=== PATIENT | female | born 1950 | race Caucasian/White ===

== ENCOUNTER 2016-06-14 11:19 | Observation (INO) ==
--- NOTE | 2016-06-14 11:49 | Emergency Department Note ---
Disposition Clinical Impression: Acute exacerbation of chronic obstructive airways disease, CAD (coronary artery disease), UTI (urinary tract infection), Bronchitis, Sepsis, Tachycardia Disposition: Admitted As Inpatient Referrals: Eagle Olivares MD [Primary Care Provider] - General Adult HPI - General Stated complaint: A-fib, chest pain Time Seen by Provider: 06/14/16 11:46 - History of Present Illness HPI Narrative: 65-year-old female with history of COPD, she is not oxygen dependent, she reports emergency department complaining of a cough runny nose and some ear pain and sore throat. She reports multiple sick contacts. The patient has had a fever. She was sent in by primary care for concerns regarding fast heart rate. The patient denies any syncope coughing up blood and no abdominal pain vomiting or diarrhea. She reports chest pain only with coughing or on occasion when breathing in and out. She has had no leg swelling or pain or coughing of blood she does not take blood thinner she has no personal history of DVT PE but does have a history of lung cancer and previous pneumonectomy. There is no history of back pain or urinary symptoms. There is no history of syncope. No falls or injuries. The patient does have a history of CAD. No trouble moving the arms or legs independently. There is no history of flank pain back pain or any other complaint or concern. - Related Data Home Medications Medication Instructions Recorded Confirmed Albuterol Neb [Proventil Neb] 2.5 mg IH TID 06/12/15 06/14/16 Aspirin [Adult Low Dose Aspirin EC] 325 mg PO DAILY 06/12/15 06/14/16 Isosorbide MONOnitrate (24 HR) 30 mg PO DAILY 06/12/15 06/14/16 [Imdur] Metoprolol [Lopressor] 25 mg PO DAILY 06/12/15 06/14/16 Albuterol Sulfate [Proair Hfa] 2 puff IH Q6H 06/14/16 06/14/16 Budesonide/Formoterol 160/4.5 2 puff IH BID 06/14/16 06/14/16 [Symbicort 160/4.5] Allergies Allergy/AdvReac Type Severity Reaction Status Date / Time cephalexin [From Keflex] Allergy Hives Verified 06/12/15 09:08 codeine Allergy Chest Pain Verified 06/12/15 09:08 Penicillins Allergy Hives Verified 06/12/15 09:08 Qgyvnjv-Djw-Net Reductase AdvReac Muscle Pain Verified 06/14/16 15:34 Inhibitor All systems ED: reviewed and negative except as stated. Past Medical History - Past Medical History Medical history: Reports: COPD, dementia, hyperlipidemia, myocardial infarction , other Surgical history: Reports: angioplasty/stent, appendectomy, cholecystectomy, hysterectomy Psychiatric history: Reports: no psych history - Social History Smoking Status: Current every day smoker Smokeless Tobacco Status: No Alcohol use: Reports: none Drug use: Reports: none Physical Exam - General Limitations: no limitations General appearance: alert, in no apparent distress - Head Head exam: atraumatic, normocephalic, normal inspection - Eye Eye exam: Present: normal appearance, PERRL, EOMI - ENT ENT exam: normal exam, normal oropharynx, mucous membranes moist, normal external ear exam, other (Incompletely visualized tympanic membrane secondary to cerumen) - Neck Neck exam: Present: normal inspection, full ROM, trachea midline - Chest Chest inspection: Present: normal inspection, symmetric chest wall rise - Respiratory Respiratory exam: Present: wheezes, prolonged expiratory phase. Absent: respiratory distress - Cardiovascular Cardiovascular exam: Present: normal rhythm, tachycardia - Abdominal Exam Abdominal exam: Present: soft, Non-Tender. Absent: tenderness, distention, guarding, rebound, rigidity, pulsatile mass - Extremities Exam Extremities exam: Present: normal inspection, full ROM, normal capillary refill. Absent: tenderness, pedal edema, joint swelling, calf tenderness - Expanded Lower Extremity Exam Hip/Pelvis exam: Present: full ROM. Absent: tenderness Upper leg exam: Present: full ROM. Absent: tenderness Knee exam: Present: full ROM. Absent: tenderness Lower leg exam: Present: full ROM. Absent: tenderness, Homans' sign Foot/toe exam: Present: full ROM. Absent: tenderness Neurovascular/Tendon exam: Absent: motor deficit, sensory deficit, tendon deficit - Back Exam Back exam: Present: normal inspection, full ROM. Absent: tenderness, CVA tenderness (L), muscle spasm, vertebral tenderness - Neurological Exam Neurological exam: Present: alert, oriented X3, CN II-XII intact. Absent: motor sensory deficit - Psychiatric Psychiatric exam: Present: normal affect, normal mood - Skin Skin exam: Present: warm, dry, intact, normal color. Absent: rash, cyanosis, diaphoresis, erythema, pallor, mottled Course Vital Signs Temperature 101.3 F H 06/14/16 12:19 Pulse Rate 115 06/14/16 12:19 Respiratory Rate 16 06/14/16 12:19 Blood Pressure 140/92 06/14/16 12:19 O2 Sat by Pulse Oximetry 96 06/14/16 12:19 Temperature 98.7 F 06/14/16 15:00 Pulse Rate 112 06/14/16 15:00 Respiratory Rate 18 06/14/16 15:00 Blood Pressure 113/68 06/14/16 15:00 O2 Sat by Pulse Oximetry 94 L 06/14/16 15:00 Oxygen Delivery Oxygen Delivery Nasal Cannula Medical Decision Making - MDM Narrative Medical decision making narrative: The patient is tachycardic, febrile, and has apparent bronchitis and reactive chest adenopathy as well as what appears to be a UTI. She meets sepsis criteria. IV fluids were given. Lactate negative. Antibiotics initiated. The patient was given a DuoNeb. She was significantly wheezy here in the emergency department. She does have a history of malignancy with previous pneumonectomy and baseline COPD as well as coronary artery disease. Based on her persistent wheezing, tachycardia, and what appears to be sepsis, I thought appropriate to consult the hospitalist for admission. She is currently stable. A second DuoNeb has been ordered. - Lab Data Lab results reviewed: Yes I reviewed the patient's lab results. Result diagrams: 06/14/16 12:19 06/14/16 12:19 Lab Results 06/14/16 06/14/16 06/14/16 Range/Units 12:19 12:19 12:19 WBC (4.3-11.1) K/mcL RBC (3.82-4.97) M/mcL Hgb (11.5-15.4) g/dL Hct (35.3-44.9) % MCV (83.0-100.0) fL MCH (28.0-33.3) pg MCHC (31.6-35.5) g/dL RDW (11.5-14.5) % Plt Count (140-400) K/mcL MPV (9.4-12.4) fL Immature Gran % (0-4) % Seg Neutrophils % % Lymphocytes % % Monocytes % % Eosinophils % % Basophils % % Neutrophils # (1.6-8.9) K/mcL Lymphocytes # (0.6-4.6) K/mcL Monocytes # (0.0-1.3) K/mcL Eosinophils # (0.0-0.6) K/mcL Basophils # (0.0-0.2) K/mcL PT 11.5 (9.4-12.1) Seconds INR 1.1 APTT 34.3 (26.0-36.0) Seconds D-Dimer (0-500) ng/mLFEU Sodium (136-145) mEq/L Potassium (3.5-4.5) mEq/L Chloride (98-109) mEq/L Carbon Dioxide (19-29) mEq/L BUN (7-20) mg/dL Creatinine (0.57-1.11) mg/dL Est GFR ( Amer) (> 60) Est GFR (Non-Af Amer) (> 60) BUN/Creatinine Ratio (6-26) Glucose (70-99) mg/dL Calculated Osmolality (280-300) Lactic Acid (0.5-2.2) mmol/L Calcium (8.6-10.8) mg/dL Total Bilirubin 0.5 (0.2-1.2) mg/dL Direct Bilirubin 0.2 (0.0-0.5) mg/dL Indirect Bilirubin 0.3 (0.0-1.2) mg/dL AST 17 (5-34) Units/L ALT 16 (0-55) Units/L Alkaline Phosphatase 95 (38-126) Units/L Troponin I (0-0.03) ng/mL C-Reactive Protein (Less than 5) mg/L B-Natriuretic Peptide 12 (0-100) pg/mL Serum Total Protein 7.9 (6.0-8.3) g/dL Albumin 3.7 (3.5-5.0) g/dL Globulin 4.2 H (2.4-3.5) g/dL Albumin/Globulin Ratio 0.9 L (1.1-2.2) Lipase 20 (8-78) Units/L Urine Color (Yellow) Urine Clarity (Clear) Urine pH (5.0-8.0) pH Units Ur Specific [place] (1.010-1.025) Urine Protein (Neg-Trace) mg/dL Urine Glucose (UA) (Normal) mg/dL Urine Ketones (Negative) mg/dL Urine Blood (Negative) Urine Nitrite (Negative) Urine Bilirubin (Negative) Urine Urobilinogen (Normal) mg/dL Ur Leukocyte Esterase (Negative) Urine Microscopic RBC (0-3) per hpf Urine Microscopic WBC (0-3) per hpf Ur Squamous Epith Cells (None-Few) per lpf Urine Bacteria (None-Few) per hpf Hyaline Casts (None-Few) per lpf Ur Culture Indicated? (NO) 06/14/16 06/14/16 06/14/16 Range/Units 12:19 12:19 12:19 WBC (4.3-11.1) K/mcL RBC (3.82-4.97) M/mcL Hgb (11.5-15.4) g/dL Hct (35.3-44.9) % MCV (83.0-100.0) fL MCH (28.0-33.3) pg MCHC (31.6-35.5) g/dL RDW (11.5-14.5) % Plt Count (140-400) K/mcL MPV (9.4-12.4) fL Immature Gran % (0-4) % Seg Neutrophils % % Lymphocytes % % Monocytes % % Eosinophils % % Basophils % % Neutrophils # (1.6-8.9) K/mcL Lymphocytes # (0.6-4.6) K/mcL Monocytes # (0.0-1.3) K/mcL Eosinophils # (0.0-0.6) K/mcL Basophils # (0.0-0.2) K/mcL PT (9.4-12.1) Seconds INR APTT (26.0-36.0) Seconds D-Dimer 900 H (0-500) ng/mLFEU Sodium (136-145) mEq/L Potassium (3.5-4.5) mEq/L Chloride (98-109) mEq/L Carbon Dioxide (19-29) mEq/L BUN (7-20) mg/dL Creatinine (0.57-1.11) mg/dL Est GFR ( Amer) (> 60) Est GFR (Non-Af Amer) (> 60) BUN/Creatinine Ratio (6-26) Glucose (70-99) mg/dL Calculated Osmolality (280-300) Lactic Acid 1.1 (0.5-2.2) mmol/L Calcium (8.6-10.8) mg/dL Total Bilirubin (0.2-1.2) mg/dL Direct Bilirubin (0.0-0.5) mg/dL Indirect Bilirubin (0.0-1.2) mg/dL AST (5-34) Units/L ALT (0-55) Units/L Alkaline Phosphatase (38-126) Units/L Troponin I (0-0.03) ng/mL C-Reactive Protein 83 H (Less than 5) mg/L B-Natriuretic Peptide (0-100) pg/mL Serum Total Protein (6.0-8.3) g/dL Albumin (3.5-5.0) g/dL Globulin (2.4-3.5) g/dL Albumin/Globulin Ratio (1.1-2.2) Lipase (8-78) Units/L Urine Color (Yellow) Urine Clarity (Clear) Urine pH (5.0-8.0) pH Units Ur Specific [place] (1.010-1.025) Urine Protein (Neg-Trace) mg/dL Urine Glucose (UA) (Normal) mg/dL Urine Ketones (Negative) mg/dL Urine Blood (Negative) Urine Nitrite (Negative) Urine Bilirubin (Negative) Urine Urobilinogen (Normal) mg/dL Ur Leukocyte Esterase (Negative) Urine Microscopic RBC (0-3) per hpf Urine Microscopic WBC (0-3) per hpf Ur Squamous Epith Cells (None-Few) per lpf Urine Bacteria (None-Few) per hpf Hyaline Casts (None-Few) per lpf Ur Culture Indicated? (NO) 06/14/16 06/14/16 06/14/16 Range/Units 12:19 12:19 12:19 WBC 9.7 (4.3-11.1) K/mcL RBC 5.79 H (3.82-4.97) M/mcL Hgb 15.8 H (11.5-15.4) g/dL Hct 49.7 H (35.3-44.9) % MCV 85.8 (83.0-100.0) fL MCH 27.3 L (28.0-33.3) pg MCHC 31.8 (31.6-35.5) g/dL RDW 15.2 H (11.5-14.5) % Plt Count 239 (140-400) K/mcL MPV 9.6 (9.4-12.4) fL Immature Gran % 0.5 (0-4) % Seg Neutrophils % 84.7 % Lymphocytes % 7.8 % Monocytes % 6.3 % Eosinophils % 0.2 % Basophils % 0.5 % Neutrophils # 8.2 (1.6-8.9) K/mcL Lymphocytes # 0.8 (0.6-4.6) K/mcL Monocytes # 0.6 (0.0-1.3) K/mcL Eosinophils # 0.0 (0.0-0.6) K/mcL Basophils # 0.1 (0.0-0.2) K/mcL PT (9.4-12.1) Seconds INR APTT (26.0-36.0) Seconds D-Dimer (0-500) ng/mLFEU Sodium 136 (136-145) mEq/L Potassium 4.1 (3.5-4.5) mEq/L Chloride 103 (98-109) mEq/L Carbon Dioxide 22 (19-29) mEq/L BUN 7 (7-20) mg/dL Creatinine 0.66 (0.57-1.11) mg/dL Est GFR ( Amer) > 60 (> 60) Est GFR (Non-Af Amer) > 60 (> 60) BUN/Creatinine Ratio 11 (6-26) Glucose 99 (70-99) mg/dL Calculated Osmolality 280 (280-300) Lactic Acid (0.5-2.2) mmol/L Calcium 9.5 (8.6-10.8) mg/dL Total Bilirubin (0.2-1.2) mg/dL Direct Bilirubin (0.0-0.5) mg/dL Indirect Bilirubin (0.0-1.2) mg/dL AST (5-34) Units/L ALT (0-55) Units/L Alkaline Phosphatase (38-126) Units/L Troponin I 0.01 (0-0.03) ng/mL C-Reactive Protein (Less than 5) mg/L B-Natriuretic Peptide (0-100) pg/mL Serum Total Protein (6.0-8.3) g/dL Albumin (3.5-5.0) g/dL Globulin (2.4-3.5) g/dL Albumin/Globulin Ratio (1.1-2.2) Lipase (8-78) Units/L Urine Color (Yellow) Urine Clarity (Clear) Urine pH (5.0-8.0) pH Units Ur Specific [place] (1.010-1.025) Urine Protein (Neg-Trace) mg/dL Urine Glucose (UA) (Normal) mg/dL Urine Ketones (Negative) mg/dL Urine Blood (Negative) Urine Nitrite (Negative) Urine Bilirubin (Negative) Urine Urobilinogen (Normal) mg/dL Ur Leukocyte Esterase (Negative) Urine Microscopic RBC (0-3) per hpf Urine Microscopic WBC (0-3) per hpf Ur Squamous Epith Cells (None-Few) per lpf Urine Bacteria (None-Few) per hpf Hyaline Casts (None-Few) per lpf Ur Culture Indicated? (NO) 06/14/16 Range/Units 13:40 WBC (4.3-11.1) K/mcL RBC (3.82-4.97) M/mcL Hgb (11.5-15.4) g/dL Hct (35.3-44.9) % MCV (83.0-100.0) fL MCH (28.0-33.3) pg MCHC (31.6-35.5) g/dL RDW (11.5-14.5) % Plt Count (140-400) K/mcL MPV (9.4-12.4) fL Immature Gran % (0-4) % Seg Neutrophils % % Lymphocytes % % Monocytes % % Eosinophils % % Basophils % % Neutrophils # (1.6-8.9) K/mcL Lymphocytes # (0.6-4.6) K/mcL Monocytes # (0.0-1.3) K/mcL Eosinophils # (0.0-0.6) K/mcL Basophils # (0.0-0.2) K/mcL PT (9.4-12.1) Seconds INR APTT (26.0-36.0) Seconds D-Dimer (0-500) ng/mLFEU Sodium (136-145) mEq/L Potassium (3.5-4.5) mEq/L Chloride (98-109) mEq/L Carbon Dioxide (19-29) mEq/L BUN (7-20) mg/dL Creatinine (0.57-1.11) mg/dL Est GFR ( Amer) (> 60) Est GFR (Non-Af Amer) (> 60) BUN/Creatinine Ratio (6-26) Glucose (70-99) mg/dL Calculated Osmolality (280-300) Lactic Acid (0.5-2.2) mmol/L Calcium (8.6-10.8) mg/dL Total Bilirubin (0.2-1.2) mg/dL Direct Bilirubin (0.0-0.5) mg/dL Indirect Bilirubin (0.0-1.2) mg/dL AST (5-34) Units/L ALT (0-55) Units/L Alkaline Phosphatase (38-126) Units/L Troponin I (0-0.03) ng/mL C-Reactive Protein (Less than 5) mg/L B-Natriuretic Peptide (0-100) pg/mL Serum Total Protein (6.0-8.3) g/dL Albumin (3.5-5.0) g/dL Globulin (2.4-3.5) g/dL Albumin/Globulin Ratio (1.1-2.2) Lipase (8-78) Units/L Urine Color Yellow (Yellow) Urine Clarity Clear (Clear) Urine pH 6.0 (5.0-8.0) pH Units Ur Specific [place] 1.008 L (1.010-1.025) Urine Protein Negative (Neg-Trace) mg/dL Urine Glucose (UA) Normal (Normal) mg/dL Urine Ketones Negative (Negative) mg/dL Urine Blood Large H (Negative) Urine Nitrite Negative (Negative) Urine Bilirubin Negative (Negative) Urine Urobilinogen Normal (Normal) mg/dL Ur Leukocyte Esterase Small H (Negative) Urine Microscopic RBC 15-30 H (0-3) per hpf Urine Microscopic WBC 3-5 H (0-3) per hpf Ur Squamous Epith Cells Many H (None-Few) per lpf Urine Bacteria None Seen (None-Few) per hpf Hyaline Casts None Seen (None-Few) per lpf Ur Culture Indicated? YES A (NO) - Radiology Data Radiology results reviewed: Yes I reviewed the patient's radiology results.
[2016-06-14 12:28] LABS: Basophils # 0.1 K/mcL (0.0-0.2); Basophils % 0.5 %; Eosinophils % 0.2 %; Hematocrit 49.7 % (35.3-44.9); Hemoglobin 15.8 g/dL (11.5-15.4); Immature Granulocytes % 0.5 % (0-4); Lymphocytes # 0.8 K/mcL (0.6-4.6); Lymphocytes % 7.8 %; Mean Corpuscular HGB Conc 31.8 g/dL (31.6-35.5); Mean Corpuscular Hemoglobin 27.3 pg (28.0-33.3); Mean Corpuscular Volume 85.8 fL (83.0-100.0); Mean Platelet Volume 9.6 fL (9.4-12.4); Monocytes # 0.6 K/mcL (0.0-1.3); Monocytes % 6.3 %; Neutrophils # 8.2 K/mcL (1.6-8.9); Platelet Count 239 K/mcL (140-400); Red Blood Count 5.79 M/mcL (3.82-4.97); Red Cell Distribution Width 15.2 % (11.5-14.5); Segmented Neutrophils % 84.7 %
[2016-06-14 12:35] LABS: INR 1.1; Prothrombin Time 11.5 Seconds (9.4-12.1)
[2016-06-14 12:38] LABS: Activated Partial Thrombo Time 34.3 Seconds (26.0-36.0)
[2016-06-14 12:42] LABS: BUN/Creatinine Ratio 11 (6-26); Blood Urea Nitrogen 7 mg/dL (7-20); Calcium 9.5 mg/dL (8.6-10.8); Carbon Dioxide 22 mEq/L (19-29); Chloride 103 mEq/L (98-109); Glucose 99 mg/dL (70-99); Osmolality,Calculated 280 (280-300); Potassium 4.1 mEq/L (3.5-4.5); Sodium 136 mEq/L (136-145); eGFR For African Americans > 60 (> 60); eGFR For Non-African Americans > 60 (> 60)
[2016-06-14 12:43] LABS: Albumin 3.7 g/dL (3.5-5.0); Albumin/Globulin Ratio 0.9 (1.1-2.2); Bilirubin,Direct 0.2 mg/dL (0.0-0.5); Bilirubin,Indirect 0.3 mg/dL (0.0-1.2); Bilirubin,Total 0.5 mg/dL (0.2-1.2); Globulin 4.2 g/dL (2.4-3.5); Total Protein 7.9 g/dL (6.0-8.3)
[2016-06-14] MEDS ORDERED: 0.9 % Sodium Chloride 1,000 ML IVC ONE ×2 (13:10→16:45)
[2016-06-14] MEDS ORDERED: Ipratropium/Albuterol Neb 3 ML IH ONE ×2 (13:18→16:45)
[2016-06-14] MEDS ORDERED: methylPREDNISolone 125 MG/2 ML VIAL IVP ONE (13:19)
[2016-06-14] MEDS ORDERED: Levofloxacin 750 MG/150 ML 750 MG/150 ML BAG IVPB ONE (13:38)
[2016-06-14 13:44] LABS: Bilirubin,Urine Negative (Negative); Blood,Urine Large (Negative); Clarity,Urine Clear (Clear); Color,Urine Yellow (Yellow); Glucose,Urine (UA) Normal (Normal); Ketones,Urine Negative (Negative); Leukocyte Esterase,Urine Small (Negative); Nitrite,Urine Negative (Negative); Protein,Urine Negative (Neg-Trace); Specific Gravity,Urine 1.008 (1.010-1.025); Urobilinogen,Urine Normal (Normal)
[2016-06-14 13:45] LABS: Bacteria,Urine None Seen per hpf (None-Few); Hyaline Casts,Urine None Seen per lpf (None-Few); RBC,Urine 15-30 per hpf (0-3); Squamous Epithelial Cell,Urine Many per lpf (None-Few)
[2016-06-14] MEDS ORDERED: Naloxone 0.4 MG/ML INJ IVP PRN (17:48)
[2016-06-14] MEDS ORDERED: Albuterol 2.5 MG/3 ML NEBULIZER IH PRN (18:35)
--- NOTE | 2016-06-14 18:49 | Internal Med History&Physical ---
Date of Encounter: 06/14/16 Time of Encounter: 18:30 Assessment and Plan (1) Acute exacerbation of chronic obstructive airways disease Current visit: Yes Status: Acute 1 patient has expiratory wheezes. We will continue with steroids and taper 2 oxygen as needed to maintain SPO2 greater than 90% 3 bronchodilators (2) Bronchitis Current visit: Yes Status: Acute 1 patient has history of COPD as well as has been exposed to sick contacts continue with oxygen bronchodilators 2 we will give Levaquin 3 we will obtain sputum cultures (3) Sepsis Current visit: Yes Status: Acute 1 patient presented tachycardiac as well as hypotensive with a temperature 101. Suspect respiratory source 2 patient was given IV fluid boluses will continue with IV fluid overnight 3 blood cultures obtained we will obtain sputum cultures 4 we will swab for influenza 5 Will monitor intake and output 6 cardiac monitoring-and tenuous oxygen maintain SPO2 greater than 92% (4) CAD (coronary artery disease) Current visit: Yes Status: Chronic 1 has history of CAD with stent placement presently not having any chest pain 2. We will continue with aspirin and beta crystal patient is allergic to statin Qualifiers: Coronary Disease-Associated Artery/Lesion type: [place] artery [place] vs. transplanted heart: [place] heart Associated angina: with stable angina Qualified Code(s): I25.118 - Atherosclerotic heart disease of [place] coronary artery with other forms of angina pectoris (5) DVT prophylaxis Current visit: No Status: Acute 1 encourage early ambulation (6) Current smoker Current visit: No Status: Chronic 1 encouraged patient to stop smoking offered nicotine patch declined at this time (7) Chest pain Current visit: Yes Status: Acute 1 presently chest pain-free first cardiac troponins are negative we will continue to cycle troponins 2 continuous cardiac monitoring Qualifiers: Chest pain type: unspecified Qualified Code(s): R07.9 - Chest pain, unspecified Internal Medicine - H&P: HPI Chief complaint: Shortness of breath, chest pain Admitted From: Home Plans for Post Hospital Care: Home History of present illness: Ms. Reyes is a 65 year old female with past medical history of COPD non-oxygen dependent CAD with 2 stent placement history of lung cancer with pneumonectomy hyperlipidemia DE. The patient has been experiencing a nonproductive cough and runny nose fevers and chills general malaise and sore throat since Tuesday. She has been exposed to sick contacts prior to the onset of symptoms. She has been feeling short of breath starting this morning source of breath is on exertion. She checked her SPO2 and noted that her heart rate was 148 she presented to her PCP with the above complaints. EKG was obtained and there was some concern about atrial fibrillation and the patient was sent to the emergency room for evaluation. In the ER patient presented tachycardic and febrile with a heart rate of 112 and temperature of 101. Blood cultures were obtained and patient was given IV fluids lactate was negative she was given antibiotics and given duo nebs. There is no leukocytosis, she did have an elevated d-dimer which is CTA was completed and negative for PE and she also did have trace as well as blood in her urine she denies any urinary complaints. She was admitted for further workup and evaluation. Presently the patient denies any chest pain or shortness of breath. Her saturations are stable at this time is 96% heart rate continues to be 103 blood pressure systolic is above 100 she denies any pain or discomfort at this time. Reviewed case with Dr Smith who agrees with plan Past Med Surg Social Fam HX - Past Medical History Medical history: COPD, dementia, hyperlipidemia, myocardial infarction, other Psychiatric history: no psych history - Past Surgical History Surgical History: angioplasty/stent, appendectomy, cholecystectomy, hysterectomy - Social History Smoking Status: Current every day smoker Smokeless Tobacco Status: No Alcohol use: none Drug use: none - Family History Mother Adopted: No Living Status: Hx Family Cardiac Disorders: No Hx Family Respiratory Disorders: Yes (COPD) Hx Family Cancer: Yes (Lung CA) Hx Family GI Disorders: No Hx Family Endocrine Disorder: No Hx Family Neuromuscular Disorders: No Hx Family Neurologic Disorders: No Hx Family HEENT Disorders: No Hx Family Autoimmune Disorders: No Internal Medicine - H&P: Meds Albuterol Neb [Proventil Neb] 2.5 mg IH TID 06/12/15 [History] Aspirin [Adult Low Dose Aspirin EC] 325 mg PO DAILY 06/12/15 [History] Isosorbide MONOnitrate (24 HR) [Imdur] 30 mg PO DAILY 06/12/15 [History] Metoprolol [Lopressor] 25 mg PO DAILY 06/12/15 [History] Albuterol Sulfate [Proair Hfa] 2 puff IH Q6H 06/14/16 [History] Budesonide/Formoterol 160/4.5 [Symbicort 160/4.5] 2 puff IH BID 06/14/16 [ History] Allergies cephalexin [From Keflex] Allergy (Verified 06/12/15 09:08) Hives codeine Allergy (Verified 06/12/15 09:08) Chest Pain Penicillins Allergy (Verified 06/12/15 09:08) Hives [id number] Reductase Inhibitor Adverse Reaction (Verified 06/14/16 15:34) Muscle Pain All Systems PM: A 10-system review of systems was performed and is negative for pertinent findings except as documented above in the HPI. - Constitutional Constitutional: chills, fever(s), lethargy, malaise - EENT Nose, mouth and throat: nasal congestion - Cardiovascular Cardiovascular ROS IM: chest pain, dyspnea on exertion - Respiratory Respiratory: cough, dyspnea on exertion - Gastrointestinal Gastrointestinal: no abdominal pain, no diarrhea, no hematemesis, no hematochezia, no melena, no nausea, no vomiting - Genitourinary Genitourinary: no change in urinary stream, no dysuria, no flank pain, no hematuria - Musculoskeletal Musculoskeletal ROS IM: no numbness, no tingling - Integumentary Integumentary IM: no rash, no unusual bruising - Neurological Neurological ROS: no confusion, no convulsions, no focal weakness, no numbness, no tingling, no tremor(s) - Hematologic/Lymphatic Hematologic/Lymphatic: no easy bruising - Constitutional Vitals: Temp Pulse Resp BP Pulse Ox 98.7 F 103 18 105/85 92 L 06/14/16 17:46 06/14/16 16:30 06/14/16 17:46 06/14/16 17:46 06/14/16 18:35 General appearance: Present: A&O X 3, pleasant, answers questions appropriately - Head Head exam: Present: atraumatic, normocephalic - Eye Eye exam: Present: PERRL, conjuntiva pink, sclera anicteric Pupils: Present: PERRL - Respiratory Respiratory exam: Present: wheezes. Absent: accessory muscle use, rales, rhonchi Additional comments: Faint expiratory wheezing throughout - Cardiovascular Cardiovascular exam: Present: RRR, +S1, +S2. Absent: diastolic murmur, gallop, rubs, systolic murmur - GI/Abdominal GI/Abdominal exam: Present: normal bowel sounds, soft, no peritoneal signs. Absent: distended, tenderness - Extremities Exam Extremities exam: Present: warm, radial pulses palpable and symetrical. Absent : calf tenderness, cyanotic, pedal edema - Neurological Exam Neurological exam: Present: CN II-XII intact, oriented X3, no focal deficits. Absent: pronater drift, facial droop, speech deficit - Skin Skin exam: Present: dry, intact Internal Med - H&P Results - Labs CBC & Chem 7: 06/14/16 12:19 06/14/16 12:19 - EKG Data EKG shows normal: sinus rhythm Rate: tachycardia - EKG Data Prior EKG available for review: yes When compared to previous EKG: there is no significant change Interpretation IM: normal EKG - Diagnostic Studies Chest x-ray Additional comments: Per radiology read impression of COPD bronchitis CT scan - chest Additional comments: Per radiology read no evidence of pulmonary embolism Chronic parenchymal lung disease with bronchial wall thickening likely her chronic process including possible etiologies such as bacterial organisms. Slight interval enlargement of sub-carinal and left hilar lymph nodes are presumably reactive Status post partial right pneumonectomy
[2016-06-14] MEDS: 0.9 % Sodium Chloride 1,000 ML IVC SCH (18:56)
[2016-06-14] MEDS: Budesonide/Formoterol 160/4.5 MDI IH SCH (23:18)
[2016-06-14] MEDS: Ipratropium/Albuterol Neb 3 ML IH SCH (23:20)
[2016-06-15] MEDS: methylPREDNISolone 125 MG/2 ML VIAL IVP SCH ×4 (00:26→23:28)
[2016-06-15] MEDS: 0.9 % Sodium Chloride 1,000 ML IVC SCH (05:10)
[2016-06-15] MEDS: Ipratropium/Albuterol Neb 3 ML IH SCH ×4 (05:24→22:45)
[2016-06-15] MEDS ORDERED: *HR* Enoxaparin 30 MG/0.3 ML SYRINGE SQ SCH (06:00)
[2016-06-15] MEDS: Isosorbide MONOnitrate (24 HR) 30 MG TAB.ER.24H PO SCH (09:32)
[2016-06-15] MEDS: Aspirin Enteric Coated 325 MG Tablet PO SCH (09:32)
--- NOTE | 2016-06-15 09:40 | Internal Med Progress Note ---
Date of Encounter: 06/15/16 Time of Encounter: 09:38 - Assessment and plan (1) Sepsis Current Visit: Yes Status: Acute Assessment and plan: Likely related to acute bronchitis. Patient presented with fever spike, tachycardia, hypoxia with CTA chest showing no evidence of pneumonia. Vital signs improved today. Lactic acid noted to be normal. Continue IV hydration. Change Levaquin to 500 mg daily. Blood cultures negative so far. Influenza antigen negative. Follow-up urine strep pneumonia and legionella antigen. Qualifiers: Sepsis type: sepsis due to unspecified organism Qualified Code(s): A41.9 - Sepsis, unspecified organism (2) Acute exacerbation of chronic obstructive airways disease Current Visit: Yes Status: Acute Assessment and plan: Improving. Continue tapering IV steroids as tolerated. Continue inhaled corticosteroids and bronchodilators along with when necessary supplemental oxygen. May require home oxygen if FiO2 cannot be tapered down. (3) Tobacco abuse Current Visit: Yes Status: Chronic Assessment and plan: Smoking cessation counseling done for 5 minutes. Patient verbalized understanding the ill effects of smoking on her coronary artery disease and COPD , however has a difficult time trying to quit. She does not request a nicotine patch at this time. (4) CAD (coronary artery disease) Current Visit: Yes Status: Chronic Assessment and plan: Continue aspirin, statin, beta crystal. Qualifiers: Coronary Disease-Associated Artery/Lesion type: [place] artery [place] vs. transplanted heart: [place] heart Associated angina: without angina Qualified Code(s): I25.10 - Atherosclerotic heart disease of [place] coronary artery without angina pectoris (5) Essential hypertension Current Visit: Yes Status: Chronic - Subjective Interval history: Improved shortness of breath, tachycardia, chest pain; good appetite. No fever , chills. - Constitutional Vitals: Temp Pulse Resp BP Pulse Ox 97.9 F 87 117 107/62 94 L 06/15/16 08:24 06/15/16 08:24 06/15/16 08:24 06/15/16 08:24 06/15/16 08:24 General appearance: Present: A&O X 3, answers questions appropriately - Head Head exam: Present: atraumatic, normocephalic - Neck Neck exam general surgery: Present: supple, trachea midline. Absent: lymphadenopathy - Respiratory Respiratory exam: Present: rhonchi (Diffuse rhonchi bilaterally). Absent: accessory muscle use, rales, wheezes - Cardiovascular Cardiovascular exam: Present: RRR, +S1, +S2. Absent: diastolic murmur, gallop, rubs, systolic murmur - GI/Abdominal GI/Abdominal exam: Present: normal bowel sounds, soft, no peritoneal signs. Absent: distended, tenderness - Extremities Exam Extremities exam: Present: warm, radial pulses palpable and symetrical. Absent : calf tenderness, cyanotic, pedal edema - Neurological Exam Neurological exam: Present: CN II-XII intact, oriented X3, no focal deficits. Absent: pronater drift, facial droop, speech deficit - Skin Skin exam: Present: dry, intact Internal Medicine: Result - Labs CBC & Chem 7: 06/14/16 12:19 06/14/16 12:19 Labs: Cardiac Enzymes 06/14/16 06/15/16 Range/Units 18:50 01:15 Troponin I 0.00 0.00 (0-0.03) ng/mL - ABG Interpretation ABG results: PT/INR, D-dimer PT 11.5 Seconds (9.4-12.1) 06/14/16 12:19 D-Dimer 900 ng/mLFEU (0-500) H 06/14/16 12:19 - VTE Reasons for not Prescribing Prophylaxis: Treatment not Indicated - Low risk for VTE Consult Discharge Plan - Plan Referrals: Eagle Olivares MD [Primary Care Provider] -
[2016-06-15] MEDS: Budesonide/Formoterol 160/4.5 MDI IH SCH ×2 (10:32→22:44)
[2016-06-15] MEDS ORDERED: Levofloxacin 500 MG/100 ML 500 MG/100 ML BAG IVPB SCH (14:00)
[2016-06-15] MEDS ORDERED: Levofloxacin 750 MG/150 ML 750 MG/150 ML BAG IVPB SCH (14:00)
--- NOTE | 2016-06-15 18:38 | Electrocardiograph Report ---
[facility] Test Date: 2016-06-14 Pat Name: Farideh Reyes Department: 103 Room: 2A23 Gender: F Coremaker: ALBERTO : 1950 Requested By: Rg Mclaughlin Order Number: [id number] Reading MD: Tammy Abbott Measurements Intervals [place] Rate: 113 P: 48 WA: 164 QRS: 96 QRSD: 84 T: 59 QT: 306 QTc: 373 Interpretive Statements SINUS TACHYCARDIA BORDERLINE RIGHT AXIS DEVIATION POSSIBLE RIGHT VENTRICULAR CONDUCTION DELAY ABNORMAL RHYTHM ECG Electronically Signed On 06-15-16 18:36:11 EST by Tammy Abbott
[2016-06-16] MEDS: Ipratropium/Albuterol Neb 3 ML IH SCH ×2 (04:28→10:13)
[2016-06-16] MEDS ORDERED: *HR* Enoxaparin 40 MG/0.4 ML SYRINGE SQ SCH (06:00)
[2016-06-16 06:30] LABS: BUN/Creatinine Ratio 14 (6-26); Blood Urea Nitrogen 8 mg/dL (7-20); Calcium 8.5 mg/dL (8.6-10.8); Carbon Dioxide 23 mEq/L (19-29); Chloride 108 mEq/L (98-109); Glucose 144 mg/dL (70-99); Osmolality,Calculated 291 (280-300); Potassium 4.1 mEq/L (3.5-4.5); Sodium 140 mEq/L (136-145); eGFR For African Americans > 60 (> 60); eGFR For Non-African Americans > 60 (> 60)
[2016-06-16 07:32] LABS: Basophils % 0.1 %; Hemoglobin 12.5 g/dL (11.5-15.4); Lymphocytes # 0.8 K/mcL (0.6-4.6); Mean Corpuscular HGB Conc 31.3 g/dL (31.6-35.5); Mean Corpuscular Hemoglobin 27.3 pg (28.0-33.3); Mean Corpuscular Volume 87.3 fL (83.0-100.0); Mean Platelet Volume 9.7 fL (9.4-12.4); Monocytes # 0.7 K/mcL (0.0-1.3); Neutrophils # 11.8 K/mcL (1.6-8.9); Platelet Count 263 K/mcL (140-400); Red Blood Count 4.58 M/mcL (3.82-4.97); Red Cell Distribution Width 15.4 % (11.5-14.5); Segmented Neutrophils % 87.9 %
[2016-06-16] MEDS: Isosorbide MONOnitrate (24 HR) 30 MG TAB.ER.24H PO SCH (08:24)
[2016-06-16] MEDS: methylPREDNISolone 125 MG/2 ML VIAL IVP SCH (08:24)
[2016-06-16] MEDS: Aspirin Enteric Coated 325 MG Tablet PO SCH (08:24)
--- NOTE | 2016-06-16 08:34 | Discharge Summary ---
Date of Encounter: 06/16/16 Time of Encounter: 08:32 - Discharge Diagnosis (1) Sepsis Priority: Primary Status: Acute Qualifiers: Sepsis type: sepsis due to unspecified organism Qualified Code(s): A41.9 - Sepsis, unspecified organism (2) Acute exacerbation of chronic obstructive airways disease Priority: Primary Status: Acute (3) Tobacco abuse Priority: Secondary Status: Chronic (4) CAD (coronary artery disease) Priority: Secondary Status: Chronic Qualifiers: Coronary Disease-Associated Artery/Lesion type: [place] artery [place] vs. transplanted heart: [place] heart Associated angina: without angina Qualified Code(s): I25.10 - Atherosclerotic heart disease of [place] coronary artery without angina pectoris (5) Essential hypertension Priority: Secondary Status: Chronic - Discharge Medications Prescriptions: Levofloxacin [Levaquin] 500 mg PO DAILY #5 tablet PredniSONE 60 mg PO DAILY 12 Days Home Medications: Albuterol Neb [Proventil Neb] 2.5 mg IH TID 06/12/15 [History] Aspirin [Adult Low Dose Aspirin EC] 325 mg PO DAILY 06/12/15 [History] Isosorbide MONOnitrate (24 HR) [Imdur] 30 mg PO DAILY 06/12/15 [History] Metoprolol [Lopressor] 25 mg PO DAILY 06/12/15 [History] Albuterol Sulfate [Proair Hfa] 2 puff IH Q6H 06/14/16 [History] Budesonide/Formoterol 160/4.5 [Symbicort 160/4.5] 2 puff IH BID 06/14/16 [ History] Levofloxacin [Levaquin] 500 mg PO DAILY #5 tablet 06/16/16 [Rx] PredniSONE 60 mg PO DAILY 12 Days 06/16/16 [Rx] Allergies/Adverse Reactions: Allergies cephalexin [From Keflex] Allergy (Verified 06/12/15 09:08) Hives codeine Allergy (Verified 06/12/15 09:08) Chest Pain Penicillins Allergy (Verified 06/12/15 09:08) Hives Yidvdps-Hoi-Gei Reductase Inhibitor Adverse Reaction (Verified 06/14/16 15:34) Muscle Pain Date of admission: 06/14/16 16:51 Primary care physician: Eagle Olivares MD Discharging clinician: Becky Brown Anticipated date of discharge: 01/18/17 - Patient Status Disposition: Home, Self-Care Condition: Fair Functional capacity at discharge: independent ambulation Overall status at discharge: patient is progressing back to baseline - Discharge Instructions Instructions: Urinary Tract Infection in Women (DC), Chronic Obstructive Pulmonary Disease (DC) Follow Up With: Eagle Olivares MD [Primary Care Provider] - 06/23/16 3:15 pm (Please follow up as schedule...) Forms: ED Satisfaction Letter - Diet and Activity Activity: resume usual activities as tolerated Diet: low fat, low cholesterol, low salt diet Hospital course: Ms. Reyes is a 65 year old female with history of chronic tobacco abuse and COPD was admitted with worsening shortness of breath and tachycardia. She was noted to have tachycardia, tachycardia and hypoxia briefly in the emergency room, which resolved with IV hydration and breathing treatments. EKG done in the emergency room showed sinus tachycardia with PVCs and PACs. She was noted to be having an acute exacerbation of COPD and was started on empiric antibiotics for acute bronchitis along with scheduled bronchodilators, supplemental oxygen as needed and was continued on her inhaled corticosteroids. She significantly improved on this regimen and her respiratory status improved. Blood cultures remained negative. I had a [id number] encounter with this patient today and she is deemed to have home oxygen requirements-She required no oxygen at rest, however on 6 minute walk test, she qualified to have 2 L/m via nasal cannula, which she initially refused but later was agreeable. She is noted to be ambulatory at home and would benefit from portable home oxygen. Prescription has been completed and social worker school notified of the same. - Time Spent with Patient Total time spent providing and/or coordinating discharge services: Greater than 30 minutes (45 min) - Constitutional Vitals: Temp Pulse Resp BP Pulse Ox 98.2 F 109 18 146/91 92 L 06/16/16 06:53 06/16/16 06:53 06/16/16 06:53 06/16/16 06:53 06/16/16 06:53 General appearance: Present: A&O X 3, answers questions appropriately - Head Head exam: Present: atraumatic, normocephalic - Neck Neck exam general surgery: Present: supple, trachea midline. Absent: lymphadenopathy - Respiratory Respiratory exam: Present: rhonchi (coarse bronchial breath sounds B/L, no active wheezing). Absent: accessory muscle use, rales, wheezes - Cardiovascular Cardiovascular exam: Present: RRR, +S1, +S2. Absent: diastolic murmur, gallop, rubs, systolic murmur - VTE Reasons for not Prescribing Prophylaxis: Treatment not Indicated - Low risk for VTE
[2016-06-16] MEDS: Budesonide/Formoterol 160/4.5 MDI IH SCH (10:12)
[2016-06-16 10:43] VITALS: BP 141/84
[2016-06-16] MEDS ORDERED: methylPREDNISolone 125 MG/2 ML VIAL IVP SCH (18:00)
[2016-06-17 08:15] LABS: Mycoplasma pneumoniae IgG 0.27 U/L (<=0.09)
== END 2016-06-16 11:06 | disposition home or self-care (01) ==
LOC: 2ANU 11:19 → EMEROO 11:19 → INTOOBSV 16:51 → SUATTDRO 16:51 → OBSVTOIN 16:51 → 2ANU 18:00
PROVIDERS: ADMIT Internal Medicine; ATTEND Internal Medicine

== ENCOUNTER 2017-02-03 17:39 | Observation (INO) ==
[2017-02-03] MEDS ORDERED: Aspirin 81 MG TAB.CHEW PO ONE (17:44)
[2017-02-03] MEDS ORDERED: Nitroglycerin 0.4 MG TAB.SUBL SL PRN (18:06)
[2017-02-03 18:17] LABS: Basophils # 0.1 K/mcL (0.0-0.2); Basophils % 0.7 %; Eosinophils # 0.2 K/mcL (0.0-0.6); Eosinophils % 2.4 %; Hematocrit 43.8 % (35.3-44.9); Hemoglobin 14.1 g/dL (11.5-15.4); Immature Granulocytes % 0.4 % (0-4); Lymphocytes # 2.1 K/mcL (0.6-4.6); Lymphocytes % 24.6 %; Mean Corpuscular HGB Conc 32.2 g/dL (31.6-35.5); Mean Corpuscular Hemoglobin 27.3 pg (28.0-33.3); Mean Corpuscular Volume 84.7 fL (83.0-100.0); Mean Platelet Volume 9.6 fL (9.4-12.4); Monocytes # 0.8 K/mcL (0.0-1.3); Monocytes % 9.3 %; Neutrophils # 5.3 K/mcL (1.6-8.9); Platelet Count 307 K/mcL (140-400); Red Blood Count 5.17 M/mcL (3.82-4.97); Red Cell Distribution Width 14.7 % (11.5-14.5); Segmented Neutrophils % 62.6 %
[2017-02-03 18:21] LABS: Prothrombin Time 10.7 Seconds (9.4-12.1)
[2017-02-03 18:29] LABS: BUN/Creatinine Ratio 13 (6-26); Blood Urea Nitrogen 8 mg/dL (7-20); Calcium 9.7 mg/dL (8.6-10.8); Carbon Dioxide 26 mEq/L (19-29); Chloride 102 mEq/L (98-109); Glucose 95 mg/dL (70-99); Osmolality,Calculated 284 (280-300); Sodium 138 mEq/L (136-145); eGFR For African Americans > 60 (> 60); eGFR For Non-African Americans > 60 (> 60)
--- NOTE | 2017-02-03 18:31 | Emergency Department Note ---
Disposition Clinical Impression: ACS (acute coronary syndrome) Disposition: Still a Patient Condition: Fair Forms: ED Satisfaction Letter Time of Disposition: 19:15 General Adult HPI - General Chief complaint: ED Chest Pain Stated complaint: CP/LEFTY Time Seen by Provider: 02/03/17 17:44 Source: patient Limitations: no limitations Nursing Notes Reviewed: Yes Vital Signs Reviewed: Yes - History of Present Illness HPI Narrative: History of present illness: 66-year-old female history of cardiac stent placed about 5 years ago. 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 She has been having increasing fatigue over the past 2-3 months per patient and her spouse at bedside. Patient had nitroglycerin at home but it was "old and outdated and she did not take it". Patient states that the pain initially was 10 out of 10 but now at 7 out of 10. She took an aspirin every other day. Patient still smokes a pack per day. And again has had no cardiac workup stress test or catheterizations within 5 years or longer. Patient denies diaphoresis headache or photophobia. Pain Scale: 8 - Related Data Home Medications Medication Instructions Recorded Confirmed Albuterol Neb [Proventil Neb] 2.5 mg IH TID 06/12/15 06/14/16 Aspirin [Adult Low Dose Aspirin EC] 325 mg PO DAILY 06/12/15 06/14/16 Isosorbide MONOnitrate (24 HR) 30 mg PO DAILY 06/12/15 06/14/16 [Imdur] Metoprolol [Lopressor] 25 mg PO DAILY 06/12/15 06/14/16 Albuterol Sulfate [Proair Hfa] 2 puff IH Q6H 06/14/16 06/14/16 Budesonide/Formoterol 160/4.5 2 puff IH BID 06/14/16 06/14/16 [Symbicort 160/4.5] Previous Rx's Medication Instructions Recorded levoFLOXacin [Levaquin] 500 mg PO DAILY #5 tablet 06/16/16 predniSONE [PredniSONE] 60 mg PO DAILY 12 Days 06/16/16 levoFLOXacin [Levaquin] 500 mg PO DAILY #4 tablet 06/21/16 Allergies Allergy/AdvReac Type Severity Reaction Status Date / Time cephalexin [From Keflex] Allergy Hives Verified 02/03/17 17:53 codeine Allergy Chest Pain Verified 02/03/17 17:53 Penicillins Allergy Hives Verified 02/03/17 17:53 Bfiqtmx-Itw-Ipn Reductase AdvReac Muscle Pain Verified 02/03/17 17:53 Inhibitor All systems ED: reviewed and negative except as stated. Constitutional: Reports: weakness Cardiovascular: Reports: chest pain, dyspnea on exertion Past Medical History - Past Medical History Attestation: Yes The following information was validated with the patient. Source: patient Medical history: Reports: cancer, COPD, dementia, hyperlipidemia, other Surgical history: Reports: angioplasty/stent, appendectomy, cholecystectomy, hysterectomy Psychiatric history: Reports: no psych history BEVERAGE HOST history: Reports: no BEVERAGE HOST history - Social History Smoking Status: Current every day smoker Smokeless Tobacco Status: No Alcohol use: Reports: none Drug use: Reports: none Physical Exam - General Limitations: no limitations General appearance: alert, in distress - Head Head exam: atraumatic, normocephalic - Eye Eye exam: Present: normal appearance, PERRL - ENT ENT exam: normal exam, normal oropharynx - Neck Neck exam: Present: normal inspection, full ROM - Chest Chest inspection: Present: normal inspection, symmetric chest wall rise - Respiratory Respiratory exam: Present: normal lung sounds bilaterally - Cardiovascular Cardiovascular exam: Present: regular rate, normal rhythm - Abdominal Exam Abdominal exam: Present: soft, Non-Tender - Extremities Exam Extremities exam: Present: normal inspection, full ROM. Absent: pedal edema - Expanded Lower Extremity Exam Neurovascular/Tendon exam: Present: normal capillary refill Gait: observed and normal - Back Exam Back exam: Present: normal inspection, full ROM - Neurological Exam Neurological exam: Present: alert, oriented X3, CN II-XII intact - Psychiatric Psychiatric exam: Present: normal affect, normal mood - Skin Skin exam: Present: warm, dry, intact Course - Reevaluation(s) Reevaluation #1: ED workup is complete. Patient is getting nitroglycerin and other medicines for chest pain. Troponin is negative EKG shows emphysematous changes and prior upper lobectomy scar. Hospitalist has been paged. Decision is made to admit. Provided 40 minutes of critical care services for this patient. Disposition pending Time: 18:49 Vital Signs Temperature 97.7 F 02/03/17 17:41 Pulse Rate 93 02/03/17 17:41 Respiratory Rate 18 02/03/17 17:41 Blood Pressure 172/108 02/03/17 17:41 O2 Sat by Pulse Oximetry 95 02/03/17 17:41 Temperature 97.7 F 02/03/17 17:41 Pulse Rate 93 02/03/17 17:41 Respiratory Rate 18 02/03/17 17:41 Blood Pressure 172/108 02/03/17 17:41 O2 Sat by Pulse Oximetry 95 02/03/17 17:41 Medical Decision Making - Medical Records Medical records reviewed: Yes I reviewed the patient's medical records. - Lab Data Lab results reviewed: Yes I reviewed the patient's lab results. Result diagrams: 02/03/17 18:05 02/03/17 18:05 Lab Results 02/03/17 02/03/17 02/03/17 Range/Units 18:05 18:05 18:05 WBC 8.4 (4.3-11.1) K/mcL RBC 5.17 H (3.82-4.97) M/mcL Hgb 14.1 (11.5-15.4) g/dL Hct 43.8 (35.3-44.9) % MCV 84.7 (83.0-100.0) fL MCH 27.3 L (28.0-33.3) pg MCHC 32.2 (31.6-35.5) g/dL RDW 14.7 H (11.5-14.5) % Plt Count 307 (140-400) K/mcL MPV 9.6 (9.4-12.4) fL Immature Gran % 0.4 (0-4) % Seg Neutrophils % 62.6 % Lymphocytes % 24.6 % Monocytes % 9.3 % Eosinophils % 2.4 % Basophils % 0.7 % Neutrophils # 5.3 (1.6-8.9) K/mcL Lymphocytes # 2.1 (0.6-4.6) K/mcL Monocytes # 0.8 (0.0-1.3) K/mcL Eosinophils # 0.2 (0.0-0.6) K/mcL Basophils # 0.1 (0.0-0.2) K/mcL PT 10.7 (9.4-12.1) Seconds INR 1.0 Sodium 138 (136-145) mEq/L Potassium 4.0 (3.5-4.5) mEq/L Chloride 102 (98-109) mEq/L Carbon Dioxide 26 (19-29) mEq/L BUN 8 (7-20) mg/dL Creatinine 0.64 (0.57-1.11) mg/dL Est GFR ( Amer) > 60 (> 60) Est GFR (Non-Af Amer) > 60 (> 60) BUN/Creatinine Ratio 13 (6-26) Glucose 95 (70-99) mg/dL Calculated Osmolality 284 (280-300) Calcium 9.7 (8.6-10.8) mg/dL Troponin I (0-0.03) ng/mL 02/03/17 Range/Units 18:05 WBC (4.3-11.1) K/mcL RBC (3.82-4.97) M/mcL Hgb (11.5-15.4) g/dL Hct (35.3-44.9) % MCV (83.0-100.0) fL MCH (28.0-33.3) pg MCHC (31.6-35.5) g/dL RDW (11.5-14.5) % Plt Count (140-400) K/mcL MPV (9.4-12.4) fL Immature Gran % (0-4) % Seg Neutrophils % % Lymphocytes % % Monocytes % % Eosinophils % % Basophils % % Neutrophils # (1.6-8.9) K/mcL Lymphocytes # (0.6-4.6) K/mcL Monocytes # (0.0-1.3) K/mcL Eosinophils # (0.0-0.6) K/mcL Basophils # (0.0-0.2) K/mcL PT (9.4-12.1) Seconds INR Sodium (136-145) mEq/L Potassium (3.5-4.5) mEq/L Chloride (98-109) mEq/L Carbon Dioxide (19-29) mEq/L BUN (7-20) mg/dL Creatinine (0.57-1.11) mg/dL Est GFR ( Amer) (> 60) Est GFR (Non-Af Amer) (> 60) BUN/Creatinine Ratio (6-26) Glucose (70-99) mg/dL Calculated Osmolality (280-300) Calcium (8.6-10.8) mg/dL Troponin I 0.00 (0-0.03) ng/mL - Radiology Data Radiology results reviewed: Yes I reviewed the patient's radiology results. - EKG Data EKG #1 EKG attestation: Yes I reviewed and interpreted this EKG. EKG results narrative: EKG : 12-lead EKG shows sinus rhythm at 91 bpm, NC interval 149 ms, QRS duration 89 ms , QT corrected at 399 ms, all intervals within normal limits. Nonspecific ST-T changes but no acute ischemic changes noted. No acute changes noted when compared to an old EKG dated 08/12/2016
[2017-02-03] MEDS ORDERED: *HR* HYDROmorphone (PF) 1 MG/ML SYRINGE IVP ONE (18:45)
[2017-02-03] MEDS ORDERED: Ondansetron 4 MG/2 ML VIAL IVP ONE (18:45)
[2017-02-03] MEDS ORDERED: 0.9 % Sodium Chloride 1,000 ML IVC ONE (20:04)
--- NOTE | 2017-02-03 20:21 | Emergency Department Note ---
Disposition Clinical Impression: ACS (acute coronary syndrome), Tobacco use Disposition: Admitted As Inpatient Condition: Fair Time of Disposition: 21:45 Chest Pain HPI - General Chief Complaint: ED Chest Pain Stated Complaint: CP/LEFTY Time Seen by Provider: 02/03/17 17:44 Source: patient Limitations: no limitations - History of Present Illness HPI Narrative: Patient seen and examined by the primary provider. Please see their documentation for complete history and physical. Severity scale (1-10): 8 - Related Data Home Medications Medication Instructions Recorded Confirmed Albuterol Neb [Proventil Neb] 2.5 mg IH TID PRN 06/12/15 02/03/17 Isosorbide MONOnitrate (24 HR) 30 mg PO DAILY 06/12/15 02/03/17 [Imdur] Metoprolol [Lopressor] 25 mg PO BID 06/12/15 02/03/17 Budesonide/Formoterol 160/4.5 2 puff IH BID 06/14/16 02/03/17 [Symbicort 160/4.5] Aspirin 325 mg PO DAILY 02/03/17 02/03/17 Ipratropium/Albuterol Sulfate 2 puff IH Q6H PRN 02/03/17 02/03/17 [Combivent Respimat Inhal [place]] Allergies Allergy/AdvReac Type Severity Reaction Status Date / Time cephalexin [From Keflex] Allergy Hives Verified 02/03/17 17:53 codeine Allergy Chest Pain Verified 02/03/17 17:53 Penicillins Allergy Hives Verified 02/03/17 17:53 Feqtxoc-Rmx-Ewq Reductase AdvReac Muscle Pain Verified 02/03/17 17:53 Inhibitor Constitutional: Reports: weakness Eyes: Reports: as per HPI ENT ED: Reports: as per HPI Cardiovascular: Reports: chest pain, dyspnea on exertion Respiratory: Reports: as per HPI Gastrointestinal: Reports: as per HPI Genitourinary: Reports: as per HPI Musculoskeletal: Reports: as per HPI Integumentary: Reports: as per HPI Neurological: Reports: as per HPI Psychiatric: Reports: as per HPI Endocrine: Reports: as per HPI Chest Pain PMH - Past Medical History Medical history: Reports: cancer, COPD, dementia, hyperlipidemia, other Surgical history: Reports: angioplasty/stent, appendectomy, cholecystectomy, hysterectomy Psychiatric history: Reports: no psych history [employer]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 Absent: respiratory distress - Cardiovascular Cardiovascular exam: Present: regular rate, normal rhythm - Abdominal Exam Abdominal exam: Present: soft, Non-Tender - Extremities Exam Extremities exam: Present: normal inspection. Absent: pedal edema - Back Exam Back exam: Present: normal inspection - Skin Skin exam: Present: warm, dry, intact, normal color Course Course Narrative: Patient seen and examined. Patient resting comfortably in bed. Stable vital signs. Patient is complaining of atraumatic left shoulder pain with radiation to the left jaw. Patient does have history of stent placement approximately 5 years ago. On daily aspirin. Patient's also been having chronic dyspnea. Patient also been having increasing fatigue. At the time of my examination the patient's requesting Tylenol. - Reevaluation(s) Reevaluation #1: Patient seen and examined. Patient's resting comfortably. Patient states she did have surgery in the remote past of a right upper lobe lung cancer. Given the patient's complaint was dyspnea as well as chest pain. A CT with contrast would allow better look at the patient's lung exam. Patient's troponin is negative with intermittent chest pain. Time: 20:23 Reevaluation #2: Patient's resting comfortably. Denying any pain at this time. Patient will be admitted for further evaluation. Plan of care discussed. Time: 21:44 Vital Signs Temperature 97.7 F 02/03/17 17:41 Pulse Rate 93 02/03/17 17:41 Respiratory Rate 18 02/03/17 17:41 Blood Pressure 172/108 02/03/17 17:41 O2 Sat by Pulse Oximetry 95 02/03/17 17:41 Temperature 97.7 F 02/03/17 17:41 Pulse Rate 86 02/03/17 20:34 Respiratory Rate 16 02/03/17 21:42 Blood Pressure 152/89 02/03/17 21:42 O2 Sat by Pulse Oximetry 94 02/03/17 20:34 Oxygen Delivery Oxygen Delivery Room Air Chest Pain - MDM Narrative Medical decision making narrative: 66-year-old female history of tobacco use, CAD with stent placed in the past was for evaluation of left shoulder pain and jaw pain. Patient states that she has had intermittent symptoms over the past couple days. Woke her from sleep. The patient's on daily aspirin. Patient also has a history of remote lobectomy related to lung cancer. Patient reports some dyspnea but has a history of COPD. Patient has no formal recent cardiac evaluation. Patient's labs and workup initiated by the primary provider. Patient had a negative troponin with no significant acute abnormalities in labs. Given the patient's chest x-ray a CT with contrast to obtain a better imaging rule out any pulmonary embolism. Patient will be admitted to the hospital service for further evaluation and management regarding her cardiopulmonary status. Patient's heart scores of 5. - Lab Data Lab results reviewed: Yes I reviewed the patient's lab results. Result diagrams: 02/03/17 18:05 02/03/17 18:05 Lab Results 02/03/17 02/03/17 02/03/17 Range/Units 18:05 18:05 18:05 WBC 8.4 (4.3-11.1) K/mcL RBC 5.17 H (3.82-4.97) M/mcL Hgb 14.1 (11.5-15.4) g/dL Hct 43.8 (35.3-44.9) % MCV 84.7 (83.0-100.0) fL MCH 27.3 L (28.0-33.3) pg MCHC 32.2 (31.6-35.5) g/dL RDW 14.7 H (11.5-14.5) % Plt Count 307 (140-400) K/mcL MPV 9.6 (9.4-12.4) fL Immature Gran % 0.4 (0-4) % Seg Neutrophils % 62.6 % Lymphocytes % 24.6 % Monocytes % 9.3 % Eosinophils % 2.4 % Basophils % 0.7 % Neutrophils # 5.3 (1.6-8.9) K/mcL Lymphocytes # 2.1 (0.6-4.6) K/mcL Monocytes # 0.8 (0.0-1.3) K/mcL Eosinophils # 0.2 (0.0-0.6) K/mcL Basophils # 0.1 (0.0-0.2) K/mcL PT 10.7 (9.4-12.1) Seconds INR 1.0 Sodium 138 (136-145) mEq/L Potassium 4.0 (3.5-4.5) mEq/L Chloride 102 (98-109) mEq/L Carbon Dioxide 26 (19-29) mEq/L BUN 8 (7-20) mg/dL Creatinine 0.64 (0.57-1.11) mg/dL Est GFR ( Amer) > 60 (> 60) Est GFR (Non-Af Amer) > 60 (> 60) BUN/Creatinine Ratio 13 (6-26) Glucose 95 (70-99) mg/dL Calculated Osmolality 284 (280-300) Calcium 9.7 (8.6-10.8) mg/dL Troponin I (0-0.03) ng/mL 02/03/17 Range/Units 18:05 WBC (4.3-11.1) K/mcL RBC (3.82-4.97) M/mcL Hgb (11.5-15.4) g/dL Hct (35.3-44.9) % MCV (83.0-100.0) fL MCH (28.0-33.3) pg MCHC (31.6-35.5) g/dL RDW (11.5-14.5) % Plt Count (140-400) K/mcL MPV (9.4-12.4) fL Immature Gran % (0-4) % Seg Neutrophils % % Lymphocytes % % Monocytes % % Eosinophils % % Basophils % % Neutrophils # (1.6-8.9) K/mcL Lymphocytes # (0.6-4.6) K/mcL Monocytes # (0.0-1.3) K/mcL Eosinophils # (0.0-0.6) K/mcL Basophils # (0.0-0.2) K/mcL PT (9.4-12.1) Seconds INR Sodium (136-145) mEq/L Potassium (3.5-4.5) mEq/L Chloride (98-109) mEq/L Carbon Dioxide (19-29) mEq/L BUN (7-20) mg/dL Creatinine (0.57-1.11) mg/dL Est GFR ( Amer) (> 60) Est GFR (Non-Af Amer) (> 60) BUN/Creatinine Ratio (6-26) Glucose (70-99) mg/dL Calculated Osmolality (280-300) Calcium (8.6-10.8) mg/dL Troponin I 0.00 (0-0.03) ng/mL - Radiology Data Radiology results reviewed: Yes I reviewed the patient's radiology results. Chest X-Ray 02/03/17 17:44 IMPRESSION: 1. Postsurgical changes from prior right upper lobectomy with associated volume loss and scarring. 2. Emphysema. 3. Minimal linear opacities at bilateral lung bases are felt to represent atelectasis rather than consolidation. D/ / 02/03/2017 18:32:42 Abdon Boothe MD / pa Interpreting Provider: Abdon Boothe MD Chest X-Ray 02/03/17 17:44 IMPRESSION: 1. Postsurgical changes from prior right upper lobectomy with associated volume loss and scarring. 2. Emphysema. 3. Minimal linear opacities at bilateral lung bases are felt to represent atelectasis rather than consolidation. D/ / 02/03/2017 18:32:42 Abdon Boothe MD / pa Interpreting Provider: Abdon Boothe MD Chest CTA 02/03/17 20:02 IMPRESSION: No evidence of pulmonary embolism or acute pulmonary abnormality. D/ / Juan Dai MD / Juan Dai MD Interpreting Provider: Juan Dai MD - EKG Data EKG attestation: Yes I reviewed and interpreted this EKG. EKG shows normal: sinus rhythm Rate: normal Rhythm: NSR [place]/QRS: normal Q waves: v1 T wave inversions noted in: v1 Interpretation: no acute changes Heart Score - Score History: Moderately Suspicious EKG: Normal Age: Greater than 65 Risk Factors: Equal/Greater than 3 risk factor or history of atherosclerotic disease Troponin: Less than normal limit HEART Score Total: 5 S.B.A.Shashank - Jorge Situation: Demographics Background: Presenting Complaint Assessment: Vital Signs, Course and respsone to treatment, Patient/Family Expectation Recommendation: Barrier(s) to disposition, Recommendation based on pending studies, treatments, or consults [email or web address] Report Given to: Dr. Jose Rafael Patel Repor Time: 21:15
[2017-02-03] MEDS ORDERED: NON-FORMULARY MEDICATION 1 EACH EACH (Ipratropium/Albuterol Sulfate [Combivent Respimat In IH PRN (22:33)
[2017-02-03] MEDS ORDERED: Albuterol 2.5 MG/3 ML NEBULIZER IH PRN (22:33)
--- NOTE | 2017-02-03 22:38 | Internal Med History&Physical ---
Date of Encounter: 02/03/17 Time of Encounter: 22:34 Assessment and Plan (1) COPD (chronic obstructive pulmonary disease) Current visit: Yes Status: Acute Some increased wheezing and shortness of breath paredep store baseline will keep the patient on nfauqx-xta-[id number] nebulizer treatment. I do not think she needs any antibiotics. Qualifiers: Qualified Code(s): J44.9 - Chronic obstructive pulmonary disease, unspecified (2) Chest pain Current visit: Yes Status: Acute Non-anginal chest pain. Electrocardiogram shows no ST-segment shifts. Initial troponin normal. Check 2 more sets of cardiac markers. Continue aspirin and beta blockers. She is not on Plavix as she had history of brain aneurysm Qualifiers: Qualified Code(s): R07.9 - Chest pain, unspecified Internal Medicine - H&P: HPI Chief complaint: chest pain History of present illness: Ms. Reyes is a 66 year old female with history of coronary artery disease status post PCI 5 years ago on aspirin, COPD not on home oxygen, history of lung cancer status post right upper lobectomy, history of brain aneurysm, still smokes one pack of cigarettes daily presents to the emergency room today with main complain of chest pain. Since yesterday night patient started experiencing left upper chest pain radiating to shoulder and back. Pain has been more or less constant that gets worse at times. No relation of pain with exertion. No relation to movement of arm and no worsening with inspiration. She had received sublingual nitroglycerin in the emergency room without improvement of her pain. Pain is different from her prior pains that prompted cardiac intervention. She has some more shortness of breath rustler baseline and wheezing but denies any increased sputum production. Past Med Surg Social Fam HX - Past Medical History Medical history: cancer, COPD, dementia, hyperlipidemia, other Psychiatric history: no psych history - Past Surgical History Surgical History: angioplasty/stent, appendectomy, cholecystectomy, hysterectomy , other - Social History Smoking Status: Current every day smoker Packs per day: 1 Smokeless Tobacco Status: No Alcohol use: none Drug use: none - Family History Mother Adopted: No Living Status: Hx Family Cardiac Disorders: No Hx Family Respiratory Disorders: Yes (COPD) Hx Family Cancer: Yes (Lung CA) Hx Family GI Disorders: No Hx Family Endocrine Disorder: No Hx Family Neuromuscular Disorders: No Hx Family Neurologic Disorders: No Hx Family HEENT Disorders: No Hx Family Autoimmune Disorders: No Internal Medicine - H&P: Meds Albuterol Neb [Proventil Neb] 2.5 mg IH TID PRN 06/12/15 [History] Isosorbide MONOnitrate (24 HR) [Imdur] 30 mg PO DAILY 06/12/15 [History] Metoprolol [Lopressor] 25 mg PO BID 06/12/15 [History] Budesonide/Formoterol 160/4.5 [Symbicort 160/4.5] 2 puff IH BID 06/14/16 [ History] Aspirin 325 mg PO DAILY 02/03/17 [History] Ipratropium/Albuterol Sulfate [Combivent Respimat Inhal [place]] 2 puff IH Q6H PRN 02/03/17 [History] 3 Allergy/AdvReac Type Severity Reaction Status Date / Time cephalexin [From Keflex] Allergy Hives Verified 02/03/17 17:53 codeine Allergy Chest Pain Verified 02/03/17 17:53 Penicillins Allergy Hives Verified 02/03/17 17:53 Eafdpcw-Tuq-Hfi Reductase AdvReac Muscle Pain Verified 02/03/17 17:53 Inhibitor All Systems PM: A 10-system review of systems was performed and is negative for pertinent findings except as documented above in the HPI. Review of systems: 10 point review of systems is negative except for HPI - Constitutional Vitals: Temp Pulse Resp BP Pulse Ox 97.5 F L 87 16 149/89 95 02/03/17 22:04 02/03/17 22:04 02/03/17 22:04 02/03/17 22:04 02/03/17 22:04 Exam: Gen.: patient is alert oriented times 3 cardiac: normal S1 S2 no additional sounds or murmurs chest: diminished air entry, expiratory wheezing abdomen soft nontender nondistended normal bowel sounds lower extremity no swelling. Neuro: no new focal deficits Internal Med - H&P Results - Labs CBC & Chem 7: 02/03/17 18:05 02/03/17 18:05
[2017-02-03] MEDS: Budesonide/Formoterol 160/4.5 MDI IH SCH (22:50)
[2017-02-03] MEDS ORDERED: Ipratropium 1 PUFF INHALER IH PRN (23:00)
[2017-02-03] MEDS ORDERED: Ipratropium 1 PUFF INHALER IH SCH (23:00)
[2017-02-03] MEDS ORDERED: Acetaminophen 325 MG TABLET PO PRN (23:46)
[2017-02-04 07:03] LABS: Basophils # 0.1 K/mcL (0.0-0.2); Basophils % 0.7 %; Eosinophils # 0.2 K/mcL (0.0-0.6); Eosinophils % 2.9 %; Hematocrit 43.3 % (35.3-44.9); Hemoglobin 13.3 g/dL (11.5-15.4); Immature Granulocytes % 0.3 % (0-4); Lymphocytes # 1.5 K/mcL (0.6-4.6); Lymphocytes % 20.7 %; Mean Corpuscular HGB Conc 30.7 g/dL (31.6-35.5); Mean Corpuscular Hemoglobin 26.4 pg (28.0-33.3); Mean Corpuscular Volume 85.9 fL (83.0-100.0); Mean Platelet Volume 9.7 fL (9.4-12.4); Monocytes # 0.8 K/mcL (0.0-1.3); Monocytes % 11.3 %; Neutrophils # 4.6 K/mcL (1.6-8.9); Platelet Count 302 K/mcL (140-400); Red Blood Count 5.04 M/mcL (3.82-4.97); Red Cell Distribution Width 14.8 % (11.5-14.5); Segmented Neutrophils % 64.1 %
[2017-02-04 07:05] LABS: BUN/Creatinine Ratio 10 (6-26); Blood Urea Nitrogen 6 mg/dL (7-20); Calcium 8.9 mg/dL (8.6-10.8); Carbon Dioxide 26 mEq/L (19-29); Chloride 108 mEq/L (98-109); Creatine Kinase 64 Units/L (29-168); Glucose 97 mg/dL (70-99); Magnesium 1.8 mg/dL (1.6-2.6); Osmolality,Calculated 292 (280-300); Potassium 4.2 mEq/L (3.5-4.5); Sodium 142 mEq/L (136-145); eGFR For African Americans > 60 (> 60); eGFR For Non-African Americans > 60 (> 60)
[2017-02-04] MEDS ORDERED: Albuterol 2.5 MG/3 ML NEBULIZER IH PRN (07:40)
[2017-02-04 07:46] VITALS: BP 124/74
[2017-02-04] MEDS: Ipratropium/Albuterol Neb 3 ML IH SCH ×2 (07:57→10:41)
[2017-02-04] MEDS ORDERED: Aspirin 325 MG TABLET PO SCH (09:00)
[2017-02-04] MEDS ORDERED: Isosorbide MONOnitrate (24 HR) 30 MG TAB.ER.24H PO SCH (09:00)
[2017-02-04] MEDS ORDERED: Budesonide/Formoterol 160/4.5 MDI IH SCH (10:00)
[2017-02-04] MEDS: Budesonide/Formoterol 160/4.5 MDI IH SCH (10:42)
--- NOTE | 2017-02-04 11:18 | Discharge Summary ---
Date of Encounter: 02/04/17 Time of Encounter: 09:30 - Discharge Diagnosis (1) Chest pain Priority: Primary Status: Ruled-out Comments: Chest x-ray negative. Troponins negative 3. CTA negative. ACS ruled out. Qualifiers: Chest pain type: unspecified Qualified Code(s): R07.9 - Chest pain, unspecified (2) ACS (acute coronary syndrome) Priority: Primary Status: Ruled-out (3) Trapezius muscle spasm Priority: Primary Status: Acute Comments: On examination, patient not on her upper left shoulder consistent with trapezius muscle spasm. Abated with Flexeril and warm compresses. ACS ruled out. (4) CAD (coronary artery disease) Priority: Secondary Status: Chronic (5) COPD (chronic obstructive pulmonary disease) Priority: Secondary Status: Chronic Comments: No acute exacerbation. Patient denies shortness of breath of her norm. Follow- up outpatient (6) Current smoker Priority: Secondary Status: Chronic Comments: Declined smoking cessation counseling. (7) HTN (hypertension) Priority: Secondary Status: Chronic Comments: Controlled, followed by outpatient (8) DVT prophylaxis Priority: Primary Status: Acute Comments: Observation patient. Up ad luis fernando. - Discharge Medications Prescriptions: Cyclobenzaprine [Flexeril] 10 mg PO HS PRN #10 tablet PRN Reason: Muscle Spasm Home Medications: Albuterol Neb [Proventil Neb] 2.5 mg IH TID PRN 06/12/15 [History] Isosorbide MONOnitrate (24 HR) [Imdur] 30 mg PO DAILY 06/12/15 [History] Metoprolol [Lopressor] 25 mg PO BID 06/12/15 [History] Budesonide/Formoterol 160/4.5 [Symbicort 160/4.5] 2 puff IH BID 06/14/16 [ History] Aspirin 325 mg PO DAILY 02/03/17 [History] Ipratropium/Albuterol Sulfate [Combivent Respimat Inhal [place]] 2 puff IH Q6H PRN 02/03/17 [History] Cyclobenzaprine [Flexeril] 10 mg PO HS PRN #10 tablet 02/04/17 [Rx] Allergies/Adverse Reactions: 3 Allergy/AdvReac Type Severity Reaction Status Date / Time cephalexin [From Keflex] Allergy Hives Verified 02/03/17 17:53 codeine Allergy Chest Pain Verified 02/03/17 17:53 Penicillins Allergy Hives Verified 02/03/17 17:53 Ugfvdnz-Xlk-Wfh Reductase AdvReac Muscle Pain Verified 02/03/17 17:53 Inhibitor Date of admission: 02/03/17 21:20 Primary care physician: Eagle Olivares MD Discharging clinician: Rea Landry Anticipated date of discharge: 02/04/17 - Patient Status Disposition: Home, Self-Care Condition: Fair Functional capacity at discharge: independent ambulation Overall status at discharge: patient is back to baseline - Discharge Instructions Follow Up With: Eagle Olivares MD [Primary Care Provider] - 02/10/17 11:00 am Additional Instructions: Follow-up with primary care provider as scheduled - Diet and Activity Activity: increase activity as tolerated Diet: low fat, low cholesterol, low salt diet Hospital course: Ms. Reyes is a 66 year old female with past medical history of CAD status post stent, COPD, history of lung cancer status post right upper lobe lobectomy, history of brain aneurysm, continued tobacco abuse. Patient presented to the emergency department chiefly of chest pains. Patient sitting on the night prior to presentation she started to express left upper chest pain radiating to her shoulder and her back. Patient stating the pain was more or less constant but had gotten worse at times. Not related to exertion. Patient received sublingual nitroglycerin in the emergency department without improvement in her pain. Patient stating pain is different from her prior pain that prompted cardiac intervention. Workup in the emergency department unremarkable. Chest x -ray negative for acute processes. CTA ruled out a PE. Patient was admitted to the hospitalist service for further evaluation and management. Troponins negative 3. On examination, patient with a palpable knot to her superior trapezius muscle on the left side consistent with muscle spasm. Pain was abated with heat, stretching, and muscle relaxer. ACS ruled out. She denies shortness of breath above her norm on day of discharge. She was discharged home in stable condition with close outpatient follow-up recommended. ITS Impressions Chest X-Ray 02/03/17 17:44 IMPRESSION: 1. Postsurgical changes from prior right upper lobectomy with associated volume loss and scarring. 2. Emphysema. 3. Minimal linear opacities at bilateral lung bases are felt to represent atelectasis rather than consolidation. D/ / 02/03/2017 18:32:42 Abdon Boothe MD / pa Interpreting Provider: Abdon Boothe MD Chest CTA 02/03/17 20:02 IMPRESSION: No evidence of pulmonary embolism or acute pulmonary abnormality. D/ / Juan Dai MD / Juan Dai MD Interpreting Provider: Juan Dai MD - Time Spent with Patient Total time spent providing and/or coordinating discharge services: - Constitutional Vitals: Temp Pulse Resp BP Pulse Ox 98.0 F 86 18 124/74 92 02/04/17 07:46 02/04/17 07:46 02/04/17 10:41 02/04/17 07:46 02/04/17 10:41 General appearance: Present: A&O X 3, pleasant, no acute distress, answers questions appropriately - Head Head exam: Present: atraumatic, normocephalic - Eye Eye exam: Present: PERRL, conjuntiva pink, sclera anicteric Pupils: Present: PERRL - Neck Neck exam general surgery: Present: tenderness, supple, trachea midline. Absent : lymphadenopathy - Expanded Neck Exam Neck exam: Present: tenderness (muscle spasm left side) - Respiratory Respiratory exam: Present: decreased breath sounds. Absent: accessory muscle use, rales, respiratory distress, rhonchi, wheezes - Cardiovascular Cardiovascular exam: Present: RRR, +S1, +S2. Absent: diastolic murmur, gallop, rubs, systolic murmur - GI/Abdominal GI/Abdominal exam: Present: normal bowel sounds, soft, no peritoneal signs. Absent: distended, tenderness - Extremities Exam Extremities exam: Present: warm, radial pulses palpable and symmetrical. Absent : calf tenderness, cyanotic, pedal edema - Expanded Upper Extremities Exam Shoulder exam: Present: tenderness. Absent: normal inspection (knot to trapezius) Vascular exam: Present: normal capillary refill. Absent: vascular compromise - Neurological Exam Neurological exam: Present: alert, CN II-XII intact, normal gait, oriented X3, no focal deficits, strengths equal and symetr throughout. Absent: pronater drift, facial droop, speech deficit - Skin Skin exam: Present: dry, intact, normal color, warm
--- NOTE | 2017-02-04 15:56 | Electrocardiograph Report ---
[address] [address] Test Date: 2017-02-03 Pat Name: Farideh Reyes Department: 102 Room: 3B23 Gender: F [employer]er: Msc : 1950 Requested By: Erik Aquino Order Number: [id number] Reading MD: Tammy Abbott Measurements Intervals [place] Rate: 91 P: 63 NM: 149 QRS: 87 QRSD: 89 T: 48 QT: 350 QTc: 399 Interpretive Statements SINUS RHYTHM Electronically Signed On 02-04-2017 15:55:06 EDT by Tammy Abbott
[2017-02-06 21:10] LABS: CK-MB (CK isoenzymes) 0 % (0-4); CK-MM (CK-isoenzymes) 100 % (96-100)
[2017-02-06 21:10] LABS: CK-BB (CK isoenzymes) 0 % (0-0); CK-MB (CK isoenzymes) 0 % (0-4); CK-MM (CK-isoenzymes) 100 % (96-100)
[2017-02-07 08:10] LABS: CK Total (Ck Isoenzymes) 64 U/L (20-180); CK-BB (CK isoenzymes) 0 % (0-0)
[2017-02-07 08:11] LABS: CK Total (Ck Isoenzymes) 74 U/L (20-180)
== END 2017-02-04 12:35 | disposition home or self-care (01) ==
LOC: 3BNU 17:39 → EMEROO 17:39 → 3BNU 21:47
PROVIDERS: ADMIT Hospitalist; ATTEND Nurse Practitioner Family

== ENCOUNTER 2017-03-27 08:57 | Inpatient (IN) ==
[2017-03-27] MEDS ORDERED: methylPREDNISolone 125 MG/2 ML VIAL IVP ONE (09:07)
[2017-03-27] MEDS ORDERED: Ipratropium/Albuterol Neb 3 ML IH ONE ×2 (09:07→20:30)
--- NOTE | 2017-03-27 09:11 | Emergency Department Note ---
START Narrative - START START: I examined this patient and my medical decision-making was reviewed with the NEUROLOGICAL PHYSIOTHERAPIST/PA/Advanced Practice Nurse/Resident Physician. I agree with the documented findings, disposition and treatment plan as described except to the extent set forth below. ED attending: Patient's emergency medicine resident Dr. Zarate. Please see copy of this note for H&P evaluation and management and ED disposition. We both had independent xcec-bo-trvc time in contact with this patient. Briefly: A 66-year-old female smoker COPD her history of lung cancer with right lower lobectomy which was performed years ago presents with increasing shortness of breath cough and fatigue. Patient just finished a course of Levaquin. She has bilateral expiratory wheezes satting 94 And tachycardic. Patient and ED workup including x-ray triple DuoNeb IV steroids screening labs. Admission anticipated. Providing 45 minutes of critical care services for this patient.
--- NOTE | 2017-03-27 09:13 | Emergency Department Note ---
Disposition Clinical Impression: COPD exacerbation Pneumonia Qualifiers: Pneumonia type: due to unspecified organism Laterality: left Lung location: lower lobe of lung Qualified Code(s): J18.1 - Lobar pneumonia, unspecified organism Disposition: Admitted As Inpatient Condition: Good Time of Disposition: 11:43 General Adult HPI - General Stated complaint: wheezing Time Seen by Provider: 03/27/17 09:00 Source: patient Mode of arrival: ambulatory Limitations: no limitations Nursing Notes Reviewed: Yes Vital Signs Reviewed: Yes - History of Present Illness HPI Narrative: 66-year-old female presenting to the emergency department complaining of wheezing for the past 2 weeks. Patient states she got her pneumonia shot 2 weeks ago and since then has been having wheezing. Patient has significant past medical history of previous lung cancer with a right lower lobe removal. Patient also has COPD and is seen by a submarine operator Dr. Ortiz. Patient denies fever or chest pain. Patient states the wheezing has been constant and has not gotten worse. Denies any increase in sputum production. She does state she was on a week worth of Levaquin which she finished yesterday. She has been using her albuterol inhalers and nebulizer treatments at home with minimal relief. Pain Scale: 0 - Related Data Home Medications Medication Instructions Recorded Confirmed Albuterol Neb [Proventil Neb] 2.5 mg IH TID PRN 06/12/15 03/27/17 Isosorbide MONOnitrate (24 HR) 30 mg PO DAILY 06/12/15 03/27/17 [Imdur] Metoprolol [Lopressor] 25 mg PO BID 06/12/15 03/27/17 Budesonide/Formoterol 160/4.5 2 puff IH BID 06/14/16 03/27/17 [Symbicort 160/4.5] Aspirin 325 mg PO DAILY 02/03/17 03/27/17 Ipratropium/Albuterol Sulfate 2 puff IH Q6H PRN 02/03/17 03/27/17 [Combivent Respimat Inhal [place]] Ipratropium/Albuterol Sulfate 1 puff IH QID 03/27/17 03/27/17 [Combivent Respimat Inhal [place]] levoFLOXacin [Levofloxacin] 500 mg PO DAILY 03/27/17 03/27/17 predniSONE [PredniSONE] 20 mg PO AD 03/27/17 03/27/17 Allergies Allergy/AdvReac Type Severity Reaction Status Date / Time cephalexin [From Keflex] Allergy Hives Verified 02/03/17 17:53 chlorpheniramine Allergy Hives Verified 03/27/17 09:11 [From Ornade] codeine Allergy Chest Pain Verified 02/03/17 17:53 Penicillins Allergy Hives Verified 02/03/17 17:53 phenylpropanolamine Allergy Hives Verified 03/27/17 09:11 [From Ornade] Aturpou-Ufl-Gyx Reductase AdvReac Muscle Pain Verified 02/03/17 17:53 Inhibitor All systems ED: reviewed and negative except as stated. Constitutional: Denies: fever, chills, weakness Eyes: Reports: as per HPI ENT ED: Reports: as per HPI Cardiovascular: Denies: chest pain, palpitations Respiratory: Reports: cough, dyspnea, wheezes. Denies: hemoptysis, stridor Gastrointestinal: Denies: abdominal pain, nausea, vomiting Genitourinary: Reports: as per HPI Musculoskeletal: Reports: as per HPI Integumentary: Reports: as per HPI Neurological: Denies: weakness, numbness, paresthesias Psychiatric: Reports: as per HPI Endocrine: Reports: as per HPI Hematological/Lymphatic: Reports: as per HPI Allergic/Immunologic: Reports: as per HPI Past Medical History - Past Medical History Attestation: Yes The following information was validated with the patient. Medical history: Reports: cancer, COPD, hyperlipidemia, other Surgical history: Reports: angioplasty/stent, appendectomy, cholecystectomy, hysterectomy, other Psychiatric history: Reports: no psych history CATTLE DEHORNER history: Reports: no CATTLE DEHORNER history - Social History Smoking Status: Current every day smoker Smokeless Tobacco Status: No Alcohol use: Reports: none Drug use: Reports: none Physical Exam - General Limitations: no limitations General appearance: alert, in no apparent distress - Head Head exam: atraumatic, normocephalic, normal inspection - Eye Eye exam: Present: normal appearance. Absent: scleral icterus, conjunctival injection - ENT ENT exam: normal oropharynx, mucous membranes moist - Chest Chest inspection: Present: normal inspection, symmetric chest wall rise. Absent : tenderness, rash - Respiratory Respiratory exam: Present: other (Diffuse wheezing noted anteriorly and posterior bilateral lung carias). Absent: respiratory distress, stridor - Cardiovascular Cardiovascular exam: Present: regular rate, normal rhythm, normal heart sounds - Abdominal Exam Abdominal exam: Present: soft, Non-Tender. Absent: distention, guarding, rebound - Extremities Exam Extremities exam: Present: normal inspection, full ROM - Neurological Exam Neurological exam: Present: alert, oriented X3 - Psychiatric Psychiatric exam: Present: normal affect, normal mood - Skin Skin exam: Present: warm, intact Course Course Narrative: 66-year-old female presenting to the emergency department if she COPD exacerbation patient has diffuse wheezing. Her oxygen saturation is 93% in the room and this is her baseline. She does not use oxygen at home and she is on no oxygen here. We will provide her with doing that, however, EKG, chest x- ray. Disposition likely admission for COPD exacerbation. We will also provide her with steroids. Final disposition pending lab and imaging results. Patient alert and oriented 3 in the room with stable vital signs at this time. - Reevaluation(s) Reevaluation #1: Chest x-ray is resulted and shows possible pneumonia. We will start the patient on ceftriaxone at this time and admit her for COPD exacerbation and pneumonia. Patient's N oriented 3 in the room with stable vital signs. Patient agrees with this plan. I spoke with hospitalist Gomez Bustamante who accepts the patient at this time. Time: 11:43 Vital Signs Temperature 97.7 F 03/27/17 09:04 Pulse Rate 94 03/27/17 09:04 Respiratory Rate 20 03/27/17 09:04 Blood Pressure 162/101 03/27/17 09:04 O2 Sat by Pulse Oximetry 94 03/27/17 09:04 Temperature 97.7 F 03/27/17 09:12 Pulse Rate 85 03/27/17 10:34 Respiratory Rate 18 03/27/17 10:34 Blood Pressure 140/73 03/27/17 10:34 O2 Sat by Pulse Oximetry 93 03/27/17 10:34 Oxygen Delivery Oxygen Delivery Room Air Medical Decision Making - Lab Data Result diagrams: 03/27/17 09:23 03/27/17 09:23 Lab Results 03/27/17 03/27/17 03/27/17 Range/Units 09:23 09:23 09:23 WBC 8.1 (4.3-11.1) K/mcL RBC 5.56 H (3.82-4.97) M/mcL Hgb 15.1 (11.5-15.4) g/dL Hct 47.7 H (35.3-44.9) % MCV 85.8 (83.0-100.0) fL MCH 27.2 L (28.0-33.3) pg MCHC 31.7 (31.6-35.5) g/dL RDW 15.4 H (11.5-14.5) % Plt Count 243 (140-400) K/mcL MPV 10.2 (9.4-12.4) fL Immature Gran % 1.6 (0-4) % Seg Neutrophils % 62.9 % Lymphocytes % 21.8 % Monocytes % 8.1 % Eosinophils % 4.6 % Basophils % 1.0 % Neutrophils # 5.1 (1.6-8.9) K/mcL Lymphocytes # 1.8 (0.6-4.6) K/mcL Monocytes # 0.7 (0.0-1.3) K/mcL Eosinophils # 0.4 (0.0-0.6) K/mcL Basophils # 0.1 (0.0-0.2) K/mcL Sodium 140 (136-145) mEq/L Potassium 3.9 (3.5-4.5) mEq/L Chloride 104 (98-109) mEq/L Carbon Dioxide 28 (19-29) mEq/L BUN 9 (7-20) mg/dL Creatinine 0.72 (0.57-1.11) mg/dL Est GFR ( Amer) > 60 (> 60) Est GFR (Non-Af Amer) > 60 (> 60) BUN/Creatinine Ratio 13 (6-26) Glucose 92 (70-99) mg/dL Calculated Osmolality 288 (280-300) Calcium 9.0 (8.6-10.8) mg/dL Troponin I 0.00 (0-0.03) ng/mL - EKG Data EKG #1 EKG attestation: Yes I reviewed and interpreted this EKG. EKG results narrative: Sinus rhythm. 90 bpm. Normal axis. IA interval 137, QRS 94, QTC 391. No signs of ST segment elevation or ischemia. When compared to previous EKG completed on 02/03/2017 no significant changes noted.
[2017-03-27 09:37] LABS: Basophils # 0.1 K/mcL (0.0-0.2); Eosinophils # 0.4 K/mcL (0.0-0.6); Eosinophils % 4.6 %; Hematocrit 47.7 % (35.3-44.9); Hemoglobin 15.1 g/dL (11.5-15.4); Immature Granulocytes % 1.6 % (0-4); Lymphocytes # 1.8 K/mcL (0.6-4.6); Lymphocytes % 21.8 %; Mean Corpuscular HGB Conc 31.7 g/dL (31.6-35.5); Mean Corpuscular Hemoglobin 27.2 pg (28.0-33.3); Mean Corpuscular Volume 85.8 fL (83.0-100.0); Mean Platelet Volume 10.2 fL (9.4-12.4); Monocytes # 0.7 K/mcL (0.0-1.3); Monocytes % 8.1 %; Neutrophils # 5.1 K/mcL (1.6-8.9); Platelet Count 243 K/mcL (140-400); Red Blood Count 5.56 M/mcL (3.82-4.97); Red Cell Distribution Width 15.4 % (11.5-14.5); Segmented Neutrophils % 62.9 %
[2017-03-27 09:54] LABS: BUN/Creatinine Ratio 13 (6-26); Blood Urea Nitrogen 9 mg/dL (7-20); Carbon Dioxide 28 mEq/L (19-29); Chloride 104 mEq/L (98-109); Glucose 92 mg/dL (70-99); Osmolality,Calculated 288 (280-300); Potassium 3.9 mEq/L (3.5-4.5); Sodium 140 mEq/L (136-145); eGFR For African Americans > 60 (> 60); eGFR For Non-African Americans > 60 (> 60)
[2017-03-27] MEDS ORDERED: cefTRIAXone 1,000 MG in Water for inj. (sterile) 10 ML IVP ONE (10:20)
[2017-03-27] MEDS ORDERED: Acetaminophen 325 MG TABLET PO PRN (13:13)
[2017-03-27] MEDS ORDERED: Naloxone 0.4 MG/ML INJ IVP PRN (13:13)
[2017-03-27] MEDS ORDERED: Ondansetron 4 MG/2 ML VIAL IVP PRN (13:13)
[2017-03-27] MEDS ORDERED: Albuterol 2.5 MG/3 ML NEBULIZER IH PRN (13:27)
[2017-03-27] MEDS ORDERED: predniSONE 20 MG TABLET PO SCH (13:30)
[2017-03-27] MEDS ORDERED: Benzonatate 100 MG CAPSULE PO PRN (13:32)
[2017-03-27] MEDS: Pantoprazole 40 MG VIAL IVP SCH (13:51)
[2017-03-27] MEDS: Ipratropium/Albuterol Neb 3 ML IH SCH ×2 (18:25→20:59)
[2017-03-27] MEDS: Azithromycin 500 MG in D5% in Water 250 ML IVPB SCH (19:39)
--- NOTE | 2017-03-27 19:57 | Internal Med History&Physical ---
<aNnantonylynnGomez - Last Filed: 03/27/17 20:36> Date of Encounter: 03/27/17 Time of Encounter: 12:00 Assessment and Plan (1) Pneumonia Current visit: Yes Status: Acute 2-View CXR today shows COPD w/mild left basilar atelectasis versus pneumonia. Supplemental O2 w/titration and SpO2 monitoring. DuoNebs Q6 scheduled. IVPB azithromycin 500 mg daily and ceftriaxone 1,000 mg daily for infection coverage. Monitor patient for signs of increasing infection, cardiac, and/or respiratory decline. Monitor f/u labs. Pt. at high risk for infection and further morbidity/respiratory compromise based on current sx, history, and risk factors. Observation. Qualifiers: Pneumonia type: due to unspecified organism Laterality: left Lung location: lower lobe of lung Qualified Code(s): J18.1 - Lobar pneumonia, unspecified organism (2) Acute exacerbation of chronic obstructive airways disease Current visit: Yes Status: Acute Acute exacerbation of COPD. Solumedrol 40 mg. Q6HR. Supplemental O2 w/titration and SpO2 monitoring. DuoNebs Q4 scheduled. (3) HLD (hyperlipidemia) Current visit: Yes Status: Chronic Hx of chronic HLD. Pt. reports allergy to statin drugs (pain in bilateral LEs). Lipid panel in a.m. labs. Qualifiers: Hyperlipidemia type: pure hypercholesterolemia Qualified Code(s): E78.00 - Pure hypercholesterolemia, unspecified; E78.0 - Pure hypercholesterolemia (4) HTN (hypertension) Current visit: Yes Status: Chronic Hx of chronic HTN. Monitor pt. and VS. Continue pts. Imdur and lopressor. Qualifiers: Hypertension type: essential hypertension Qualified Code(s): I10 - Essential (primary) hypertension (5) Cancer of lower lobe of right lung Current visit: Yes Status: Resolved Hx of cancer of the right lung w/removal of right lower lobe. Resolved. (6) DVT prophylaxis Current visit: Yes Status: Acute Heparin 5,000 units SQ Q8 for DVT prophylaxis. Internal Medicine - H&P: HPI Chief complaint: SOB/Dyspnea Admitted From: Emergency Dept Plans for Post Hospital Care: Home History of present illness: Ms. Reyes is a 66 year old female with medical history of cervical cancer in 1974 with total hysterectomy and right lung cancer with removal of RLL, COPD, HTN, and HLD presents from the ED with chief complaint of wheezing for the past two weeks that has become progressively worse. Patient reports SOB and cough w/ o sputum production. Reports finishing a week of levaquin yesterday. States her inhalers and nebulizer txs have not helped. Patient denies recent illness, fever , chills, nausea, vomiting, headache, changes in vision, unusual bleeding, numbness, tingling, chest pain, palpitations, dizziness, lightheadedness, pre- syncope, or syncope. Past Med Surg Social Fam HX - Past Medical History Source: patient, old records reviewed Medical history: cancer, COPD, hyperlipidemia, hypertension, other Psychiatric history: no psych history - Past Surgical History Surgical History: angioplasty/stent, appendectomy, cholecystectomy, hysterectomy , other - Social History Smoking Status: Current every day smoker Packs per day: 2-3 cigarettes per day Smokeless Tobacco Status: No Alcohol use: none Drug use: none Current living situation: Home, With Family Activity Level: Independent ambulation Recent Out of Country Travel Within the Last 8 Weeks: No Exposure or Possible Exposure to Illness During Travel: No - Family History Mother Adopted: No Race: Family Member Ethnicity: Non- Living Status: Age at : 56 Cause of : Lung cancer Hx Family Respiratory Disorders: Yes (COPD) Hx Family Cancer: Yes (Lymphoma) Father Race: Family Member Ethnicity: Non- Living Status: Age at : 59 Cause of : Lymphoma Hx Family Cancer: Yes (Lymphoma) Sister Race: Family Member Ethnicity: Non- Living Status: Still Living Hx Family Respiratory Disorders: Yes (COPD) Internal Medicine - H&P: Meds Albuterol Neb [Proventil Neb] 2.5 mg IH TID PRN 06/12/15 [History] Isosorbide MONOnitrate (24 HR) [Imdur] 30 mg PO DAILY 06/12/15 [History] Metoprolol [Lopressor] 25 mg PO BID 06/12/15 [History] Budesonide/Formoterol 160/4.5 [Symbicort 160/4.5] 2 puff IH BID 06/14/16 [ History] Aspirin 325 mg PO DAILY 02/03/17 [History] Ipratropium/Albuterol Sulfate [Combivent Respimat Inhal [place]] 2 puff IH Q6H PRN 02/03/17 [History] Ipratropium/Albuterol Sulfate [Combivent Respimat Inhal [place]] 1 puff IH QID [History] levoFLOXacin [Levofloxacin] 500 mg PO DAILY 03/27/17 [History] predniSONE [PredniSONE] 20 mg PO AD 03/27/17 [History] 3 Allergy/AdvReac Type Severity Reaction Status Date / Time cephalexin [From Keflex] Allergy Hives Verified 02/03/17 17:53 chlorpheniramine Allergy Hives Verified 03/27/17 09:11 [From Ornade] codeine Allergy Chest Pain Verified 02/03/17 17:53 Penicillins Allergy Hives Verified 02/03/17 17:53 phenylpropanolamine Allergy Hives Verified 03/27/17 09:11 [From Ornade] Sidqsyf-Ulp-Lql Reductase AdvReac Muscle Pain Verified 02/03/17 17:53 Inhibitor All Systems PM: A 10-system review of systems was performed and is negative for pertinent findings except as documented above in the HPI. - Constitutional Constitutional: no chills, no fever(s), no night sweats - EENT Eyes: no change in vision, no discharge, no pain, no photophobia Ears: no ear discharge, no ear pain, no tinnitus Nose, mouth and throat: no dysphagia, no nasal discharge, no neck pain, no sore throat - Breasts Breasts: as per HPI - Cardiovascular Cardiovascular ROS IM: as per HPI, dyspnea, dyspnea on exertion, no chest pain, no diaphoresis, no lightheadedness, no palpitations, no syncope - Respiratory Respiratory: as per HPI, cough, dyspnea, dyspnea on exertion - Gastrointestinal Gastrointestinal: no abdominal pain, no diarrhea, no hematemesis, no hematochezia, no melena, no nausea, no vomiting - Genitourinary Genitourinary: no change in urinary stream, no dysuria, no flank pain, no hematuria Menstruation: as per HPI, post menopausal - Musculoskeletal Musculoskeletal ROS IM: no numbness, no tingling - Integumentary Integumentary IM: no rash, no unusual bruising - Neurological Neurological ROS: no confusion, no convulsions, no focal weakness, no numbness, no tingling, no tremor(s) - Psychiatric Psychiatric: as per HPI - Endocrine Endocrine IM: as per HPI - Hematologic/Lymphatic Hematologic/Lymphatic: no easy bruising - Allergic/Immunologic Allergic/Immunologic: as per HPI - Constitutional Vitals: Temp Pulse Resp BP Pulse Ox 98.4 F 101 16 137/70 92 03/27/17 18:54 03/27/17 18:54 03/27/17 18:54 03/27/17 18:54 03/27/17 18:54 General appearance: Present: cooperative, A&O X 3, pleasant, no acute distress, answers questions appropriately - Head Head exam: Present: atraumatic, normocephalic - Eye Eye exam: Present: PERRL, conjuntiva pink, sclera anicteric Pupils: Present: PERRL - ENT ENT exam: Present: normal exam, normal external ear exam - Neck Neck exam general surgery: Present: normal inspection, supple, trachea midline. Absent: lymphadenopathy - Respiratory Respiratory exam: Present: CTAB. Absent: accessory muscle use, rales, rhonchi, wheezes - Cardiovascular Cardiovascular exam: Present: RRR, +S1, +S2. Absent: diastolic murmur, gallop, rubs, systolic murmur - GI/Abdominal GI/Abdominal exam: Present: normal bowel sounds, soft, no peritoneal signs. Absent: distended, tenderness - Rectal Rectal exam: Present: deferred - Additional comments: exam deferred. - Extremities Exam Extremities exam: Present: warm, radial pulses palpable and symmetrical. Absent : calf tenderness, cyanotic, pedal edema - Back Exam Back exam: Present: normal inspection - Neurological Exam Neurological exam: Present: CN II-XII intact, oriented X3, no focal deficits. Absent: pronater drift, facial droop, speech deficit - Psychiatric Psychiatric exam: Present: normal affect, normal mood - Skin Skin exam: Present: dry, intact Internal Med - H&P Results - Labs CBC & Chem 7: 03/27/17 09:23 03/27/17 09:23 - EKG Data EKG shows normal: sinus rhythm Rate: normal - EKG Data Prior EKG available for review: yes When compared to previous EKG: there is no significant change Interpretation IM: normal EKG EKG comments: 03/27/17 20:21 EKG dated 02/03/17 shows sinus rhythm. EKG dated 10/29/17 shows sinus rhythm and normal ECG. - Diagnostic Studies Chest x-ray Additional comments: Impressions Chest X-Ray 03/27/17 09:09 IMPRESSION: COPD with mild left basilar atelectasis versus pneumonia. D/ / Shoaib Chavez MD / Shoaib Chavez MD Interpreting Provider: Shoaib Chavez MD <Jean Chao P - Last Filed: 03/27/17 22:54> Date of Encounter: 03/27/17 Internal Medicine - H&P: HPI History of present illness: Ms. Reyes is a 66 year old female All Systems PM: A 10-system review of systems was performed and is negative for pertinent findings except as documented above in the HPI. - Constitutional Vitals: Temp Pulse Resp BP Pulse Ox 98.4 F 101 19 137/70 92 03/27/17 18:54 03/27/17 18:54 03/27/17 20:49 03/27/17 18:54 03/27/17 20:49 Internal Med - H&P Results - Labs CBC & Chem 7: 03/27/17 09:23 03/27/17 09:23 - Attending Attestation I examined this patient and my medical decision-making was reviewed with the Resident Physician. I agree with the documented findings, disposition and treatment plan as described except to the extent set forth below. 66/F Admitted with COPD exacerbation precipitating factor for exacerbation: likely PNA on ABX/Steroids/BDAs will resume home meds close observation
[2017-03-27] MEDS: Budesonide/Formoterol 160/4.5 MDI IH SCH (20:47)
[2017-03-27] MEDS: *HR* Heparin 5,000 UNIT/ML VIAL SQ SCH (21:08)
[2017-03-28] MEDS: MethylPREDNISolone 40 MG/ML VIAL IVP SCH ×4 (00:30→23:43)
[2017-03-28] MEDS: Ipratropium/Albuterol Neb 3 ML IH SCH ×4 (04:28→21:49)
[2017-03-28 05:09] LABS: Basophils % 0.3 %; Eosinophils % 0.1 %; Hematocrit 45.1 % (35.3-44.9); Hemoglobin 14.2 g/dL (11.5-15.4); Lymphocytes # 0.8 K/mcL (0.6-4.6); Lymphocytes % 9.5 %; Mean Corpuscular HGB Conc 31.5 g/dL (31.6-35.5); Mean Corpuscular Hemoglobin 26.7 pg (28.0-33.3); Mean Corpuscular Volume 84.8 fL (83.0-100.0); Mean Platelet Volume 9.6 fL (9.4-12.4); Monocytes # 0.3 K/mcL (0.0-1.3); Monocytes % 3.6 %; Neutrophils # 7.4 K/mcL (1.6-8.9); Platelet Count 275 K/mcL (140-400); Red Blood Count 5.32 M/mcL (3.82-4.97); Red Cell Distribution Width 15.3 % (11.5-14.5); Segmented Neutrophils % 85.5 %
[2017-03-28 05:18] LABS: Hemoglobin A1C 5.8 %
[2017-03-28] MEDS: *HR* Heparin 5,000 UNIT/ML VIAL SQ SCH ×4 (05:34→23:43)
[2017-03-28 05:47] LABS: Alanine Aminotransferase 10 Units/L (0-55); Albumin 3.3 g/dL (3.5-5.0); Alkaline Phosphatase 79 Units/L (38-126); Aspartate Amino Transferase 11 Units/L (5-34); BUN/Creatinine Ratio 12 (6-26); Bilirubin,Total 0.2 mg/dL (0.2-1.2); Blood Urea Nitrogen 8 mg/dL (7-20); Carbon Dioxide 24 mEq/L (19-29); Chloride 105 mEq/L (98-109); Cholesterol 267 mg/dL (< 200); Globulin 3.3 g/dL (2.4-3.5); Glucose 126 mg/dL (70-99); HDL Cholesterol 53 mg/dL (40-59); LDL Cholesterol,Calculated 193 mg/dL (0-99); Magnesium 2.1 mg/dL (1.6-2.6); Osmolality,Calculated 288 (280-300); Potassium 4.5 mEq/L (3.5-4.5); Sodium 139 mEq/L (136-145); Total Protein 6.6 g/dL (6.0-8.3); Triglycerides 103 mg/dL (< 150); eGFR For African Americans > 60 (> 60); eGFR For Non-African Americans > 60 (> 60)
[2017-03-28 08:45] LABS: Adenovirus Not Detected (Not Detect); Bordetella Pertussis Not Detected (Not Detect); Coronavirus 229E Not Detected (Not Detect); Coronavirus HKU1 Not Detected (Not Detect); Coronavirus NL63 Not Detected (Not Detect); Coronavirus OC43 Not Detected (Not Detect); Human Metapneumovirus Not Detected (Not Detect); Human Rhinovirus/Enterovirus Not Detected (Not Detect); Influenza A Subtype 2009 H1 Not Detected (Not Detect); Influenza A Untypeable Not Detected (Not Detect); Influenza B Not Detected (Not Detect); Parainfluenza Virus 1 Not Detected (Not Detect); Parainfluenza Virus 2 Not Detected (Not Detect); Parainfluenza Virus 3 Not Detected (Not Detect); Parainfluenza Virus 4 Not Detected (Not Detect); Respiratory Syncytial Virus Not Detected (Not Detect)
[2017-03-28 08:46] LABS: Chlamydophila pneumoniae Not Detected (Not Detect); Mycoplasma pneumoniae Not Detected (Not Detect)
[2017-03-28] MEDS: Isosorbide MONOnitrate (24 HR) 30 MG TAB.ER.24H PO SCH (08:55)
[2017-03-28] MEDS: Aspirin 325 MG TABLET PO SCH (08:55)
[2017-03-28] MEDS: cefTRIAXone 1,000 MG in Water for inj. (sterile) 10 ML IVP SCH (08:56)
[2017-03-28] MEDS: Pantoprazole 40 MG VIAL IVP SCH (09:02)
[2017-03-28] MEDS: Budesonide/Formoterol 160/4.5 MDI IH SCH ×2 (10:57→21:49)
[2017-03-28] MEDS ORDERED: Albuterol 2.5 MG/3 ML NEBULIZER IH PRN (11:06)
--- NOTE | 2017-03-28 11:07 | Internal Med Progress Note ---
Date of Encounter: 03/28/17 Time of Encounter: 11:07 - Assessment and plan (1) Acute and chronic respiratory failure with hypoxia Current Visit: Yes Status: Acute Assessment and plan: Has oxygen at home but does not use it. Currently hypoxic at rest. Will anticipate sending home on oxygen again. (2) Acute exacerbation of chronic obstructive airways disease Current Visit: Yes Status: Acute Assessment and plan: Currently on abx, aerosols, oxygen, steroids. Decrease steroids today. Continue other orders. Probable d/c tomorrow if stable. (3) Community acquired pneumonia Current Visit: No Status: Acute Assessment and plan: Currently on IV abx. No new issues. Anticipate d/c home on PO abx. Qualifiers: Laterality: left Lung location: lower lobe of lung Qualified Code(s): J18.1 - Lobar pneumonia, unspecified organism (4) CAD (coronary artery disease) Current Visit: No Status: Chronic Assessment and plan: Continue home medications. Qualifiers: Coronary Disease-Associated Artery/Lesion type: [place] artery [place] vs. transplanted heart: [place] heart Associated angina: without angina Qualified Code(s): I25.10 - Atherosclerotic heart disease of [place] coronary artery without angina pectoris (5) HTN (hypertension) Current Visit: Yes Status: Chronic Assessment and plan: Controlled. Continue home meds. Qualifiers: Hypertension type: essential hypertension Qualified Code(s): I10 - Essential (primary) hypertension (6) Tobacco abuse Current Visit: No Status: Chronic Assessment and plan: Cessation counselling. - Subjective Interval history: Ms. Reyes is currently admitted for acute exac COPD and pneumonia with hypoxic. She remains moderate to high risk due to potential for worsening respiratory status. Ms Reyes is getting aerosol. Her oxygen sat was 87% on RA. Still with some dyspnea. No CP. No fever or chills. No GI issues. - Constitutional Vitals: Temp Pulse Resp BP Pulse Ox 97.8 F 89 18 108/69 87 03/28/17 07:04 03/28/17 07:04 03/28/17 11:00 03/28/17 07:04 03/28/17 11:00 General appearance: Present: cooperative, A&O X 3, pleasant, answers questions appropriately - Head Head exam: Present: normocephalic - Eye Eye exam: Present: EOMI, conjuntiva pink - ENT ENT exam: Present: mucous membranes moist - Respiratory Respiratory exam: Present: rhonchi, wheezes - Cardiovascular Cardiovascular exam: Present: RRR. Absent: tachycardia - GI/Abdominal GI/Abdominal exam: Present: normal bowel sounds, soft. Absent: tenderness - Extremities Exam Extremities exam: Present: warm. Absent: tenderness - Neurological Exam Neurological exam: Present: alert, oriented X3, no focal deficits - Skin Skin exam: Present: warm. Absent: rash Internal Medicine: Result - Labs CBC & Chem 7: 03/28/17 04:34 03/28/17 04:34 Labs: Short CBC 03/28/17 Range/Units 04:34 WBC 8.7 (4.3-11.1) K/mcL Hgb 14.2 (11.5-15.4) g/dL Hct 45.1 H (35.3-44.9) % Plt Count 275 (140-400) K/mcL Neutrophils # 7.4 (1.6-8.9) K/mcL BMP 03/28/17 04:34 Sodium 139 Potassium 4.5 Chloride 105 Carbon Dioxide 24 BUN 8 Creatinine 0.67 Glucose 126 H Calcium 9.0 Liver Function 03/28/17 Range/Units 04:34 Total Bilirubin 0.2 (0.2-1.2) mg/dL AST 11 (5-34) Units/L ALT 10 (0-55) Units/L Alkaline Phosphatase 79 (38-126) Units/L Albumin 3.3 L (3.5-5.0) g/dL Consult Discharge Plan - Plan Referrals: Eagle Olivares MD [Primary Care Provider] -
[2017-03-28] MEDS: Azithromycin 500 MG in D5% in Water 250 ML IVPB SCH (17:54)
[2017-03-29] MEDS: Ipratropium/Albuterol Neb 3 ML IH SCH ×3 (03:45→15:04)
[2017-03-29 04:36] LABS: Basophils % 0.2 %; Hematocrit 41.4 % (35.3-44.9); Hemoglobin 13.2 g/dL (11.5-15.4); Immature Granulocytes % 1.2 % (0-4); Lymphocytes # 0.8 K/mcL (0.6-4.6); Lymphocytes % 7.2 %; Mean Corpuscular HGB Conc 31.9 g/dL (31.6-35.5); Mean Corpuscular Hemoglobin 27.3 pg (28.0-33.3); Mean Corpuscular Volume 85.7 fL (83.0-100.0); Monocytes # 0.4 K/mcL (0.0-1.3); Monocytes % 3.4 %; Neutrophils # 10.1 K/mcL (1.6-8.9); Platelet Count 261 K/mcL (140-400); Red Blood Count 4.83 M/mcL (3.82-4.97); Red Cell Distribution Width 15.7 % (11.5-14.5)
[2017-03-29 05:18] LABS: Alanine Aminotransferase 8 Units/L (0-55); Albumin 3.2 g/dL (3.5-5.0); Alkaline Phosphatase 66 Units/L (38-126); Aspartate Amino Transferase 11 Units/L (5-34); BUN/Creatinine Ratio 20 (6-26); Bilirubin,Total 0.2 mg/dL (0.2-1.2); Blood Urea Nitrogen 13 mg/dL (7-20); Calcium 8.8 mg/dL (8.6-10.8); Carbon Dioxide 25 mEq/L (19-29); Chloride 105 mEq/L (98-109); Globulin 3.1 g/dL (2.4-3.5); Glucose 123 mg/dL (70-99); Osmolality,Calculated 289 (280-300); Potassium 4.3 mEq/L (3.5-4.5); Sodium 139 mEq/L (136-145); Total Protein 6.3 g/dL (6.0-8.3); eGFR For African Americans > 60 (> 60); eGFR For Non-African Americans > 60 (> 60)
[2017-03-29] MEDS: Isosorbide MONOnitrate (24 HR) 30 MG TAB.ER.24H PO SCH (08:06)
[2017-03-29] MEDS: Aspirin 325 MG TABLET PO SCH (08:06)
[2017-03-29] MEDS: *HR* Heparin 5,000 UNIT/ML VIAL SQ SCH (08:06)
[2017-03-29] MEDS: Pantoprazole 40 MG VIAL IVP SCH (08:06)
[2017-03-29] MEDS: MethylPREDNISolone 40 MG/ML VIAL IVP SCH (08:06)
[2017-03-29] MEDS: cefTRIAXone 1,000 MG in Water for inj. (sterile) 10 ML IVP SCH (08:11)
[2017-03-29] MEDS: Budesonide/Formoterol 160/4.5 MDI IH SCH (10:34)
[2017-03-29 14:56] VITALS: BP 133/66
--- NOTE | 2017-03-29 15:27 | Discharge Summary ---
Date of Encounter: 03/29/17 Time of Encounter: 15:25 - Discharge Diagnosis (1) Acute exacerbation of chronic obstructive airways disease Priority: Primary Status: Acute (2) Community acquired pneumonia Priority: Primary Status: Acute Comments: mostly bacterial Qualifiers: Laterality: left Lung location: lower lobe of lung Qualified Code(s): J18.1 - Lobar pneumonia, unspecified organism (3) CAD (coronary artery disease) Priority: Secondary Status: Chronic Qualifiers: Coronary Disease-Associated Artery/Lesion type: [place] artery [place] vs. transplanted heart: [place] heart Associated angina: without angina Qualified Code(s): I25.10 - Atherosclerotic heart disease of [place] coronary artery without angina pectoris (4) HTN (hypertension) Priority: Secondary Status: Chronic Qualifiers: Hypertension type: essential hypertension Qualified Code(s): I10 - Essential (primary) hypertension (5) Current smoker Priority: Secondary Status: Chronic - Discharge Medications Prescriptions: levoFLOXacin [Levofloxacin] 500 mg PO DAILY #5 tablet predniSONE [PredniSONE] 40 mg PO AD #10 tablet Home Medications: Albuterol Neb [Proventil Neb] 2.5 mg IH TID PRN 06/12/15 [History] Isosorbide MONOnitrate (24 HR) [Imdur] 30 mg PO DAILY 06/12/15 [History] Metoprolol [Lopressor] 25 mg PO BID 06/12/15 [History] Budesonide/Formoterol 160/4.5 [Symbicort 160/4.5] 2 puff IH BID 06/14/16 [ History] Aspirin 325 mg PO DAILY 02/03/17 [History] Ipratropium/Albuterol Sulfate [Combivent Respimat Inhal [place]] 2 puff IH Q6H PRN 02/03/17 [History] Ipratropium/Albuterol Sulfate [Combivent Respimat Inhal [place]] 1 puff IH QID [History] levoFLOXacin [Levofloxacin] 500 mg PO DAILY #5 tablet 03/29/17 [Rx] predniSONE [PredniSONE] 40 mg PO AD #10 tablet 03/29/17 [Rx] Allergies/Adverse Reactions: 3 Allergy/AdvReac Type Severity Reaction Status Date / Time cephalexin [From Keflex] Allergy Hives Verified 02/03/17 17:53 chlorpheniramine Allergy Hives Verified 03/27/17 09:11 [From Ornade] codeine Allergy Chest Pain Verified 02/03/17 17:53 Penicillins Allergy Hives Verified 02/03/17 17:53 phenylpropanolamine Allergy Hives Verified 03/27/17 09:11 [From Ornade] Nwfquig-Umc-Qcm Reductase AdvReac Muscle Pain Verified 02/03/17 17:53 Inhibitor Date of admission: 03/28/17 14:58 Primary care physician: Eagle Olivares MD - Patient Status Disposition: Home, Self-Care Condition: Good Overall status at discharge: patient is back to baseline - Discharge Instructions Follow Up With: Eagle Olivares MD [Primary Care Provider] - 03/31/17 8:15 am Preston Le MD [Partnered Physician] - Forms: ED Satisfaction Letter - Diet and Activity Activity: increase activity as tolerated Diet: low salt diet Hospital course: Ms. Reyes is a 66 year old female with medical history of cervical cancer in 1974 with total hysterectomy and right lung cancer with removal of RLL, COPD, HTN, and HLD presents from the ED with chief complaint of wheezing for the past two weeks that has become progressively worse. Patient reports SOB and cough w/ o sputum production. Pt was admitted in the hospital and started her on high dose IV steroids and frequent duoneb. She was also placed on empirical abx Rocephin + Azithromycin. Her symptoms stated improving, currently she breathing comfortably on RA. I did check ambulating pulse Oxy which was 93. Will d/c her home in stable condition. She does have O2 at home, does use it as needed. Counseled to quit smoking. - Time Spent with Patient Total time spent providing and/or coordinating discharge services: - Constitutional Vitals: Temp Pulse Resp BP Pulse Ox 98.1 F 83 16 133/66 94 03/29/17 14:54 03/29/17 14:54 03/29/17 15:04 03/29/17 14:54 03/29/17 15:04 General appearance: Present: cooperative, A&O X 3, pleasant, answers questions appropriately - Head Head exam: Present: atraumatic, normal inspection - Respiratory Respiratory exam: Present: decreased breath sounds, wheezes (mild). Absent: rales, respiratory distress, rhonchi - Cardiovascular Cardiovascular exam: Present: RRR, +S1, +S2. Absent: diastolic murmur, gallop, rubs, systolic murmur - GI/Abdominal GI/Abdominal exam: Present: soft. Absent: rebound, rigid, tenderness - Extremities Exam Extremities exam: Absent: calf tenderness, pedal edema, tenderness - Back Exam Back exam: Absent: CVA tenderness (L), CVA tenderness (R) - Neurological Exam Neurological exam: Present: alert, oriented X3 - Psychiatric Psychiatric exam: Present: normal affect, normal mood
--- NOTE | 2017-03-31 09:49 | Electrocardiograph Report ---
[address] [place] [address] Test Date: 2017-03-27 Pat Name: Farideh Reyes Department: 104 Room: 3B36 Gender: F Education Rep: OPHELIA : 1950 Requested By: Lidia Zarate Order Number: [id number] Reading MD: Lisa Washington Measurements Intervals [place] Rate: 90 P: 53 MD: 137 QRS: 82 QRSD: 94 T: 45 QT: 343 QTc: 391 Interpretive Statements SINUS RHYTHM Electronically Signed On 03-31-2017 9:48:28 EDT by Lisa Washington
== END 2017-03-29 16:10 | disposition home or self-care (01) | DRG 190 ==
LOC: EMEROO 08:57 → 3BNU 08:57 → SUATTDRO 11:00 → 3BNU 12:06
PROVIDERS: ADMIT Nurse Practitioner Family; ATTEND Family Medicine

== ENCOUNTER 2018-04-11 19:54 | Inpatient (IN) ==
[2018-04-11] MEDS ORDERED: Ipratropium/Albuterol Neb 3 ML IH ONE (20:01)
[2018-04-11] MEDS ORDERED: methylPREDNISolone 125 MG/2 ML VIAL IVP ONE (20:01)
[2018-04-11] MEDS ORDERED: Azithromycin 500 MG in D5% in Water 250 ML IVPB ONE (20:08)
[2018-04-11] MEDS ORDERED: cefTRIAXone 1,000 MG in Water for inj. (sterile) 20 ML 10 ML IVP ONE (20:08)
--- NOTE | 2018-04-11 20:09 | Emergency Department Note ---
Disposition Clinical Impression: Pneumonia, COPD exacerbation Disposition: Admitted As Inpatient Condition: Fair General Adult HPI - General Stated complaint: rory Time Seen by Provider: 04/11/18 20:00 - Related Data Home Medications Medication Instructions Recorded Confirmed Albuterol Sulfate [Albuterol 2 puff IH Q4H PRN 04/11/18 04/11/18 Inhaler] Aspirin 325 mg PO DAILY 04/11/18 04/11/18 Budesonide/Formoterol 160/4.5 2 puff IH BID 04/11/18 04/11/18 [Symbicort 160/4.5] Isosorbide MONOnitrate [Isosorbide 30 mg PO DAILY 04/11/18 04/11/18 Mononitrate ER] Metoprolol [Lopressor] 25 mg PO BID 04/11/18 04/11/18 Tiotropium [place] [Spiriva 1 puff IH DAILY 04/11/18 04/11/18 Respimat] Allergies Allergy/AdvReac Type Severity Reaction Status Date / Time cephalexin [From Keflex] Allergy Hives Verified 02/25/18 11:07 chlorpheniramine Allergy Hives Verified 02/25/18 11:07 [From Ornade] codeine Allergy Chest Pain Verified 02/25/18 11:07 Penicillins Allergy Hives Verified 02/25/18 11:07 phenylpropanolamine Allergy Hives Verified 02/25/18 11:07 [From Ornade] Gjpbliq-Fxf-Ybp Reductase AdvReac Muscle Pain Verified 02/25/18 11:07 Inhibitor Past Medical History - Past Medical History Medical history: Reports: cancer, COPD, hyperlipidemia, hypertension, other Surgical history: Reports: angioplasty/stent, appendectomy, cholecystectomy, hysterectomy, other Psychiatric history: Reports: no psych history 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 history - Social History Smoking Status: Current every day smoker Smokeless Tobacco Status: No Alcohol use: Reports: none Drug use: Reports: none Course Vital Signs Respiratory Rate 18 04/11/18 20:08 Blood Pressure 167/78 04/11/18 20:08 O2 Sat by Pulse Oximetry 93 04/11/18 20:08 Temperature 98 F 04/11/18 23:15 Pulse Rate 97 04/11/18 23:15 Respiratory Rate 22 04/11/18 23:15 Blood Pressure 140/71 11/13/18 23:15 O2 Sat by Pulse Oximetry 94 04/11/18 23:15 Oxygen Delivery Oxygen Delivery Nasal Cannula Medical Decision Making - Lab Data Result diagrams: 04/11/18 20:08 04/11/18 20:08 Lab Results 04/11/18 04/11/18 04/11/18 Range/Units 20:08 20:08 20:08 WBC 17.3 H (4.3-11.1) K/mcL RBC 5.98 H (3.82-4.97) M/mcL Hgb 16.6 H (11.5-15.4) g/dL Hct 51.9 H (35.3-44.9) % MCV 86.8 (83.0-100.0) fL MCH 27.8 L (28.0-33.3) pg MCHC 32.0 (31.6-35.5) g/dL RDW 15.8 H (11.5-14.5) % Plt Count 331 (140-400) K/mcL MPV 9.5 (9.4-12.4) fL Immature Gran % 0.6 (0-4) % Seg Neutrophils % 86.7 % Lymphocytes % 8.3 % Monocytes % 3.6 % Eosinophils % 0.4 % Basophils % 0.4 % Neutrophils # 15.0 H (1.6-8.9) K/mcL Lymphocytes # 1.4 (0.6-4.6) K/mcL Monocytes # 0.6 (0.0-1.3) K/mcL Eosinophils # 0.1 (0.0-0.6) K/mcL Basophils # 0.1 (0.0-0.2) K/mcL VBG pH (7.32-7.42) pH Units VBG pCO2 (41-51) mmHg VBG pO2 (25-50) mmHg VBG HCO3 (21-27) mEq/L Sodium 139 (136-145) mEq/L Potassium 4.1 (3.5-5.1) mEq/L Chloride 98 (98-107) mEq/L Carbon Dioxide 31 H (23-29) mEq/L BUN 11 (8-23) mg/dL Creatinine 0.69 (0.60-1.20) mg/dL Est GFR ( Amer) > 60 (> 60) Est GFR (Non-Af Amer) > 60 (> 60) BUN/Creatinine Ratio 16 (6-26) Glucose 148 H (70-105) mg/dL Calculated Osmolality 290 (280-300) Lactic Acid 2.1 (0.5-2.2) mmol/L Calcium 9.3 (8.6-10.3) mg/dL Troponin I < 0.03 (< 0.04) ng/mL B-Natriuretic Peptide (Less than 100) pg/mL 04/11/18 04/11/18 Range/Units 20:08 21:09 WBC (4.3-11.1) K/mcL RBC (3.82-4.97) M/mcL Hgb (11.5-15.4) g/dL Hct (35.3-44.9) % MCV (83.0-100.0) fL MCH (28.0-33.3) pg MCHC (31.6-35.5) g/dL RDW (11.5-14.5) % Plt Count (140-400) K/mcL MPV (9.4-12.4) fL Immature Gran % (0-4) % Seg Neutrophils % % Lymphocytes % % Monocytes % % Eosinophils % % Basophils % % Neutrophils # (1.6-8.9) K/mcL Lymphocytes # (0.6-4.6) K/mcL Monocytes # (0.0-1.3) K/mcL Eosinophils # (0.0-0.6) K/mcL Basophils # (0.0-0.2) K/mcL VBG pH 7.34 (7.32-7.42) pH Units VBG pCO2 52 H (41-51) mmHg VBG pO2 49 (25-50) mmHg VBG HCO3 28 H (21-27) mEq/L Sodium (136-145) mEq/L Potassium (3.5-5.1) mEq/L Chloride (98-107) mEq/L Carbon Dioxide (23-29) mEq/L BUN (8-23) mg/dL Creatinine (0.60-1.20) mg/dL Est GFR ( Amer) (> 60) Est GFR (Non-Af Amer) (> 60) BUN/Creatinine Ratio (6-26) Glucose (70-105) mg/dL Calculated Osmolality (280-300) Lactic Acid (0.5-2.2) mmol/L Calcium (8.6-10.3) mg/dL Troponin I (< 0.04) ng/mL B-Natriuretic Peptide 24 (Less than 100) pg/mL Critical Care Time Critical Care Time: Yes Total Critical Care Time: 40 Attestation: Critical care performed: Time is exclusive of separately billable procedures. Time includes: direct patient care, patient reassessment, coordination of patient care, interpretation of data (laboratory data, radiology data, and respiratory data), review of patient's medical records, medical consultation and documentation of patient care. Procedures included in critical care time: Procedures excluded from critical care time: Attestation Statement - Attestation Attestation: I examined this patient and my medical decision-making was reviewed with the Resident Physician. I agree with the documented findings, disposition and treatment plan as described except to the extent set forth below. Patient presents to the ED with chief complaint of difficulty breathing. Fever. Dry cough. She was seen about a month ago for a similar episode, but family states this is worse. She took her steroids and got better. She has been around her granddaughter who tested positive for flu B. On examination she is visibly dyspneic. Accessory muscle use. Tachypneic. Lungs with diffuse expiratory wheezing. Plan. Nebs steroids. Cardiac workup. Flu swab. Reevaluate. Patient reevaluated and is doing much better. Still with expiratory wheezing, but no longer with accessory muscle use. X-ray shows a pneumonia and bilateral effusions. She has been given steroids and nebs. Treating for community acquired pneumonia. Admitting to medicine. Patient meets sepsis criteria with her white count and fever.
[2018-04-11] MEDS ORDERED: Acetaminophen 325 MG TABLET PO ONE (20:15)
[2018-04-11 20:27] LABS: Basophils # 0.1 K/mcL (0.0-0.2); Basophils % 0.4 %; Eosinophils # 0.1 K/mcL (0.0-0.6); Eosinophils % 0.4 %; Hematocrit 51.9 % (35.3-44.9); Hemoglobin 16.6 g/dL (11.5-15.4); Immature Granulocytes % 0.6 % (0-4); Lymphocytes # 1.4 K/mcL (0.6-4.6); Lymphocytes % 8.3 %; Mean Corpuscular Hemoglobin 27.8 pg (28.0-33.3); Mean Corpuscular Volume 86.8 fL (83.0-100.0); Mean Platelet Volume 9.5 fL (9.4-12.4); Monocytes # 0.6 K/mcL (0.0-1.3); Monocytes % 3.6 %; Platelet Count 331 K/mcL (140-400); Red Blood Count 5.98 M/mcL (3.82-4.97); Red Cell Distribution Width 15.8 % (11.5-14.5); Segmented Neutrophils % 86.7 %
[2018-04-11] MEDS ORDERED: 0.9 % Sodium Chloride 500 ML IVC ONE (20:28)
[2018-04-11] MEDS ORDERED: 0.9 % Sodium Chloride 1,000 ML ONE (20:36)
[2018-04-11 20:48] LABS: BUN/Creatinine Ratio 16 (6-26); Blood Urea Nitrogen 11 mg/dL (8-23); Calcium 9.3 mg/dL (8.6-10.3); Carbon Dioxide 31 mEq/L (23-29); Chloride 98 mEq/L (98-107); Glucose 148 mg/dL (70-105); Osmolality,Calculated 290 (280-300); Potassium 4.1 mEq/L (3.5-5.1); Sodium 139 mEq/L (136-145); eGFR For Non-African Americans > 60 (> 60)
[2018-04-11 20:49] LABS: Troponin I < 0.03 ng/mL (< 0.04)
[2018-04-11 21:12] LABS: VBG HCO3 28 mEq/L (21-27); VBG PCO2 52 mmHg (41-51); VBG PH 7.34 pH Units (7.32-7.42); VBG PO2 49 mmHg (25-50)
--- NOTE | 2018-04-11 21:50 | Emergency Department Note ---
Disposition Clinical Impression: COPD exacerbation Pneumonia Qualifiers: Pneumonia type: due to unspecified organism Laterality: left Lung location: lower lobe of lung Qualified Code(s): J18.1 - Lobar pneumonia, unspecified organism Disposition: Admitted As Inpatient Condition: Fair Time of Disposition: 21:49 General Adult HPI - General Chief complaint: ED Shortness of Breath/Dyspnea Stated complaint: rory Time Seen by Provider: 04/11/18 20:00 Source: patient, family, EMS Mode of arrival: EMS Limitations: no limitations Nursing Notes Reviewed: Yes Vital Signs Reviewed: Yes - History of Present Illness HPI Narrative: Patient is a 67-year-old female with a past medical history of COPD and 2 cardiac stents presents emergency department for evaluation of difficulty in breathing patient states that she has been with upper respiratory symptoms for the past 13 days including nasal congestion and cough and been using her albuterol scheduled. She states she has a history of hospitalizations in the past for COPD. She currently requires 2 L of nasal cannula oxygen chronically. Denies any chest pain admits to a productive cough. Pain Scale: 0 - Related Data Home Medications Medication Instructions Recorded Confirmed Albuterol Sulfate [Albuterol 2 puff IH Q4H PRN 04/11/18 04/11/18 Inhaler] Aspirin 325 mg PO DAILY 04/11/18 04/11/18 Budesonide/Formoterol 160/4.5 2 puff IH BID 04/11/18 04/11/18 [Symbicort 160/4.5] Isosorbide MONOnitrate [Isosorbide 30 mg PO DAILY 04/11/18 04/11/18 Mononitrate ER] Metoprolol [Lopressor] 25 mg PO BID 04/11/18 04/11/18 Tiotropium [place] [Spiriva 1 puff IH DAILY 04/11/18 04/11/18 Respimat] Allergies Allergy/AdvReac Type Severity Reaction Status Date / Time cephalexin [From Keflex] Allergy Hives Verified 02/25/18 11:07 chlorpheniramine Allergy Hives Verified 02/25/18 11:07 [From Ornade] codeine Allergy Chest Pain Verified 02/25/18 11:07 Penicillins Allergy Hives Verified 02/25/18 11:07 phenylpropanolamine Allergy Hives Verified 02/25/18 11:07 [From Ornade] Qkwscnd-Dcq-Png Reductase AdvReac Muscle Pain Verified 02/25/18 11:07 Inhibitor All systems ED: reviewed and negative except as stated. Review of Systems: As Per HPI Constitutional: Denies: fever, chills Cardiovascular: Reports: dyspnea on exertion. Denies: chest pain, palpitations, edema Respiratory: Reports: cough, dyspnea, wheezes, sputum production. Denies: hemop tysis Gastrointestinal: Denies: abdominal pain, nausea, vomiting, diarrhea Past Medical History - Past Medical History Attestation: Yes The following information was validated with the patient. 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 HEAD: Normocephalic; atraumatic EYES: PERRL, no scleral icterus NOSE: The nose is normal in appearance without rhinorrhea NECK: No JVD or distended neck veins RESP: Tachypnea; Wheezes bilaterally and ronchi in the LLL. CARD: Tachycardia. Regular rhythm, without murmurs, rub or gallop ABD: Non-distended; non-tender, soft, without rigidity, rebound or guarding,no pulsatile mass CHEST: No pain with palpation SKIN: Normal for age and race; warm and dry without diaphoresis ; no apparent lesions EXTREMITIES: Pulses are 2 plus and equal times 4 extremities, no peripheral edema or calf muscle pain - General Limitations: no limitations General appearance: alert Course Course Narrative: Patient is a oni-gnnq-qwf she will she presents and [place] distress. She is currently on 4 L nasal cannula oxygen saturations at 95% and she is also ta chycardic and with a fever. Physical exam is consistent with a COPD exacerbation versus pneumonia. Patient does not require BiPAP at this time. Chest x-ray, basic labs as well as cardiac workup will be initiated. - Reevaluation(s) Reevaluation #1: Patient improved markedly after the 3 doses of dual neb, steroids and she was also initiated on empiric antibiotics for community acquired pneumonia. Patient is sitting up in bed more comfortable and has improved proved aeration of bilateral lung carias with mild wheezing. Discussed her case with the hospice on-call and they agree to accept the patient for COPD exacerbation as well as pneumonia. She had a chest x-ray that shows a left lower lobe infiltrate. Vital Signs Respiratory Rate 18 04/11/18 20:08 Blood Pressure 167/78 04/11/18 20:08 O2 Sat by Pulse Oximetry 93 04/11/18 20:08 Temperature 98 F 04/11/18 23:15 Pulse Rate 97 04/11/18 23:15 Respiratory Rate 22 04/11/18 23:15 Blood Pressure 140/71 04/11/18 23:15 O2 Sat by Pulse Oximetry 94 04/11/18 23:15 Oxygen Delivery Oxygen Delivery Nasal Cannula Medical Decision Making - Medical Records Medical records reviewed: Yes I reviewed the patient's medical records. - Lab Data Lab results reviewed: Yes I reviewed the patient's lab results. Result diagrams: 04/11/18 20:08 04/11/18 20:08 Lab Results 04/11/18 04/11/18 04/11/18 Range/Units 20:08 20:08 20:08 WBC 17.3 H (4.3-11.1) K/mcL RBC 5.98 H (3.82-4.97) M/mcL Hgb 16.6 H (11.5-15.4) g/dL Hct 51.9 H (35.3-44.9) % MCV 86.8 (83.0-100.0) fL MCH 27.8 L (28.0-33.3) pg MCHC 32.0 (31.6-35.5) g/dL RDW 15.8 H (11.5-14.5) % Plt Count 331 (140-400) K/mcL MPV 9.5 (9.4-12.4) fL Immature Gran % 0.6 (0-4) % Seg Neutrophils % 86.7 % Lymphocytes % 8.3 % Monocytes % 3.6 % Eosinophils % 0.4 % Basophils % 0.4 % Neutrophils # 15.0 H (1.6-8.9) K/mcL Lymphocytes # 1.4 (0.6-4.6) K/mcL Monocytes # 0.6 (0.0-1.3) K/mcL Eosinophils # 0.1 (0.0-0.6) K/mcL Basophils # 0.1 (0.0-0.2) K/mcL VBG pH (7.32-7.42) pH Units VBG pCO2 (41-51) mmHg VBG pO2 (25-50) mmHg VBG HCO3 (21-27) mEq/L Sodium 139 (136-145) mEq/L Potassium 4.1 (3.5-5.1) mEq/L Chloride 98 (98-107) mEq/L Carbon Dioxide 31 H (23-29) mEq/L BUN 11 (8-23) mg/dL Creatinine 0.69 (0.60-1.20) mg/dL Est GFR ( Amer) > 60 (> 60) Est GFR (Non-Af Amer) > 60 (> 60) BUN/Creatinine Ratio 16 (6-26) Glucose 148 H (70-105) mg/dL Calculated Osmolality 290 (280-300) Lactic Acid 2.1 (0.5-2.2) mmol/L Calcium 9.3 (8.6-10.3) mg/dL Troponin I < 0.03 (< 0.04) ng/mL B-Natriuretic Peptide (Less than 100) pg/mL 04/11/18 04/11/18 Range/Units 20:08 21:09 WBC (4.3-11.1) K/mcL RBC (3.82-4.97) M/mcL Hgb (11.5-15.4) g/dL Hct (35.3-44.9) % MCV (83.0-100.0) fL MCH (28.0-33.3) pg MCHC (31.6-35.5) g/dL RDW (11.5-14.5) % Plt Count (140-400) K/mcL MPV (9.4-12.4) fL Immature Gran % (0-4) % Seg Neutrophils % % Lymphocytes % % Monocytes % % Eosinophils % % Basophils % % Neutrophils # (1.6-8.9) K/mcL Lymphocytes # (0.6-4.6) K/mcL Monocytes # (0.0-1.3) K/mcL Eosinophils # (0.0-0.6) K/mcL Basophils # (0.0-0.2) K/mcL VBG pH 7.34 (7.32-7.42) pH Units VBG pCO2 52 H (41-51) mmHg VBG pO2 49 (25-50) mmHg VBG HCO3 28 H (21-27) mEq/L Sodium (136-145) mEq/L Potassium (3.5-5.1) mEq/L Chloride (98-107) mEq/L Carbon Dioxide (23-29) mEq/L BUN (8-23) mg/dL Creatinine (0.60-1.20) mg/dL Est GFR ( Amer) (> 60) Est GFR (Non-Af Amer) (> 60) BUN/Creatinine Ratio (6-26) Glucose (70-105) mg/dL Calculated Osmolality (280-300) Lactic Acid (0.5-2.2) mmol/L Calcium (8.6-10.3) mg/dL Troponin I (< 0.04) ng/mL B-Natriuretic Peptide 24 (Less than 100) pg/mL - Radiology Data Radiology results reviewed: Yes I reviewed the patient's radiology results. Chest X-Ray 04/11/18 20:04 IMPRESSION: 1. Interval worsening in left lung base pulmonary opacity may represent atelectasis, aspiration, and/or pneumonia. Bilateral pleural effusions, right greater than left. Recommend radiographic follow-up to complete resolution. 2. Findings suggestive of underlying interstitial edema. D/ / Golden Martinez MD / Golden Martinez MD Interpreting Provider: Golden Martinez MD - EKG Data EKG #1 EKG attestation: Yes I reviewed and interpreted this EKG. EKG results narrative: EKG done at 20:05 shows sinus tachycardia rate 128 bpm. Normal axis. Intervals within normal limits. No signs of ischemia.
[2018-04-11] MEDS ORDERED: Ipratropium/Albuterol Neb 3 ML IH PRN (22:12)
[2018-04-11] MEDS ORDERED: Ondansetron 4 MG/2 ML VIAL IVP PRN (22:12)
[2018-04-11] MEDS ORDERED: Naloxone 0.4 MG/ML INJ IVP PRN (22:15)
[2018-04-11] MEDS ORDERED: Acetaminophen 325 MG TABLET PO PRN (22:15)
--- NOTE | 2018-04-11 22:22 | Internal Med History&Physical ---
Date of Encounter: 04/11/18 Time of Encounter: 22:17 Internal Medicine - H&P: HPI Chief complaint: Short of breath Admitted From: Emergency Dept Plans for Post Hospital Care: Home History of present illness: Ms. Reyes is a 67 year old female with history of coronary disease with stents, cervical cancer in 1974 with total hysterectomy and right lung cancer with removal of RLL, COPD, HTN, and HLD who presents from the ED with chief complaint of difficulty breathing. This has been going on for a few weeks or so. She has been coughing but the cough has been dry. She had a granddaughter who she has been around who is been diagnosed with the flu recently. Upon arrival here she was febrile with a temp of 101.9. She was tachycardic in the 120s. She was hypoxic in the mid 80s on room air and put on supplemental oxygen. Her lactic acid was not elevated. She had leukocytosis. Chest x-ray showed infiltrates. The patient was significantly wheezing apparently upon presentation was given nebulizers, Solu-Medrol. She was also given Zithromax and ceftriaxone in the ED. She tested negative for the flu in the ED. EKG with no acute ST or T-wave changes but showed sinus tachycardia. Denies any headache, blurry vision, diaphoresis, dizziness, chest pain, abdominal pain, diarrhea, constipation, urinary symptoms, or neurological symptoms. Past Med Surg Social Fam HX - Past Medical History Medical history: cancer, COPD, hyperlipidemia, hypertension, other Additional medical history: Right lobectomy- Lung CA Psychiatric history: no psych history - Past Surgical History Surgical History: angioplasty/stent, appendectomy, cholecystectomy, hysterectomy, other Additional surgical history: lobectomy, cardiac stents - Social History Smoking Status: Current every day smoker Smokeless Tobacco Status: No Alcohol use: none Drug use: none - Family History Father Family Member Ethnicity: Non- Living Status: Hx Family Cancer: Yes (Lymphoma) Sister Family Member Ethnicity: Non- Living Status: Still Living Hx Family Respiratory Disorders: Yes (COPD) Mother Adopted: No Family Member Ethnicity: Non- Living Status: Hx Family Cardiac Disorders: No Hx Family Respiratory Disorders: Yes (COPD) Hx Family Cancer: Yes (Lymphoma) Hx Family GI Disorders: No Hx Family Endocrine Disorder: No Hx Family Neuromuscular Disorders: No Hx Family Neurologic Disorders: No Hx Family HEENT Disorders: No Hx Family Autoimmune Disorders: No Internal Medicine - H&P: Meds Allergy/AdvReac Type Severity Reaction Status Date / Time cephalexin [From Keflex] Allergy Hives Verified 02/25/18 11:07 chlorpheniramine Allergy Hives Verified 02/25/18 11:07 [From Ornade] codeine Allergy Chest Pain Verified 02/25/18 11:07 Penicillins Allergy Hives Verified 02/25/18 11:07 phenylpropanolamine Allergy Hives Verified 02/25/18 11:07 [From Ornade] Uihrira-Oho-Uuj Reductase AdvReac Muscle Pain Verified 02/25/18 11:07 Inhibitor All Systems PM: A 10-system review of systems was performed and is negative for pertinent findings except as documented above in the HPI. Review of systems: All systems reviewed are negative except as mentioned mentioned above - Constitutional Vitals: Temp Pulse Resp BP Pulse Ox 101.9 F H 127 22 129/70 93 04/11/18 20:11 04/11/18 20:42 04/11/18 20:42 04/11/18 20:42 04/11/18 20:42 Exam: GEN: NAD HEENT: AT, NC, No cyanosis, oral mucosa is moist, No JVD Lymphatics: No lymphadenoapthy Eyes: Extrocular muscles intact, anicteric CVS:RRR. S1, S2, No m/r/g RESP: Diminished with scattered rhonchi and expiratory wheezes ABD: Soft, NT, ND, +BS EXT: No edema, No rashes, 2+ DP NEURO: Nonfocal, CN II-XII intact, No focal motor or sensory deficits Psych: Cooperative, Not anxious or depressed Internal Med - H&P Results - Labs CBC & Chem 7: 04/11/18 20:08 04/11/18 20:08 Labs: Short CBC 04/11/18 Range/Units 20:08 WBC 17.3 H (4.3-11.1) K/mcL Hgb 16.6 H (11.5-15.4) g/dL Hct 51.9 H (35.3-44.9) % Plt Count 331 (140-400) K/mcL Neutrophils # 15.0 H (1.6-8.9) K/mcL BMP 04/11/18 20:08 Sodium 139 Potassium 4.1 Chloride 98 Carbon Dioxide 31 H BUN 11 Creatinine 0.69 Glucose 148 H Calcium 9.3 Cardiac Enzymes 04/11/18 Range/Units 20:08 Troponin I < 0.03 (< 0.04) ng/mL - ABG Interpretation ABG results: 04/11/18 21:09 VBG pH 7.34 VBG pCO2 52 H VBG pO2 49 VBG HCO3 28 H - Impressions ITS Impressions Chest X-Ray 04/11/18 20:04 IMPRESSION: 1. Interval worsening in left lung base pulmonary opacity may represent atelectasis, aspiration, and/or pneumonia. Bilateral pleural effusions, right greater than left. Recommend radiographic follow-up to complete resolution. 2. Findings suggestive of underlying interstitial edema. D/ / Golden Martinez MD / Golden Martinez MD Interpreting Provider: Golden Martinez MD - Assessment and plan (1) Sepsis Current Visit: No Status: Acute Assessment and plan: We will treat underlying cause of pneumonia as below. Lactic acid is borderline normal. The patient was given IV fluids in the ED and I will hold off on more fluids given her history of coronary disease and comments of some interstitial edema on the chest x-ray. I do not have an echo on record to tell me her cardiac function. Qualifiers: Sepsis type: sepsis due to unspecified organism Qualified Code(s): A41.9 - Sepsis, unspecified organism (2) Pneumonia Current Visit: Yes Status: Acute Assessment and plan: We will treat the patient for community acquired pneumonia with IV ceftriaxone and Zithromax. O2 support as needed. Nebs. Check sputum cultures. Check urine strep and Legionella. Flu been ruled out. Qualifiers: Pneumonia type: due to unspecified organism Laterality: left Lung location: lower lobe of lung Qualified Code(s): J18.1 - Lobar pneumonia, unspecified organism (3) Acute exacerbation of chronic obstructive airways disease Current Visit: No Status: Acute Assessment and plan: We will place the patient on IV Solu-Medrol 60 mg every 8 hours and nebs. (4) CAD (coronary artery disease) Current Visit: No Status: Chronic Assessment and plan: Resume home meds Qualifiers: Coronary Disease-Associated Artery/Lesion type: [place] artery [place] vs. transplanted heart: [place] heart Associated angina: without angina Qualified Code(s): I25.10 - Atherosclerotic heart disease of [place] coronary artery without angina pectoris (5) HLD (hyperlipidemia) Current Visit: No Status: Chronic Assessment and plan: Resume home meds Qualifiers: Hyperlipidemia type: pure hypercholesterolemia Qualified Code(s): E78.00 - Pure hypercholesterolemia, unspecified; E78.0 - Pure hypercholesterolemia (6) HTN (hypertension) Current Visit: No Status: Chronic Assessment and plan: Resume home meds Qualifiers: Hypertension type: essential hypertension Qualified Code(s): I10 - Essential (primary) hypertension (7) DVT prophylaxis Current Visit: No Status: Acute Assessment and plan: Heparin subcutaneous - Time Spent With Patient Total time spent is greater than 50% in coordination of care (as documented) at patient's floor/unit and/or counseling patient:
[2018-04-11] MEDS ORDERED: Azithromycin 500 MG in D5% in Water 250 ML IVPB SCH (23:00)
[2018-04-12 05:15] LABS: Basophils # 0.1 K/mcL (0.0-0.2); Basophils % 0.2 %; Hematocrit 46.1 % (35.3-44.9); Immature Granulocytes % 0.5 % (0-4); Lymphocytes # 0.8 K/mcL (0.6-4.6); Lymphocytes % 3.5 %; Mean Corpuscular HGB Conc 31.5 g/dL (31.6-35.5); Mean Corpuscular Hemoglobin 27.3 pg (28.0-33.3); Mean Corpuscular Volume 86.8 fL (83.0-100.0); Mean Platelet Volume 9.8 fL (9.4-12.4); Monocytes % 4.6 %; Neutrophils # 19.4 K/mcL (1.6-8.9); Platelet Count 269 K/mcL (140-400); Red Blood Count 5.31 M/mcL (3.82-4.97); Red Cell Distribution Width 15.7 % (11.5-14.5); Segmented Neutrophils % 91.2 %
[2018-04-12 05:17] LABS: Hemoglobin 14.5 g/dL (11.5-15.4)
[2018-04-12] MEDS: *HR* Heparin 5,000 UNIT/ML VIAL SQ SCH ×3 (05:20→21:49)
[2018-04-12 05:32] LABS: BUN/Creatinine Ratio 17 (6-26); Blood Urea Nitrogen 10 mg/dL (8-23); Calcium 8.9 mg/dL (8.6-10.3); Carbon Dioxide 27 mEq/L (23-29); Chloride 102 mEq/L (98-107); Glucose 152 mg/dL (70-105); Magnesium 1.9 mg/dL (1.6-2.6); Osmolality,Calculated 290 (280-300); Potassium 4.4 mEq/L (3.5-5.1); Sodium 139 mEq/L (136-145); eGFR For Non-African Americans > 60 (> 60)
[2018-04-12] MEDS ORDERED: methylPREDNISolone 125 MG/2 ML VIAL IVP SCH ×2 (08:00)
[2018-04-12] MEDS: Budesonide/Formoterol 160/4.5 1 PUFF INH IH SCH ×2 (08:00→19:57)
[2018-04-12] MEDS: Aspirin 325 MG TABLET PO SCH (09:25)
[2018-04-12] MEDS: Isosorbide MONOnitrate (24 HR) 30 MG TAB.ER.24H PO SCH (09:25)
[2018-04-12] MEDS: Tiotropium 18 MCG inhalation IH SCH (11:39)
--- NOTE | 2018-04-12 15:00 | Internal Med Progress Note ---
Hospitalist Progress Note - Encounter Date of Encounter: 04/12/18 Time of Encounter: 14:58 - Subjective Interval History: i've seen and evaluated the patient at bedside. she reports that she is doing well, her breathing has improved, but still feels mild shortness of breath. denies chest pain, nausea or vomiting. Code status discussed and patient reports that she is DNR/DNI. - Exam Vitals: Temp Pulse Resp BP Pulse Ox 97.5 F L 90 20 122/68 92 04/12/18 05:16 04/12/18 11:21 04/12/18 08:05 04/12/18 11:21 04/12/18 11:21 Exam: Vitals: Reviewed General: Alert and oriented x4. In mild distress due to shortness of breath and non-productive cough. Skin: Normal color, no rash, no lesions. HEENT: EOM, pupils equal, round and reactive. Cardiovascular: RRR, Normal S1 & S2, no rubs, murmurs or gallops. Lungs: rales heard at the left lower base, no wheezes or crackles. Abdomen: Soft, non-tender, no rigidity. Extremities: No deformity, no edema or tenderness, no joint swelling or clubbing. Neurological: Normal cognition and motor skills. Rest of the physical exam is non contributory - Assessment and Plan (1) Acute exacerbation of chronic obstructive airways disease Current Visit: No Status: Acute Assessment and Plan: Improving Plan On O2 by nasal cannula, titrate for O2Sat >92% decrease solu-Medrol to 40mg/IV BID being covered empirically with IV antibiotics on azithromycin and Ceftriaxone re-started on spiriva, home medication On Duo-Nebs Q4RT scheduled. Continue symbicort (2) CAD (coronary artery disease) Current Visit: No Status: Chronic Assessment and Plan: Patient on aspirin 325 mg by mouth daily. (3) HTN (hypertension) Current Visit: No Status: Chronic Assessment and Plan: Blood pressure is well controlled on metoprolol 25 mg by mouth twice a day, and isosorbide 30 mg by mouth daily. (4) Pneumonia Current Visit: Yes Status: Acute Assessment and Plan: Community-acquired pneumonia. Blood cultures: No growth, pending final report Continue azithromycin 500 mg IV daily and ceftriaxone 1 g IV daily. Urine for atypical (5) Sepsis Current Visit: No Status: Resolved (6) Acute and chronic respiratory failure with hypoxia Current Visit: No Status: Acute Assessment and Plan: As per patient she has home O2 but only uses it when she gets a cold. reports that she is supposed to be on 2 litters O2 by nasal cannula. DVT Prophylaxis: On heparin subcutaneous - Summary of Assessment and Plan Summary of Assessment and Plan: Patient to remain in the hospital due to Pneumonia. requiring O2 by nasal cannu la. - Time Spent with Patient Total time spent is greater than 50% in coordination of care (as documented) at patient's floor/unit and/or counseling patient: Greater than 35 minutes (38) Plan of Care Discussed with: patient (and the nurse.) Internal Medicine: Result - Labs CBC & Chem 7: 04/12/18 04:53 04/12/18 04:53 Labs: Short CBC 04/11/18 04/12/18 Range/Units 20:08 04:53 WBC 17.3 H 21.3 H (4.3-11.1) K/mcL Hgb 16.6 H 14.5 D (11.5-15.4) g/dL Hct 51.9 H 46.1 H (35.3-44.9) % Plt Count 331 269 (140-400) K/mcL Neutrophils # 15.0 H 19.4 H (1.6-8.9) K/mcL BMP 04/11/18 04/12/18 20:08 04:53 Sodium 139 139 Potassium 4.1 4.4 Chloride 98 102 Carbon Dioxide 31 H 27 BUN 11 10 Creatinine 0.69 0.60 Glucose 148 H 152 H Calcium 9.3 8.9 Cardiac Enzymes 04/11/18 Range/Units 20:08 Troponin I < 0.03 (< 0.04) ng/mL - Impressions Impressions Chest X-Ray 04/11/18 20:04 IMPRESSION: 1. Interval worsening in left lung base pulmonary opacity may represent atelectasis, aspiration, and/or pneumonia. Bilateral pleural effusions, right greater than left. Recommend radiographic follow-up to complete resolution. 2. Findings suggestive of underlying interstitial edema. D/ / Golden Martinez MD / Golden Martinez MD Interpreting Provider: Golden Martinez MD Consult Discharge Plan - Plan (2) CAD (coronary artery disease) Qualifiers: Coronary Disease-Associated Artery/Lesion type: [place] artery [place] vs. transplanted heart: [place] heart Associated angina: without angina Qualified Code(s): I25.10 - Atherosclerotic heart disease of [place] coronary artery without angina pectoris (3) HTN (hypertension) Qualifiers: Hypertension type: essential hypertension Qualified Code(s): I10 - Essential (primary) hypertension (4) Pneumonia Qualifiers: Pneumonia type: due to unspecified organism Laterality: left Lung location: lower lobe of lung Qualified Code(s): J18.1 - Lobar pneumonia, unspecified organism (5) Sepsis Qualifiers: Sepsis type: sepsis due to unspecified organism Qualified Code(s): A41.9 - Sepsis, unspecified organism
[2018-04-12] MEDS ORDERED: Azithromycin 500 MG in D5% in Water 250 ML IVPB SCH (18:00)
[2018-04-12] MEDS ORDERED: cefTRIAXone 1,000 MG in 0.9 % Sodium Chloride Mini Bag 100 ML IVPB SCH (18:00)
[2018-04-12] MEDS: MethylPREDNISolone 40 MG/ML VIAL IVP SCH (18:27)
--- NOTE | 2018-04-13 04:48 | Event Note ---
Date of Encounter: 04/13/18 Time of Encounter: 04:30 Notified by nurse that patient would like to discuss code status. Patient alert and oriented. Patient states after discussing with her family would like her code status changed to full code. Code status updated.
[2018-04-13] MEDS: MethylPREDNISolone 40 MG/ML VIAL IVP SCH (06:17)
[2018-04-13] MEDS: *HR* Heparin 5,000 UNIT/ML VIAL SQ SCH (06:17)
[2018-04-13 07:17] LABS: Basophils % 0.1 %; Hemoglobin 13.2 g/dL (11.5-15.4); Immature Granulocytes % 0.8 % (0-4); Lymphocytes # 1.3 K/mcL (0.6-4.6); Lymphocytes % 6.3 %; Mean Corpuscular HGB Conc 31.4 g/dL (31.6-35.5); Mean Corpuscular Hemoglobin 27.7 pg (28.0-33.3); Mean Corpuscular Volume 88.1 fL (83.0-100.0); Mean Platelet Volume 10.3 fL (9.4-12.4); Monocytes # 0.9 K/mcL (0.0-1.3); Monocytes % 4.1 %; Neutrophils # 18.2 K/mcL (1.6-8.9); Platelet Count 260 K/mcL (140-400); Red Blood Count 4.77 M/mcL (3.82-4.97); Red Cell Distribution Width 15.5 % (11.5-14.5); Segmented Neutrophils % 88.7 %
[2018-04-13 07:38] LABS: BUN/Creatinine Ratio 18 (6-26); Blood Urea Nitrogen 9 mg/dL (8-23); Calcium 9.2 mg/dL (8.6-10.3); Carbon Dioxide 28 mEq/L (23-29); Chloride 104 mEq/L (98-107); Glucose 120 mg/dL (70-105); Magnesium 1.9 mg/dL (1.6-2.6); Osmolality,Calculated 286 (280-300); Phosphorous 3.2 mg/dL (2.7-4.5); Sodium 138 mEq/L (136-145); eGFR For Non-African Americans > 60 (> 60)
[2018-04-13 08:12] VITALS: BP 136/80
[2018-04-13] MEDS: Isosorbide MONOnitrate (24 HR) 30 MG TAB.ER.24H PO SCH (09:28)
[2018-04-13] MEDS: Aspirin 325 MG TABLET PO SCH (09:28)
--- NOTE | 2018-04-13 09:34 | Discharge Summary ---
- NOTES TO OUTPATIENT PROVIDER Notes to Outpatient Provider: Follow-up with your primary care physician within a week of hospital discharge. Recommended to make an appointment with pulmonology within 1-2 weeks of hospital discharge. Orders not resulted at time of discharge: Pending orders 04/11/18 20:28 Culture,Blood [BC] Stat 04/11/18 22:13 Culture,Sputum with Gram Stain [RM] Routine 04/12/18 15:26 Legionella Type 1 Antibody,IgM Stat Date of Encounter: 04/13/18 Time of Encounter: 09:31 - Discharge Diagnosis (1) Acute exacerbation of chronic obstructive airways disease Priority: Primary Status: Resolved (2) CAD (coronary artery disease) Priority: Secondary Status: Chronic Qualifiers: Coronary Disease-Associated Artery/Lesion type: [place] artery [place] vs. transplanted heart: [place] heart Associated angina: without angina Qualified Code(s): I25.10 - Atherosclerotic heart disease of [place] coronary artery without angina pectoris (3) HTN (hypertension) Priority: Secondary Status: Chronic Qualifiers: Hypertension type: essential hypertension Qualified Code(s): I10 - Essential (primary) hypertension (4) Pneumonia Priority: Secondary Status: Acute Qualifiers: Pneumonia type: due to unspecified organism Laterality: left Lung location: lower lobe of lung Qualified Code(s): J18.1 - Lobar pneumonia, unspecified organism (5) Sepsis Priority: Secondary Status: Resolved Qualifiers: Sepsis type: sepsis due to unspecified organism Qualified Code(s): A41.9 - Sepsis, unspecified organism (6) Acute and chronic respiratory failure with hypoxia Priority: Secondary Status: Chronic Hospital course: Ms. Reyes is a 67 year old female history of coronary disease with stents, cervical cancer in 1974 with total hysterectomy and right lung cancer with removal of RLL, COPD, HTN, and HLD who presents from the ED with chief complaint of difficulty breathing. This has been going on for a few weeks. Patient admitted to the hospital due to COPD exacerbation, pneumonia. tested for influenza which came back negative. treated with IV antibiotics for CAP, Nebs, plus IV steroids. Patient acute symptoms resolved, still requiring O2 by nasal cannula. Recommended to continue O2 by nasal cannula at home. Patient is hemodynamically stable to be discharged home. Being discharged on Medrol- dosePack and Levofloxacin to complete 7 days of treatment. Recommended to see a [employer] mission systems superintendent within 1-2 weeks of hospital discharge and to have a repeat chest x-ray 4-8 weeks after completion of treatment. - Time Spent with Patient Total time spent providing and/or coordinating discharge services: Greater than 30 minutes (35) - Discharge Medications Prescriptions: levoFLOXacin [Levofloxacin] 750 mg PO DAILY 5 Days #5 tablet Home Medications: Albuterol Sulfate [Albuterol Inhaler] 2 puff IH Q4H PRN 04/11/18 [History] Aspirin 325 mg PO DAILY 04/11/18 [History] Budesonide/Formoterol 160/4.5 [Symbicort 160/4.5] 2 puff IH BID 04/11/18 [History] Isosorbide MONOnitrate [Isosorbide Mononitrate ER] 30 mg PO DAILY 04/11/18 [History] Metoprolol [Lopressor] 25 mg PO BID 04/11/18 [History] Tiotropium Force [Spiriva Respimat] 1 puff IH DAILY 04/11/18 [History] levoFLOXacin [Levofloxacin] 750 mg PO DAILY 5 Days #5 tablet 04/13/18 [Rx] Allergies/Adverse Reactions: Allergy/AdvReac Type Severity Reaction Status Date / Time cephalexin [From Keflex] Allergy Hives Verified 02/25/18 11:07 chlorpheniramine Allergy Hives Verified 02/25/18 11:07 [From Ornade] codeine Allergy Chest Pain Verified 02/25/18 11:07 Penicillins Allergy Hives Verified 02/25/18 11:07 phenylpropanolamine Allergy Hives Verified 02/25/18 11:07 [From Ornade] Igwratv-[id number]-Mlf Reductase AdvReac Muscle Pain Verified 02/25/18 11:07 Inhibitor Date of admission: 04/11/18 22:13 Primary care physician: Eagle Olivares MD Consults: 04/11/18 22:13 Consult to Physical Therapy [CONS] Routine Comment: Evaluate, develop and implement POC Reason for Consult: PT eval Does patient have active BEDREST order?: No Is patient medically & hemodynamically stable?: Yes - Constitutional Vitals: Temp Pulse Resp BP Pulse Ox 97.3 F L 87 16 136/80 92 04/13/18 08:08 04/13/18 08:08 04/13/18 04:25 04/13/18 08:08 04/13/18 08:08 Exam: Vitals: Reviewed General: Alert and oriented x4. In no acute distress Skin: Normal color, no rash, no lesions. Cardiovascular: RRR, Normal S1 & S2, no rubs, murmurs or gallops. Lungs: Rales heard b/l L>R at the bases, no wheezes or crackles. Abdomen: Soft, non-tender, no rigidity. Extremities: No edema. strength is 5/5 in the upper and lower extremities. Neurological: Normal cognition and motor skills. Rest of the physical exam is non contributory - Patient Status Disposition: Home, Self-Care Condition: Good Functional capacity at discharge: independent ambulation Overall status at discharge: patient is progressing back to baseline - Discharge Instructions Follow Up With: Eagle Olivares MD [Primary Care Provider] - Forms: ED Satisfaction Letter - Diet and Activity Activity: resume usual activities as tolerated, wear oxygen at all times Diet: low salt diet
[2018-04-13] MEDS: Tiotropium 18 MCG inhalation IH SCH (11:52)
[2018-04-13] MEDS: Budesonide/Formoterol 160/4.5 1 PUFF INH IH SCH (11:52)
[2018-04-13] MEDS ORDERED: MethylPREDNISolone 40 MG/ML VIAL IVP SCH (18:00)
== END 2018-04-13 12:40 | disposition home or self-care (01) | DRG 871 ==
LOC: EMEROOARM 19:54 → 2NENU 19:54 → SUATTDRO 22:13 → 2NENU 22:59
PROVIDERS: ADMIT Pediatrics; ATTEND Internal Medicine

== ENCOUNTER 2018-09-30 02:17 | Observation (INO) ==
[2018-09-30] MEDS ORDERED: predniSONE 20 MG TABLET PO ONE (02:27)
--- NOTE | 2018-09-30 02:27 | Emergency Department Note ---
Disposition Clinical Impression: COPD exacerbation Chest pain Qualifiers: Chest pain type: unspecified Qualified Code(s): R07.9 - Chest pain, unspecified Disposition: Admitted As Inpatient Condition: Good Chest Pain HPI - General Stated Complaint: Chest Pain Time Seen by Provider: 09/30/18 02:22 Vital Signs Reviewed: Yes Nursing Notes Reviewed: Yes - History of Present Illness HPI Narrative: 59-year-old female presents emergency department with concern for left-sided chest discomfort which brought her into the emergency department. Patient states that she has not had any shortness of breath, but states that she has felt the need to use more DuoNeb's at home. She does have a history of COPD. Patient also has prior history of lobectomy secondary to lung cancer. Patient reports congestion, but denies any cough. She denies fevers. Reports that the chest discomfort is sharp in nature and radiates into the left arm, no nausea, or diaphoresis. - Related Data Home Medications Medication Instructions Recorded Confirmed Aspirin 325 mg PO DAILY 04/11/18 09/30/18 Budesonide/Formoterol 160/4.5 2 puff IH BID 04/11/18 09/30/18 [Symbicort 160/4.5] Isosorbide MONOnitrate [Isosorbide 30 mg PO DAILY 04/11/18 09/30/18 Mononitrate ER] Metoprolol [Lopressor] 25 mg PO BID 04/11/18 09/30/18 Tiotropium [place] [Spiriva 2 puff IH DAILY 04/11/18 09/30/18 Respimat] Albuterol Sulfate [Albuterol 2 puff IH Q4H PRN 09/30/18 09/30/18 Inhaler] Previous Rx's Medication Instructions Recorded Fenofibrate [Tricor] 54 mg PO DAILY #30 tablet 10/02/18 Nitroglycerin 0.4 mg SL Q5MPRN PRN #15 tab.subl 10/02/18 Allergies Allergy/AdvReac Type Severity Reaction Status Date / Time cephalexin [From Keflex] Allergy Hives Verified 02/25/18 11:07 chlorpheniramine Allergy Hives Verified 02/25/18 11:07 [From Ornade] codeine Allergy Chest Pain Verified 02/25/18 11:07 Penicillins Allergy Hives Verified 02/25/18 11:07 phenylpropanolamine Allergy Hives Verified 02/25/18 11:07 [From Ornade] Uahsjxq-Eam-Vxf Reductase AdvReac Muscle Pain Verified 02/25/18 11:07 Inhibitor All systems ED: reviewed and negative except as stated. Review of Systems: As Per HPI Constitutional: Denies: fever Cardiovascular: Reports: chest pain Respiratory: Reports: wheezes. Denies: cough, dyspnea Gastrointestinal: Denies: abdominal pain, nausea, vomiting Genitourinary: Denies: dysuria Chest Pain PMH - Past Medical History Medical history: Reports: cancer, COPD, hyperlipidemia, hypertension, other Surgical history: Reports: angioplasty/stent, appendectomy, cholecystectomy, hysterectomy, other Psychiatric history: Reports: no psych history AUDIT PARTNER history: Reports: no AUDIT PARTNER history - Social History Smoking Status: Current every day smoker Alcohol use: Reports: none Drug use: Reports: none Physical Exam - General Limitations: no limitations General appearance: alert - Head Head exam: normocephalic - Eye Eye exam: Present: EOMI - ENT ENT exam: mucous membranes moist - Neck Neck exam: Present: trachea midline - Chest Chest inspection: Present: symmetric chest wall rise - Respiratory Respiratory exam: Present: wheezes - Cardiovascular Cardiovascular exam: Present: regular rate, normal rhythm - Abdominal Exam Abdominal exam: Present: soft, Non-Tender. Absent: distention, guarding, rebound, rigidity - Extremities Exam Extremities exam: Present: normal capillary refill - Back Exam Back exam: Present: full ROM - Neurological Exam Neurological exam: Present: alert, oriented X3 - Psychiatric Psychiatric exam: Present: normal affect, normal mood - Skin Skin exam: Present: warm, dry, intact, normal color. Absent: rash Course Vital Signs Temperature 97.6 F 09/30/18 02:23 Pulse Rate 89 09/30/18 02:23 Respiratory Rate 18 09/30/18 02:23 Blood Pressure 180/89 09/30/18 02:23 O2 Sat by Pulse Oximetry 96 09/30/18 02:23 Temperature 97.6 F 09/30/18 02:23 Pulse Rate 91 09/30/18 04:56 Respiratory Rate 16 09/30/18 04:56 Blood Pressure 121/63 09/30/18 04:56 O2 Sat by Pulse Oximetry 95 09/30/18 04:56 Oxygen Delivery Oxygen Delivery Room Air Chest Pain - MDM Narrative Medical decision making narrative: 59-year-old female just emergency Department concern for chest pain. Also, she had wheezes on lung exam with recent URI type symptoms. Tio is a COPD exacerbation as well. DuoNeb's were provided as well as steroids. Patient not any evidence of pneumonia on chest x-ray. No Leukocytosis. Not having increasing sputum production. We will not give and hematocrit was at this time. In regards to chest pain, patient did not have any ischemic ST changes on her electrocardiogram. She already took aspirin prior to arrival. Gave him a nitroglycerin trial and this relieved her completely of her symptoms. Patient with a heart score 5, admitted to the hospitalist. - Lab Data Result diagrams: 10/02/18 04:57 10/02/18 04:57 Lab Results 09/30/18 09/30/18 09/30/18 Range/Units 02:40 02:40 02:40 WBC 8.1 (4.3-11.1) K/mcL RBC 5.22 H (3.82-4.97) M/mcL Hgb 14.6 (11.5-15.4) g/dL Hct 45.0 H (35.3-44.9) % MCV 86.2 (83.0-100.0) fL MCH 28.0 (28.0-33.3) pg MCHC 32.4 (31.6-35.5) g/dL RDW 15.7 H (11.5-14.5) % Plt Count 265 (140-400) K/mcL MPV 9.8 (9.4-12.4) fL Immature Gran % 0.5 (0-4) % Seg Neutrophils % 58.4 % Lymphocytes % 24.8 % Monocytes % 11.2 % Eosinophils % 3.6 % Basophils % 1.5 % Neutrophils # 4.7 (1.6-8.9) K/mcL Lymphocytes # 2.0 (0.6-4.6) K/mcL Monocytes # 0.9 (0.0-1.3) K/mcL Eosinophils # 0.3 (0.0-0.6) K/mcL Basophils # 0.1 (0.0-0.2) K/mcL Sodium 139 (136-145) mEq/L Potassium 3.8 (3.5-5.1) mEq/L Chloride 107 (98-107) mEq/L Carbon Dioxide 24 (23-29) mEq/L BUN 7 L (8-23) mg/dL Creatinine 0.56 L (0.60-1.20) mg/dL Est GFR ( Amer) > 60 (> 60) Est GFR (Non-Af Amer) > 60 (> 60) BUN/Creatinine Ratio 13 (6-26) Glucose 125 H (70-105) mg/dL Calculated Osmolality 287 (280-300) Calcium 8.9 (8.6-10.3) mg/dL Troponin I < 0.03 (< 0.04) ng/mL Heart Score - Score History: Moderately Suspicious EKG: Normal Age: Greater than 65 Risk Factors: Equal/Greater than 3 risk factor or history of atherosclerotic disease Troponin: Less than normal limit HEART Score Total: 5 Attestation Statement - Attestation Attestation: Dr. Louie note: Patient was seen in conjunction with emergency medicine resident Dr. Ahmet Forbes. Please see his charting for complete documentation. I spent [id number] time with the patient and I agree with patient's treatment and disposition. Chest pain-free upon arrival. EKG and troponin results of been oracio delgadillo. Admitted in stable condition to the hospitalist.
[2018-09-30] MEDS ORDERED: Ipratropium/Albuterol Neb 3 ML IH ONE (02:45)
[2018-09-30] MEDS ORDERED: Aspirin 81 MG TAB.CHEW PO ONE (02:45)
[2018-09-30 02:52] LABS: Basophils # 0.1 K/mcL (0.0-0.2); Basophils % 1.5 %; Eosinophils # 0.3 K/mcL (0.0-0.6); Eosinophils % 3.6 %; Hemoglobin 14.6 g/dL (11.5-15.4); Immature Granulocytes % 0.5 % (0-4); Lymphocytes % 24.8 %; Mean Corpuscular HGB Conc 32.4 g/dL (31.6-35.5); Mean Corpuscular Volume 86.2 fL (83.0-100.0); Mean Platelet Volume 9.8 fL (9.4-12.4); Monocytes # 0.9 K/mcL (0.0-1.3); Monocytes % 11.2 %; Neutrophils # 4.7 K/mcL (1.6-8.9); Platelet Count 265 K/mcL (140-400); Red Blood Count 5.22 M/mcL (3.82-4.97); Red Cell Distribution Width 15.7 % (11.5-14.5); Segmented Neutrophils % 58.4 %
[2018-09-30 03:12] LABS: BUN/Creatinine Ratio 13 (6-26); Blood Urea Nitrogen 7 mg/dL (8-23); Calcium 8.9 mg/dL (8.6-10.3); Carbon Dioxide 24 mEq/L (23-29); Chloride 107 mEq/L (98-107); Glucose 125 mg/dL (70-105); Osmolality,Calculated 287 (280-300); Potassium 3.8 mEq/L (3.5-5.1); Sodium 139 mEq/L (136-145); eGFR For Non-African Americans > 60 (> 60)
[2018-09-30] MEDS ORDERED: Nitroglycerin 0.4 MG TAB.SUBL SL PRN (04:43)
[2018-09-30] MEDS ORDERED: Naloxone 0.4 MG/ML INJ IVP PRN (08:20)
--- NOTE | 2018-09-30 08:23 | Internal Med History&Physical ---
Date of Encounter: 09/30/18 Time of Encounter: 07:00 Internal Medicine - H&P: HPI Chief complaint: chest pain Admitted From: Home Plans for Post Hospital Care: Home History of present illness: Ms. Reyes is a 67 year old female with history of lung cancer s/p lobectomy, COPD on as needed oxygen at home and hypertension presented to the emergency department with complaint of chest pain. She reports that she was sleeping and suddenly woke up due to a left sided chest pain. Her chest pain started suddenly, sharp in nature, aggravated with deep breathing, nonradiating and was constant. She cannot recall alleviating or aggravating factors. She decided to come to the emergency department since she has never had pain like this before, while in the emergency department she was given 2 nitroglycerin tablets with res olution of her chest pain. Her chest pain was also associated with shortness of breath, she denies leg swelling, PND or orthopnea. She denies prolonged immobilization, calf tenderness or discoloration. She denies cough however she does have on and off wheezing which improved with steroids and nebulizer treatments that she received in the emergency department. She denies upper respiratory tract infections recently, has had no sick contacts, denies fever, chills, nausea, vomiting, diarrhea. Past Med Surg Social Fam HX - Past Medical History Medical history: cancer, COPD, hyperlipidemia, hypertension, other Additional medical history: lung cancer Psychiatric history: no psych history - Past Surgical History Surgical History: angioplasty/stent, appendectomy, cholecystectomy, hysterectomy, other Additional surgical history: lobectomy, cardiac stents x2 - Social History Smoking Status: Current every day smoker Packs per day: 1 Smokeless Tobacco Status: No Alcohol use: none Drug use: none - Family History Father Family Member Ethnicity: Non- Living Status: Hx Family Cancer: Yes (Lymphoma) Sister Family Member Ethnicity: Non- Living Status: Still Living Hx Family Respiratory Disorders: Yes (COPD) Mother Adopted: No Family Member Ethnicity: Non- Living Status: Hx Family Cardiac Disorders: No Hx Family Respiratory Disorders: Yes (COPD) Hx Family Cancer: Yes (Lymphoma) Hx Family GI Disorders: No Hx Family Endocrine Disorder: No Hx Family Neuromuscular Disorders: No Hx Family Neurologic Disorders: No Hx Family HEENT Disorders: No Hx Family Autoimmune Disorders: No Internal Medicine - H&P: Meds Albuterol Sulfate [Albuterol Inhaler] 2 puff IH Q4H PRN 04/11/18 [History] Aspirin 325 mg PO DAILY 04/11/18 [History] Budesonide/Formoterol 160/4.5 [Symbicort 160/4.5] 2 puff IH BID 04/11/18 [History] Isosorbide MONOnitrate [Isosorbide Mononitrate ER] 30 mg PO DAILY 04/11/18 [History] Metoprolol [Lopressor] 25 mg PO BID 04/11/18 [History] Tiotropium [place] [Spiriva Respimat] 2 puff IH DAILY 04/11/18 [History] Allergy/AdvReac Type Severity Reaction Status Date / Time cephalexin [From Keflex] Allergy Hives Verified 02/25/18 11:07 chlorpheniramine Allergy Hives Verified 02/25/18 11:07 [From Ornade] codeine Allergy Chest Pain Verified 02/25/18 11:07 Penicillins Allergy Hives Verified 02/25/18 11:07 phenylpropanolamine Allergy Hives Verified 02/25/18 11:07 [From Ornade] Fyllmlw-Zcr-Ogb Reductase AdvReac Muscle Pain Verified 02/25/18 11:07 Inhibitor All Systems PM: A 10-system review of systems was performed and is negative for pertinent findings except as documented above in the HPI. - Constitutional Vitals: Temp Pulse Resp BP Pulse Ox 97.8 F 91 16 134/84 95 09/30/18 07:04 09/30/18 07:04 09/30/18 07:04 09/30/18 07:04 09/30/18 07:04 Exam: General: Patient is alert, oriented, no acute distress, speaks in full sentences Head: atraumatic, normocephalic, Eye: normal appearance, PERRL, no scleral icterus, no conjunctival injection ENT: mucous membranes moist, normal external ear exam Neck: normal inspection, trachea midline, full ROM, no carotid bruits Chest: normal inspection, symmetric chest rise Respiratory: Good respiratory effort. Decreased breath sounds bilaterally, occa sional wheezing in the anterior chest, no crackles Cardiovascular: Regular rate and rhythm. s1 and s2 No clicks, rubs, gallops, or murmors. Abdomen: Bowel sounds present normoactive x-4 quadrants. Abdomen is soft, nondistended. no Epigastric tenderness. No guarding or rebound. No organomegaly noted, obese musculoskeletal: Spontaneously moving all extremities. no edema, no calf tenderness, discoloration Skin: warm, dry, intact. Neuro: Alert and oriented x4. No focal deficit Psych: Patient's affect is normal Internal Med - H&P Results - Labs CBC & Chem 7: 09/30/18 02:40 09/30/18 02:40 Labs: Short CBC 09/30/18 Range/Units 02:40 WBC 8.1 (4.3-11.1) K/mcL Hgb 14.6 (11.5-15.4) g/dL Hct 45.0 H (35.3-44.9) % Plt Count 265 (140-400) K/mcL Neutrophils # 4.7 (1.6-8.9) K/mcL BMP 09/30/18 02:40 Sodium 139 Potassium 3.8 Chloride 107 Carbon Dioxide 24 BUN 7 L Creatinine 0.56 L Glucose 125 H Calcium 8.9 Cardiac Enzymes 09/30/18 Range/Units 02:40 Troponin I < 0.03 (< 0.04) ng/mL - EKG Data -: EKG Interpreted by Myself EKG shows normal: sinus rhythm (QTC 370) - Impressions ITS Impressions Chest X-Ray 09/30/18 02:26 IMPRESSION: 1. Stable chest x-ray with no active pulmonary disease. 2. Bibasilar scarring and right pleural thickening. D/ / Romain Reynoso MD / Romain Reynoso MD Interpreting Provider: Romain Reynoso MD - Assessment and Plan (1) Chest pain Current Visit: No Status: Ruled-out Assessment and plan: seems atypical ( reproduced with deep breathing) will rule out ACS Doubt PE wells criteria is 0 continue with home ASA, IMDUR and BB lipid panel in AM - consider starting statins troponins Q6H along with EKG telemetry monitoring echocardiogram NTG Q5M PRN for chest pain consider stress test Qualifiers: Chest pain type: chest pain on breathing Qualified Code(s): R07.1 - Chest pain on breathing; R07.81 - Pleurodynia (2) Acute exacerbation of chronic obstructive pulmonary disease (COPD) Current Visit: Yes Status: Acute Assessment and plan: started on solumedrol 40 mg Q8H continue with home inhalers Duo-nebs q6H PRN sputum cx influenza urine antigens levaquin oxygen via nasal cannula to keep sats >92% (3) HLD (hyperlipidemia) Current Visit: No Status: Chronic Assessment and plan: lipid panel in AM not on statins- consider starting based on lipid panel Qualifiers: Hyperlipidemia type: unspecified Qualified Code(s): E78.5 - Hyperlipidemia, unspecified (4) HTN (hypertension) Current Visit: No Status: Chronic Assessment and plan: continue home medications Qualifiers: Hypertension type: essential hypertension Qualified Code(s): I10 - Essential (primary) hypertension (5) Current smoker Current Visit: No Status: Chronic Assessment and plan: was counseled (6) DVT prophylaxis Current Visit: No Status: Acute Assessment and plan: heparin sc - Time Spent With Patient Total time spent is greater than 50% in coordination of care (as documented) at patient's floor/unit and/or counseling patient: Greater than 35 minutes
[2018-09-30] MEDS: Levofloxacin 750 MG/150 ML 750 MG/150 ML BAG IVPB SCH (10:24)
[2018-09-30 10:25] LABS: Bilirubin,Urine Negative (Negative); Blood,Urine Trace (Negative); Clarity,Urine Clear (Clear); Color,Urine Yellow (Yellow); Glucose,Urine (UA) Normal (Normal); Ketones,Urine Negative (Negative); Leukocyte Esterase,Urine Negative (Negative); Nitrite,Urine Negative (Negative); PH,Urine 7.5 pH Units (5.0-8.0); Protein,Urine Negative (Neg-Trace); Specific Gravity,Urine 1.005 (1.010-1.025); Urobilinogen,Urine Normal (Normal)
[2018-09-30] MEDS: Aspirin 325 MG TABLET PO SCH (10:25)
[2018-09-30] MEDS: MethylPREDNISolone 40 MG/ML VIAL IVP SCH ×2 (10:25→16:01)
[2018-09-30] MEDS: Isosorbide MONOnitrate (24 HR) 30 MG TAB.ER.24H PO SCH (10:25)
[2018-09-30 10:27] LABS: Bacteria,Urine None Seen per hpf (None-Few); Hyaline Casts,Urine None Seen per lpf (None-Few); RBC,Urine 15-30 per hpf (0-3); Squamous Epithelial Cell,Urine Many per lpf (None-Few); WBC,Urine 0-3 per hpf (0-3)
[2018-09-30] MEDS: Budesonide/Formoterol 160/4.5 1 PUFF INH IH SCH ×2 (10:28→19:43)
[2018-09-30 10:31] LABS: Amphetamine Screen,Urine Negative ng/mL (Cutoff=1000); Barbiturate Screen,Urine Negative ng/mL (Cutoff=200); Benzodiazepines Screen,Urine Negative ng/mL (Cutoff=200); Cannabinoid Screen,Urine Negative ng/mL (Cutoff = 50); Cocaine Screen,Urine Negative ng/mL (Cutoff= 300); Opiate Screen,Urine Negative ng/mL (Cutoff=300); Phencyclidine Screen,Urine Negative ng/mL (Cutoff=25)
[2018-09-30] MEDS: Ipratropium/Albuterol Neb 3 ML IH PRN (10:31)
[2018-09-30] MEDS: Tiotropium 18 MCG inhalation IH SCH (10:32)
--- NOTE | 2018-09-30 11:09 | Electrocardiograph Report ---
[address] [place], [place] [address] Test Date: 2018-09-30 Pat Name: Farideh Reyes Department: EXAM2 Room: 3B37 Gender: F Operator Vacuum: : 1950 Requested By: Ahmet Garcia Order Number: [id number] Reading MD: Tammy Abbott Measurements Intervals [place] Rate: 89 P: 71 MD: 153 QRS: 100 QRSD: 83 T: 64 QT: 370 QTc: 451 Interpretive Statements Sinus rhythm Atrial premature complex Right axis deviation Electronically Signed On 09-30-2018 11:08:14 EDT by Tammy Abbott
[2018-09-30] MEDS: *HR* Heparin 5,000 UNIT/ML VIAL SQ SCH ×2 (16:01→21:20)
[2018-10-01] MEDS: MethylPREDNISolone 40 MG/ML VIAL IVP SCH ×4 (00:48→23:32)
[2018-10-01 02:47] LABS: Basophils % 0.2 %; Hematocrit 43.6 % (35.3-44.9); Hemoglobin 13.7 g/dL (11.5-15.4); Immature Granulocytes % 1.1 % (0-4); Lymphocytes # 1.1 K/mcL (0.6-4.6); Lymphocytes % 11.4 %; Mean Corpuscular HGB Conc 31.4 g/dL (31.6-35.5); Mean Corpuscular Hemoglobin 27.6 pg (28.0-33.3); Mean Corpuscular Volume 87.9 fL (83.0-100.0); Mean Platelet Volume 10.2 fL (9.4-12.4); Monocytes # 0.8 K/mcL (0.0-1.3); Monocytes % 8.9 %; Neutrophils # 7.4 K/mcL (1.6-8.9); Platelet Count 254 K/mcL (140-400); Red Blood Count 4.96 M/mcL (3.82-4.97); Red Cell Distribution Width 15.7 % (11.5-14.5); Segmented Neutrophils % 78.4 %
[2018-10-01 03:13] LABS: BUN/Creatinine Ratio 21 (6-26); Blood Urea Nitrogen 11 mg/dL (8-23); Calcium 9.1 mg/dL (8.6-10.3); Carbon Dioxide 25 mEq/L (23-29); Chloride 105 mEq/L (98-107); Glucose 127 mg/dL (70-105); Osmolality,Calculated 287 (280-300); Potassium 4.2 mEq/L (3.5-5.1); Sodium 138 mEq/L (136-145); eGFR For Non-African Americans > 60 (> 60)
[2018-10-01] MEDS: *HR* Heparin 5,000 UNIT/ML VIAL SQ SCH ×3 (05:36→20:32)
--- NOTE | 2018-10-01 09:23 | Internal Med Progress Note ---
Hospitalist Progress Note - Encounter Date of Encounter: 10/01/18 Time of Encounter: 09:23 - Subjective Interval History: Patient is seen and examined in the room. She is stated that her chest pain has resolved. She reported that she still having shortness of breath and cough with white mucus. She denies fever, chills, or night sweats. - Exam Vitals: Temp Pulse Resp BP Pulse Ox 98.0 F 83 16 133/75 94 10/01/18 06:42 10/01/18 06:42 10/01/18 06:42 10/01/18 06:42 10/01/18 06:42 Exam: PHYSICAL EXAMINATION: GENERAL APPEARANCE: The patient is alert, oriented and in no acute distress. HEENT: Head is normocephalic. The sinuses are nontender. Pupils are equal and reactive. The nares are patent. Oropharynx clear without lesions. NECK: Supple without lymphadenopathy. HEART: Regular rate and rhythm. LUNGS: diffuse wheezes are heard. ABDOMEN: Soft, nontender, nondistended with good bowel sounds heard. Inguinal area is normal. EXTREMITIES: Without cyanosis, clubbing or edema. NEUROLOGICAL: Gross nonfocal. SKIN: Warm and dry without any rash. - Assessment and Plan (1) Chest pain Current Visit: Yes Status: Acute Assessment and Plan: seems atypical ( reproduced with deep breathing) will rule out ACS Doubt PE wells criteria is 0 continue with home ASA, IMDUR and BB lipid panel in AM - consider starting statins troponins Q6H along with EKG telemetry monitoring echocardiogram NTG Q5M PRN for chest pain consider stress test (2) Acute exacerbation of chronic obstructive pulmonary disease (COPD) Current Visit: Yes Status: Acute Assessment and Plan: started on solumedrol 40 mg Q8H continue with home inhalers Duo-nebs q6H PRN sputum cx influenza urine antigens levaquin oxygen via nasal cannula to keep sats >92% (3) Acute and chronic respiratory failure with hypoxia Current Visit: No Status: Chronic Assessment and Plan: Same as above. (4) HTN (hypertension) Current Visit: No Status: Chronic Assessment and Plan: BP well controlled currently, continue home medications (5) Current smoker Current Visit: No Status: Chronic Assessment and Plan: was counseled (6) HLD (hyperlipidemia) Current Visit: No Status: Chronic Assessment and Plan: not on statins- consider starting based on lipid panel. (7) DVT prophylaxis Current Visit: No Status: Acute Assessment and Plan: heparin sc - Time Spent with Patient Total time spent is greater than 50% in coordination of care (as documented) at patient's floor/unit and/or counseling patient: Greater than 35 minutes Plan of Care Discussed with: patient Internal Medicine: Result - Labs CBC & Chem 7: 10/01/18 01:52 10/01/18 01:52 Labs: Short CBC 10/01/18 Range/Units 01:52 WBC 9.5 (4.3-11.1) K/mcL Hgb 13.7 (11.5-15.4) g/dL Hct 43.6 (35.3-44.9) % Plt Count 254 (140-400) K/mcL Neutrophils # 7.4 (1.6-8.9) K/mcL BMP 10/01/18 01:52 Sodium 138 Potassium 4.2 Chloride 105 Carbon Dioxide 25 BUN 11 Creatinine 0.52 L Glucose 127 H Calcium 9.1 Cardiac Enzymes 09/30/18 09/30/18 09/30/18 Range/Units 08:45 14:45 20:32 Troponin I < 0.03 < 0.03 < 0.03 (< 0.04) ng/mL Urine 09/30/18 Range/Units 10:01 Urine Color Yellow (Yellow) Urine Clarity Clear (Clear) Urine pH 7.5 (5.0-8.0) pH Units Ur Specific [place] 1.005 L (1.010-1.025) Urine Protein Negative (Neg-Trace) mg/dL Urine Glucose (UA) Normal (Normal) mg/dL Consult Discharge Plan - Plan Referrals: NONE,PCP [Primary Care Provider] - (1) Chest pain Qualifiers: Chest pain type: chest pain on breathing Qualified Code(s): R07.1 - Chest pain on breathing; R07.81 - Pleurodynia (4) HTN (hypertension) Qualifiers: Hypertension type: essential hypertension Qualified Code(s): I10 - Essential (primary) hypertension (6) HLD (hyperlipidemia) Qualifiers: Hyperlipidemia type: unspecified Qualified Code(s): E78.5 - Hyperlipidemia, unspecified
[2018-10-01] MEDS: Levofloxacin 750 MG/150 ML 750 MG/150 ML BAG IVPB SCH (09:28)
[2018-10-01] MEDS: Isosorbide MONOnitrate (24 HR) 30 MG TAB.ER.24H PO SCH (09:29)
[2018-10-01] MEDS: Aspirin 325 MG TABLET PO SCH (09:29)
[2018-10-01] MEDS: Budesonide/Formoterol 160/4.5 1 PUFF INH IH SCH ×2 (10:31→19:46)
[2018-10-01] MEDS: Tiotropium 18 MCG inhalation IH SCH (10:32)
[2018-10-01] MEDS: Nicotine 14 MG PATCH.TD24 TD SCH (10:58)
[2018-10-01] MEDS: Ipratropium/Albuterol Neb 3 ML IH PRN (19:46)
[2018-10-02] MEDS: *HR* Heparin 5,000 UNIT/ML VIAL SQ SCH (05:13)
[2018-10-02 05:30] LABS: Basophils % 0.1 %; Eosinophils % 0.1 %; Hematocrit 46.1 % (35.3-44.9); Hemoglobin 14.4 g/dL (11.5-15.4); Immature Granulocytes % 0.6 % (0-4); Lymphocytes # 0.8 K/mcL (0.6-4.6); Lymphocytes % 6.3 %; Mean Corpuscular HGB Conc 31.2 g/dL (31.6-35.5); Mean Corpuscular Hemoglobin 27.6 pg (28.0-33.3); Mean Corpuscular Volume 88.3 fL (83.0-100.0); Mean Platelet Volume 10.4 fL (9.4-12.4); Monocytes # 0.5 K/mcL (0.0-1.3); Monocytes % 3.9 %; Neutrophils # 11.4 K/mcL (1.6-8.9); Platelet Count 280 K/mcL (140-400); Red Blood Count 5.22 M/mcL (3.82-4.97); Red Cell Distribution Width 16.2 % (11.5-14.5)
[2018-10-02 05:50] LABS: Chol/HDL Ratio 5.5 (0-4.9)
[2018-10-02 05:51] LABS: BUN/Creatinine Ratio 23 (6-26); Blood Urea Nitrogen 12 mg/dL (8-23); Calcium 9.2 mg/dL (8.6-10.3); Carbon Dioxide 26 mEq/L (23-29); Chloride 106 mEq/L (98-107); Glucose 136 mg/dL (70-105); Osmolality,Calculated 294 (280-300); Potassium 3.9 mEq/L (3.5-5.1); Sodium 141 mEq/L (136-145); eGFR For Non-African Americans > 60 (> 60)
[2018-10-02] MEDS ORDERED: Regadenoson 0.4 MG/5 ML SYRINGE IVP ONE (06:23)
[2018-10-02] MEDS: MethylPREDNISolone 40 MG/ML VIAL IVP SCH (08:56)
[2018-10-02] MEDS ORDERED: Fenofibrate 54 MG TABLET PO SCH (09:00)
[2018-10-02] MEDS ORDERED: Doxycycline 100 MG CAPSULE PO SCH (09:00)
[2018-10-02] MEDS: Isosorbide MONOnitrate (24 HR) 30 MG TAB.ER.24H PO SCH (09:08)
[2018-10-02] MEDS: Aspirin 325 MG TABLET PO SCH (09:08)
[2018-10-02] MEDS: Nicotine 14 MG PATCH.TD24 TD SCH (09:09)
[2018-10-02 09:54] LABS: Estimated Average Glucose 148 mg/dl; Hemoglobin A1C 6.8 %
[2018-10-02] MEDS: Budesonide/Formoterol 160/4.5 1 PUFF INH IH SCH (09:56)
[2018-10-02] MEDS: Tiotropium 18 MCG inhalation IH SCH (09:56)
[2018-10-02 11:53] VITALS: BP 143/78
--- NOTE | 2018-10-02 12:14 | Discharge Summary ---
- NOTES TO OUTPATIENT PROVIDER Notes to Outpatient Provider: f/u with PCP within a week. f/u with cardiology within a week. Orders not resulted at time of discharge: Pending orders 09/30/18 08:24 Culture,Sputum with Gram Stain [RM] Stat 10/01/18 09:22 NM thierry perf SPECT multi [NM] Routine Date of Encounter: 10/02/18 Time of Encounter: 12:11 - Discharge Diagnosis (1) Chest pain Priority: Primary Status: Acute Qualifiers: Chest pain type: chest pain on breathing Qualified Code(s): R07.1 - Chest pain on breathing; R07.81 - Pleurodynia (2) Acute exacerbation of chronic obstructive pulmonary disease (COPD) Priority: Primary Status: Acute (3) Acute and chronic respiratory failure with hypoxia Priority: Primary Status: Chronic (4) HTN (hypertension) Priority: Secondary Status: Chronic Qualifiers: Hypertension type: essential hypertension Qualified Code(s): I10 - Essential (primary) hypertension (5) Current smoker Priority: Secondary Status: Chronic (6) HLD (hyperlipidemia) Priority: Secondary Status: Chronic Qualifiers: Hyperlipidemia type: unspecified Qualified Code(s): E78.5 - Hyperlipidemia, unspecified (7) DVT prophylaxis Priority: Primary Status: Acute Hospital course: Ms. Reyes is a 67 year old female with history of lung cancer s/p lobectomy, COPD on as needed oxygen at home and hypertension presented to the emergency department with complaint of chest pain. She reports that she was sleeping and suddenly woke up due to a left sided chest pain. Her chest pain started suddenly, sharp in nature, aggravated with deep breathing, nonradiating and was constant. She cannot recall alleviating or aggravating factors. She decided to come to the emergency department since she has never had pain like this before, while in the emergency department she was given 2 nitroglycerin tablets with resolution of her chest pain. Her chest pain was also associated with shortness of breath, she denies leg swelling, PND or orthopnea. She denies prolonged immobilization, calf tenderness or discoloration. She denies cough however she does have on and off wheezing which improved with steroids and nebulizer treatments that she received in the emergency department. Further cardiac workup revealed negative serial troponin, unremarkable EKG without ST-T elevations/depression. An Echocardiogram was also performed which revealed ejec tion fraction 60-65%, normal LV chamber size, wall thickness, and a function, normal right ventricular structure and function, mild to moderate pulmonary regurgitation, and mild mitral and tricuspid valve regurgitation. The stress nuclear test was also negative for ischemia or infarct. On the discharge today, patient is free from chest pain, her vital signs were stable, and labs were unremarkable. Patient is discharged home today, TriCor was prescribed because of elevated cholesterol level, and patient does not tolerate statins. She will follow-up with PCP and cardiology as scheduled. Discharge discussed with: patient Time spent discussing smoking cessation with patient: more than 10 minutes - Time Spent with Patient Total time spent providing and/or coordinating discharge services: Time spent: Greater than 30 minutes - Discharge Medications Prescriptions: New Doxycycline 100 mg PO BID #14 capsule Nitroglycerin 0.4 mg SL Q5MPRN PRN #15 tab.subl PRN Reason: Chest Pain Fenofibrate [Tricor] 54 mg PO DAILY #30 tablet Continued Aspirin 325 mg PO DAILY Tiotropium [place] [Spiriva Respimat] 2 puff IH DAILY Metoprolol [Lopressor] 25 mg PO BID Isosorbide MONOnitrate [Isosorbide Mononitrate ER] 30 mg PO DAILY Budesonide/Formoterol 160/4.5 [Symbicort 160/4.5] 2 puff IH BID Albuterol Sulfate [Albuterol Inhaler] 2 puff IH Q4H PRN PRN Reason: Shortness Of Breath Home Medications: Aspirin 325 mg PO DAILY 04/11/18 [History] Budesonide/Formoterol 160/4.5 [Symbicort 160/4.5] 2 puff IH BID 04/11/18 [History] Isosorbide MONOnitrate [Isosorbide Mononitrate ER] 30 mg PO DAILY 04/11/18 [History] Metoprolol [Lopressor] 25 mg PO BID 04/11/18 [History] Tiotropium [place] [Spiriva Respimat] 2 puff IH DAILY 04/11/18 [History] Albuterol Sulfate [Albuterol Inhaler] 2 puff IH Q4H PRN 09/30/18 [History] Doxycycline 100 mg PO BID #14 capsule 10/02/18 [Rx] Fenofibrate [Tricor] 54 mg PO DAILY #30 tablet 10/02/18 [Rx] Nitroglycerin 0.4 mg SL Q5MPRN PRN #15 tab.subl 10/02/18 [Rx] Allergies/Adverse Reactions: Allergy/AdvReac Type Severity Reaction Status Date / Time cephalexin [From Keflex] Allergy Hives Verified 02/25/18 11:07 chlorpheniramine Allergy Hives Verified 02/25/18 11:07 [From Ornade] codeine Allergy Chest Pain Verified 02/25/18 11:07 Penicillins Allergy Hives Verified 02/25/18 11:07 phenylpropanolamine Allergy Hives Verified 02/25/18 11:07 [From Ornade] Eofbhgq-Zgv-Cdu Reductase AdvReac Muscle Pain Verified 02/25/18 11:07 Inhibitor Date of admission: 09/30/18 06:25 Primary care physician: PCP NONE Consults: 10/02/18 08:29 Consult to Nurse Navigator [CONS] Routine Comment: COPD Anticipated date of discharge: 10/02/18 - Constitutional Vitals: Temp Pulse Resp BP Pulse Ox 97.6 F 73 18 143/78 93 10/02/18 11:52 10/02/18 11:52 10/02/18 11:52 10/02/18 11:52 10/02/18 11:52 General appearance: Present: A&O X 3 Exam: PHYSICAL EXAMINATION: GENERAL APPEARANCE: The patient is alert, oriented and in no acute distress. HEENT: Head is normocephalic. The sinuses are nontender. Pupils are equal and reactive. The nares are patent. Oropharynx clear without lesions. NECK: Supple without lymphadenopathy. HEART: Regular rate and rhythm. LUNGS: diffuse wheezes are heard. ABDOMEN: Soft, nontender, nondistended with good bowel sounds heard. Inguinal area is normal. EXTREMITIES: Without cyanosis, clubbing or edema. NEUROLOGICAL: Gross nonfocal. SKIN: Warm and dry without any rash. - Patient Status Disposition: Home, Self-Care Condition: Good Functional capacity at discharge: independent ambulation Overall status at discharge: patient is progressing back to baseline - Discharge Instructions Follow Up With: Eagle Olivares MD [Partnered Physician] - 10/09/18 2:15 pm Forms: ED Satisfaction Letter - Diet and Activity Activity: increase activity as tolerated Diet: advance to your usual diet
== END 2018-10-02 13:03 | disposition home or self-care (01) ==
LOC: EMEROOARM 02:17 → 3BNU 02:17
PROVIDERS: ADMIT Family Medicine; ATTEND Family Medicine

== ENCOUNTER 2019-03-07 11:59 | Observation (INO) ==
[2019-03-07] MEDS ORDERED: Azithromycin 500 MG in 0.9 % Sodium Chloride 250 ML IVPB ONE (12:14)
[2019-03-07] MEDS ORDERED: Ipratropium/Albuterol Neb 3 ML IH ONE (12:17)
[2019-03-07] MEDS ORDERED: methylPREDNISolone 125 MG/2 ML VIAL IVP ONE (12:17)
[2019-03-07 12:35] LABS: Basophils # 0.1 K/mcL (0.0-0.2); Basophils % 0.4 %; Eosinophils % 0.4 %; Hematocrit 44.6 % (35.3-44.9); Hemoglobin 14.3 g/dL (11.5-15.4); Immature Granulocytes % 0.9 % (0-4); Lymphocytes # 1.8 K/mcL (0.6-4.6); Lymphocytes % 15.9 %; Mean Corpuscular HGB Conc 32.1 g/dL (31.6-35.5); Mean Corpuscular Hemoglobin 27.7 pg (28.0-33.3); Mean Corpuscular Volume 86.4 fL (83.0-100.0); Mean Platelet Volume 9.7 fL (9.4-12.4); Monocytes # 0.7 K/mcL (0.0-1.3); Monocytes % 5.9 %; Neutrophils # 8.6 K/mcL (1.6-8.9); Platelet Count 379 K/mcL (140-400); Red Blood Count 5.16 M/mcL (3.82-4.97); Red Cell Distribution Width 14.7 % (11.5-14.5); Segmented Neutrophils % 76.5 %; White Blood Count 11.2 K/mcL (4.3-11.1)
[2019-03-07 12:37] LABS: Prothrombin Time 11.3 Seconds (9.4-12.1)
[2019-03-07 12:40] LABS: Activated Partial Thrombo Time 28.7 Seconds (26.0-36.0)
[2019-03-07] MEDS: 0.9 % Sodium Chloride 1,000 ML IVC SCH ×2 (12:48→13:56)
[2019-03-07 12:51] LABS: Bilirubin,Urine Negative (Negative); Blood,Urine Negative (Negative); Clarity,Urine Clear (Clear); Color,Urine Yellow (Yellow); Glucose,Urine (UA) Normal (Normal); Ketones,Urine Negative (Negative); Leukocyte Esterase,Urine Negative (Negative); Nitrite,Urine Negative (Negative); PH,Urine 6.5 pH Units (5.0-8.0); Protein,Urine Trace mg/dL (Neg-Trace); Specific Gravity,Urine 1.017 (1.010-1.025); Urobilinogen,Urine Normal (Normal)
[2019-03-07 12:53] LABS: Alanine Aminotransferase 27 Units/L (7-52); Albumin 3.8 g/dL (3.5-5.7); Albumin/Globulin Ratio 1.2 (1.1-2.2); Alkaline Phosphatase 81 Units/L (34-104); Aspartate Amino Transferase 25 Units/L (13-39); BUN/Creatinine Ratio 13 (6-26); Bilirubin,Direct 0.1 mg/dL (0.0-0.2); Bilirubin,Indirect 0.2 mg/dL (0.0-1.2); Bilirubin,Total 0.3 mg/dL (0.3-1.0); Blood Urea Nitrogen 7 mg/dL (8-23); Calcium 9.2 mg/dL (8.6-10.3); Carbon Dioxide 26 mEq/L (23-29); Chloride 100 mEq/L (98-107); Globulin 3.1 g/dL (2.4-3.5); Glucose 130 mg/dL (70-105); Magnesium 1.9 mg/dL (1.6-2.6); Osmolality,Calculated 280 (280-300); Phosphorous 2.1 mg/dL (2.7-4.5); Potassium 3.5 mEq/L (3.5-5.1); Sodium 135 mEq/L (136-145); Total Protein 6.9 g/dL (6.4-8.9); Troponin I 0.03 ng/mL (< 0.04); eGFR For African Americans > 60 (> 60); eGFR For Non-African Americans > 60 (> 60)
[2019-03-07] MEDS ORDERED: *HR* LORazepam 2 MG/ML VIAL IVP ONE ×2 (13:36→21:06)
[2019-03-07] MEDS: levoFLOXacin 750 MG/150 ML 750 MG/150 ML BAG IVPB ONE ×2 (13:57→14:47)
[2019-03-07] MEDS ORDERED: Ondansetron ODT 4 MG TAB.RAPDIS SL PRN (15:38)
[2019-03-07] MEDS ORDERED: Naloxone 0.4 MG/ML INJ IVP PRN (15:38)
[2019-03-07] MEDS ORDERED: Acetaminophen 325 MG TABLET PO PRN (15:38)
[2019-03-07] MEDS ORDERED: Albuterol 2.5 MG/3 ML NEBULIZER IH PRN (17:49)
[2019-03-07] MEDS: Budesonide/Formoterol 160/4.5 1 PUFF INH IH SCH (19:37)
[2019-03-07] MEDS: Ipratropium/Albuterol Neb 3 ML IH SCH ×2 (19:37→23:27)
[2019-03-07] MEDS ORDERED: Ipratropium/Albuterol Neb 3 ML IH SCH (20:00)
[2019-03-07] MEDS ORDERED: Albuterol 2.5 MG/3 ML NEBULIZER IH SCH (20:00)
[2019-03-07] MEDS ORDERED: *HR* LORazepam 2 MG/ML VIAL ONE (21:25)
[2019-03-08] MEDS: Ipratropium/Albuterol Neb 3 ML IH SCH ×6 (03:51→23:04)
[2019-03-08 04:30] LABS: Basophils % 0.3 %; Hematocrit 39.4 % (35.3-44.9); Hemoglobin 12.4 g/dL (11.5-15.4); Immature Granulocytes % 1.3 % (0-4); Lymphocytes # 0.9 K/mcL (0.6-4.6); Lymphocytes % 11.6 %; Mean Corpuscular HGB Conc 31.5 g/dL (31.6-35.5); Mean Corpuscular Hemoglobin 28.2 pg (28.0-33.3); Mean Corpuscular Volume 89.7 fL (83.0-100.0); Mean Platelet Volume 10.1 fL (9.4-12.4); Monocytes # 0.7 K/mcL (0.0-1.3); Monocytes % 8.7 %; Platelet Count 321 K/mcL (140-400); Red Blood Count 4.39 M/mcL (3.82-4.97); Red Cell Distribution Width 15.1 % (11.5-14.5); Segmented Neutrophils % 78.1 %; White Blood Count 7.6 K/mcL (4.3-11.1)
[2019-03-08 04:37] LABS: BUN/Creatinine Ratio 15 (6-26); Blood Urea Nitrogen 7 mg/dL (8-23); Calcium 8.6 mg/dL (8.6-10.3); Carbon Dioxide 26 mEq/L (23-29); Chloride 108 mEq/L (98-107); Glucose 124 mg/dL (70-105); Osmolality,Calculated 285 (280-300); Potassium 4.5 mEq/L (3.5-5.1); Sodium 138 mEq/L (136-145); eGFR For African Americans > 60 (> 60); eGFR For Non-African Americans > 60 (> 60)
[2019-03-08] MEDS: Budesonide/Formoterol 160/4.5 1 PUFF INH IH SCH ×2 (07:24→20:21)
[2019-03-08] MEDS: Tiotropium 18 MCG inhalation IH SCH (07:24)
[2019-03-08] MEDS: Fenofibrate 54 MG TABLET PO SCH (08:10)
[2019-03-08] MEDS: Isosorbide MONOnitrate (24 HR) 30 MG TAB.ER.24H PO SCH (08:10)
[2019-03-08] MEDS: levoFLOXacin 750 MG/150 ML 750 MG/150 ML BAG IVPB SCH (08:10)
[2019-03-08] MEDS: Aspirin 325 MG TABLET PO SCH (08:10)
[2019-03-08] MEDS: *HR* Enoxaparin 40 MG/0.4 ML SYRINGE SQ SCH (08:10)
[2019-03-08] MEDS ORDERED: NON-FORMULARY MEDICATION 1 EACH EACH (Tiotropium Bromide [Spiriva Respimat] 2 PUFF) IH SCH (09:00)
[2019-03-08] MEDS: Acetylcysteine 10% 2 ML INHSOL IH SCH ×2 (15:48→20:21)
[2019-03-08] MEDS ORDERED: *HR* LORazepam 0.5 MG TABLET PO PRN (17:26)
[2019-03-08] MEDS: MethylPREDNISolone 40 MG/ML VIAL IVP SCH (20:06)
[2019-03-09] MEDS: Ipratropium/Albuterol Neb 3 ML IH SCH ×3 (03:46→11:04)
[2019-03-09 04:38] LABS: Hematocrit 44.5 % (35.3-44.9); Hemoglobin 13.9 g/dL (11.5-15.4); Mean Corpuscular HGB Conc 31.2 g/dL (31.6-35.5); Mean Corpuscular Hemoglobin 27.7 pg (28.0-33.3); Mean Corpuscular Volume 88.8 fL (83.0-100.0); Mean Platelet Volume 9.8 fL (9.4-12.4); Platelet Count 380 K/mcL (140-400); Red Blood Count 5.01 M/mcL (3.82-4.97); Red Cell Distribution Width 14.9 % (11.5-14.5); White Blood Count 7.7 K/mcL (4.3-11.1)
[2019-03-09 05:08] LABS: BUN/Creatinine Ratio 16 (6-26); Blood Urea Nitrogen 9 mg/dL (8-23); Calcium 8.8 mg/dL (8.6-10.3); Carbon Dioxide 27 mEq/L (23-29); Chloride 104 mEq/L (98-107); Glucose 147 mg/dL (70-105); Osmolality,Calculated 287 (280-300); Potassium 4.4 mEq/L (3.5-5.1); Sodium 138 mEq/L (136-145); eGFR For African Americans > 60 (> 60); eGFR For Non-African Americans > 60 (> 60)
[2019-03-09] MEDS: MethylPREDNISolone 40 MG/ML VIAL IVP SCH (05:15)
[2019-03-09] MEDS: Acetylcysteine 10% 2 ML INHSOL IH SCH (06:36)
[2019-03-09] MEDS: Budesonide/Formoterol 160/4.5 1 PUFF INH IH SCH (07:07)
[2019-03-09] MEDS: Tiotropium 18 MCG inhalation IH SCH (07:08)
[2019-03-09 07:33] VITALS: BP 146/76
[2019-03-09] MEDS: Fenofibrate 54 MG TABLET PO SCH (09:35)
[2019-03-09] MEDS: *HR* Enoxaparin 40 MG/0.4 ML SYRINGE SQ SCH (09:36)
[2019-03-09] MEDS: Aspirin 325 MG TABLET PO SCH (09:36)
[2019-03-09] MEDS: levoFLOXacin 750 MG/150 ML 750 MG/150 ML BAG IVPB SCH (09:36)
[2019-03-09] MEDS: Isosorbide MONOnitrate (24 HR) 30 MG TAB.ER.24H PO SCH (09:36)
== END 2019-03-09 12:35 | disposition home or self-care (01) ==
LOC: EMEROOARM 11:59 → 2NENU 11:59 → SUATTDRO 13:56 → 2NENU 14:20
PROVIDERS: ADMIT Internal Medicine; ATTEND Nurse Practitioner Acute Care

== ENCOUNTER 2019-06-03 09:59 | Observation (INO) ==
[2019-06-03] MEDS ORDERED: Ipratropium/Albuterol Neb 3 ML IH ONE (10:05)
[2019-06-03] MEDS ORDERED: predniSONE 20 MG TABLET PO ONE (10:09)
[2019-06-03 10:19] LABS: Basophils # 0.1 K/mcL (0.0-0.2); Basophils % 0.7 %; Eosinophils # 0.1 K/mcL (0.0-0.6); Eosinophils % 0.5 %; Hematocrit 45.8 % (35.3-44.9); Immature Granulocytes % 0.5 % (0-4); Lymphocytes # 1.6 K/mcL (0.6-4.6); Lymphocytes % 11.1 %; Mean Corpuscular HGB Conc 32.8 g/dL (31.6-35.5); Mean Corpuscular Hemoglobin 28.1 pg (28.0-33.3); Mean Corpuscular Volume 85.9 fL (83.0-100.0); Mean Platelet Volume 9.4 fL (9.4-12.4); Monocytes # 1.1 K/mcL (0.0-1.3); Monocytes % 7.6 %; Neutrophils # 11.7 K/mcL (1.6-8.9); Platelet Count 293 K/mcL (140-400); Red Blood Count 5.33 M/mcL (3.82-4.97); Red Cell Distribution Width 15.4 % (11.5-14.5); Segmented Neutrophils % 79.6 %; White Blood Count 14.7 K/mcL (4.3-11.1)
[2019-06-03 10:44] LABS: BUN/Creatinine Ratio 11 (6-26); Blood Urea Nitrogen 6 mg/dL (8-23); Calcium 9.1 mg/dL (8.6-10.3); Carbon Dioxide 26 mEq/L (23-29); Chloride 102 mEq/L (98-107); Glucose 120 mg/dL (70-105); Osmolality,Calculated 283 (280-300); Potassium 3.9 mEq/L (3.5-5.1); Sodium 137 mEq/L (136-145); eGFR For African Americans > 60 (> 60); eGFR For Non-African Americans > 60 (> 60)
[2019-06-03 10:46] LABS: Troponin I < 0.03 ng/mL (< 0.04)
[2019-06-03] MEDS ORDERED: levoFLOXacin 500 MG/100 ML 500 MG/100 ML BAG IVPB ONE (11:52)
[2019-06-03] MEDS ORDERED: Albuterol 2.5 MG/3 ML NEBULIZER IH PRN (12:53)
[2019-06-03] MEDS ORDERED: *HR* LORazepam 0.5 MG TABLET PO PRN (13:12)
[2019-06-03] MEDS ORDERED: Menthol 9.1 MG LOZENGE PO PRN (13:16)
[2019-06-03] MEDS: Tiotropium 18 MCG inhalation IH SCH (14:24)
[2019-06-03] MEDS ORDERED: Isovue-370 500 ML BOTTLE IVP ONE (15:43)
[2019-06-03] MEDS: Ipratropium/Albuterol Neb 3 ML IH SCH ×3 (16:19→23:35)
[2019-06-03] MEDS: Budesonide/Formoterol 160/4.5 1 PUFF INH IH SCH (19:47)
[2019-06-04] MEDS: Ipratropium/Albuterol Neb 3 ML IH SCH ×2 (03:40→07:06)
[2019-06-04 06:37] LABS: Basophils # 0.1 K/mcL (0.0-0.2); Basophils % 0.5 %; Eosinophils % 0.2 %; Hematocrit 46.3 % (35.3-44.9); Hemoglobin 14.6 g/dL (11.5-15.4); Immature Granulocytes % 0.6 % (0-4); Lymphocytes # 1.6 K/mcL (0.6-4.6); Lymphocytes % 12.2 %; Mean Corpuscular HGB Conc 31.5 g/dL (31.6-35.5); Mean Corpuscular Hemoglobin 28.2 pg (28.0-33.3); Mean Corpuscular Volume 89.4 fL (83.0-100.0); Mean Platelet Volume 10.4 fL (9.4-12.4); Monocytes # 0.9 K/mcL (0.0-1.3); Monocytes % 6.9 %; Neutrophils # 10.1 K/mcL (1.6-8.9); Platelet Count 322 K/mcL (140-400); Red Blood Count 5.18 M/mcL (3.82-4.97); Red Cell Distribution Width 15.2 % (11.5-14.5); Segmented Neutrophils % 79.6 %; White Blood Count 12.7 K/mcL (4.3-11.1)
[2019-06-04 07:01] LABS: Alanine Aminotransferase 9 Units/L (7-52); Albumin 3.8 g/dL (3.5-5.7); Albumin/Globulin Ratio 1.3 (1.1-2.2); Alkaline Phosphatase 78 Units/L (34-104); Aspartate Amino Transferase 11 Units/L (13-39); BUN/Creatinine Ratio 14 (6-26); Bilirubin,Total 0.3 mg/dL (0.3-1.0); Blood Urea Nitrogen 8 mg/dL (8-23); Calcium 9.5 mg/dL (8.6-10.3); Carbon Dioxide 28 mEq/L (23-29); Chloride 102 mEq/L (98-107); Globulin 2.9 g/dL (2.4-3.5); Glucose 108 mg/dL (70-105); Osmolality,Calculated 289 (280-300); Potassium 3.6 mEq/L (3.5-5.1); Sodium 140 mEq/L (136-145); Total Protein 6.7 g/dL (6.4-8.9); eGFR For African Americans > 60 (> 60); eGFR For Non-African Americans > 60 (> 60)
[2019-06-04] MEDS: Budesonide/Formoterol 160/4.5 1 PUFF INH IH SCH (07:06)
[2019-06-04] MEDS: Tiotropium 18 MCG inhalation IH SCH (07:08)
[2019-06-04 07:12] VITALS: BP 117/68
[2019-06-04] MEDS ORDERED: Isosorbide MONOnitrate (24 HR) 30 MG TAB.ER.24H PO SCH (09:00)
[2019-06-04] MEDS ORDERED: Fluticasone Propionate Nasal 50 MCG/SPRAY BOTTLE NS SCH (09:00)
[2019-06-04] MEDS ORDERED: levoFLOXacin 500 MG TABLET PO SCH (09:00)
[2019-06-04] MEDS ORDERED: NON-FORMULARY MEDICATION 1 EACH EACH (Tiotropium Bromide [Spiriva Respimat] 2 PUFF) IH SCH (09:00)
[2019-06-04] MEDS ORDERED: predniSONE 20 MG TABLET PO SCH (09:00)
[2019-06-04] MEDS ORDERED: Aspirin 325 MG TABLET PO SCH (09:00)
== END 2019-06-04 11:13 | disposition home or self-care (01) ==
LOC: 3BNU 09:59 → EMEROOARM 09:59 → SUATTDRO 13:22 → 3BNU 16:00
PROVIDERS: ADMIT Family Medicine; ATTEND Internal Medicine

== ENCOUNTER 2019-07-19 09:51 | Observation (INO) ==
[2019-07-19] MEDS ORDERED: methylPREDNISolone 125 MG/2 ML VIAL IVP ONE (10:14)
[2019-07-19] MEDS ORDERED: Ipratropium/Albuterol Neb 3 ML IH ONE (10:14)
[2019-07-19] MEDS ORDERED: 0.9 % Sodium Chloride 1,000 ML IVC ONE (10:14)
[2019-07-19 10:51] LABS: Hematocrit 47.9 % (35.3-44.9); Hemoglobin 14.9 g/dL (11.5-15.4); Mean Corpuscular HGB Conc 31.1 g/dL (31.6-35.5); Mean Corpuscular Hemoglobin 27.4 pg (28.0-33.3); Mean Corpuscular Volume 88.2 fL (83.0-100.0); Mean Platelet Volume 9.5 fL (9.4-12.4); Platelet Count 239 K/mcL (140-400); Red Blood Count 5.43 M/mcL (3.82-4.97); Red Cell Distribution Width 15.9 % (11.5-14.5); White Blood Count 6.7 K/mcL (4.3-11.1)
[2019-07-19 11:14] LABS: BUN/Creatinine Ratio 16 (6-26); Blood Urea Nitrogen 10 mg/dL (8-23); Calcium 9.2 mg/dL (8.6-10.3); Carbon Dioxide 26 mEq/L (23-29); Chloride 104 mEq/L (98-107); Glucose 99 mg/dL (70-105); Osmolality,Calculated 281 (280-300); Potassium 3.9 mEq/L (3.5-5.1); Sodium 136 mEq/L (136-145); eGFR For African Americans > 60 (> 60); eGFR For Non-African Americans > 60 (> 60)
[2019-07-19 11:15] LABS: Troponin I < 0.03 ng/mL (< 0.04)
[2019-07-19] MEDS ORDERED: Cefepime HCl 1,000 MG in Water for inj. (sterile) 10 ML IVP STA (12:34)
[2019-07-19 13:47] LABS: VBG HCO3 23 mEq/L (21-27); VBG PCO2 39 mmHg (41-51); VBG PH 7.39 pH Units (7.32-7.42); VBG PO2 178 mmHg (25-50)
[2019-07-19] MEDS ORDERED: Naloxone 0.4 MG/ML INJ IVP PRN (14:07)
[2019-07-19] MEDS ORDERED: Ipratropium/Albuterol Neb 3 ML IH PRN (14:17)
[2019-07-19] MEDS ORDERED: 0.9 % Sodium Chloride 1,000 ML IVC SCH (15:15)
[2019-07-19 17:36] LABS: Adenovirus Not Detected (Not Detect); Bordetella Pertussis Not Detected (Not Detect); Chlamydophila pneumoniae Not Detected (Not Detect); Coronavirus 229E Not Detected (Not Detect); Coronavirus HKU1 Not Detected (Not Detect); Coronavirus NL63 Not Detected (Not Detect); Coronavirus OC43 Not Detected (Not Detect); Human Metapneumovirus Not Detected (Not Detect); Human Rhinovirus/Enterovirus Not Detected (Not Detect); Influenza B Not Detected (Not Detect); Mycoplasma pneumoniae Not Detected (Not Detect); Parainfluenza Virus 1 Not Detected (Not Detect); Parainfluenza Virus 2 Not Detected (Not Detect); Parainfluenza Virus 3 Not Detected (Not Detect); Parainfluenza Virus 4 Not Detected (Not Detect); Respiratory Syncytial Virus Not Detected (Not Detect)
[2019-07-19 17:39] LABS: Influenza A Subtype 2009 H1 DETECTED (Not Detect)
[2019-07-19] MEDS ORDERED: Azithromycin 250 MG TABLET PO ONE (17:47)
[2019-07-19] MEDS ORDERED: Fenofibrate 54 MG TABLET PO SCH (18:15)
[2019-07-19] MEDS: Levalbuterol Neb 1.25 MG/3 ML IH SCH (21:17)
[2019-07-19] MEDS: Budesonide/Formoterol 160/4.5 1 PUFF INH IH SCH (21:17)
[2019-07-20] MEDS: Levalbuterol Neb 1.25 MG/3 ML IH SCH ×4 (04:07→21:54)
[2019-07-20] MEDS: *HR* Heparin 5,000 UNIT/ML VIAL SQ SCH ×2 (05:41→16:43)
[2019-07-20 05:55] LABS: Basophils % 0.4 %; Hemoglobin 13.4 g/dL (11.5-15.4); Immature Granulocytes % 0.5 % (0-4); Lymphocytes # 0.8 K/mcL (0.6-4.6); Lymphocytes % 14.5 %; Mean Corpuscular HGB Conc 30.5 g/dL (31.6-35.5); Mean Corpuscular Hemoglobin 26.8 pg (28.0-33.3); Mean Platelet Volume 10.2 fL (9.4-12.4); Monocytes # 0.8 K/mcL (0.0-1.3); Monocytes % 13.4 %; Platelet Count 224 K/mcL (140-400); Red Cell Distribution Width 15.7 % (11.5-14.5); Segmented Neutrophils % 71.2 %; White Blood Count 5.7 K/mcL (4.3-11.1)
[2019-07-20 06:15] LABS: BUN/Creatinine Ratio 16 (6-26); Blood Urea Nitrogen 8 mg/dL (8-23); Calcium 8.5 mg/dL (8.6-10.3); Carbon Dioxide 25 mEq/L (23-29); Chloride 106 mEq/L (98-107); Glucose 89 mg/dL (70-105); Osmolality,Calculated 284 (280-300); Potassium 3.8 mEq/L (3.5-5.1); Sodium 138 mEq/L (136-145); eGFR For African Americans > 60 (> 60); eGFR For Non-African Americans > 60 (> 60)
[2019-07-20] MEDS: Budesonide/Formoterol 160/4.5 1 PUFF INH IH SCH ×2 (09:36→21:54)
[2019-07-20] MEDS: Tiotropium 18 MCG inhalation IH SCH (09:36)
[2019-07-20] MEDS: Azithromycin 250 MG TABLET PO SCH (09:43)
[2019-07-20] MEDS: Isosorbide MONOnitrate (24 HR) 30 MG TAB.ER.24H PO SCH (09:43)
[2019-07-20] MEDS: Aspirin 325 MG TABLET PO SCH (09:43)
[2019-07-20] MEDS: predniSONE 20 MG TABLET PO SCH (12:54)
[2019-07-21 02:48] LABS: Basophils % 0.7 %; Hematocrit 44.3 % (35.3-44.9); Hemoglobin 13.6 g/dL (11.5-15.4); Immature Granulocytes % 0.5 % (0-4); Lymphocytes # 0.8 K/mcL (0.6-4.6); Lymphocytes % 18.1 %; Mean Corpuscular HGB Conc 30.7 g/dL (31.6-35.5); Mean Corpuscular Hemoglobin 27.1 pg (28.0-33.3); Mean Corpuscular Volume 88.4 fL (83.0-100.0); Mean Platelet Volume 9.7 fL (9.4-12.4); Monocytes # 0.6 K/mcL (0.0-1.3); Monocytes % 13.7 %; Neutrophils # 2.9 K/mcL (1.6-8.9); Platelet Count 195 K/mcL (140-400); Red Blood Count 5.01 M/mcL (3.82-4.97); Red Cell Distribution Width 15.8 % (11.5-14.5); White Blood Count 4.3 K/mcL (4.3-11.1)
[2019-07-21 03:15] LABS: BUN/Creatinine Ratio 17 (6-26); Blood Urea Nitrogen 8 mg/dL (8-23); Calcium 8.6 mg/dL (8.6-10.3); Carbon Dioxide 29 mEq/L (23-29); Chloride 103 mEq/L (98-107); Glucose 95 mg/dL (70-105); Osmolality,Calculated 284 (280-300); Potassium 3.9 mEq/L (3.5-5.1); Sodium 138 mEq/L (136-145); eGFR For African Americans > 60 (> 60); eGFR For Non-African Americans > 60 (> 60)
[2019-07-21] MEDS: Levalbuterol Neb 1.25 MG/3 ML IH SCH ×2 (03:40→10:26)
[2019-07-21] MEDS: *HR* Heparin 5,000 UNIT/ML VIAL SQ SCH (06:03)
[2019-07-21] MEDS: Aspirin 325 MG TABLET PO SCH (09:27)
[2019-07-21] MEDS: Isosorbide MONOnitrate (24 HR) 30 MG TAB.ER.24H PO SCH (09:28)
[2019-07-21] MEDS: Azithromycin 250 MG TABLET PO SCH (09:28)
[2019-07-21] MEDS: predniSONE 20 MG TABLET PO SCH (09:28)
[2019-07-21] MEDS ORDERED: Acetaminophen 325 MG TABLET PO PRN (09:30)
[2019-07-21] MEDS: Budesonide/Formoterol 160/4.5 1 PUFF INH IH SCH (10:24)
[2019-07-21] MEDS: Tiotropium 18 MCG inhalation IH SCH (10:26)
[2019-07-21 15:20] VITALS: BP 122/72
== END 2019-07-21 10:50 | disposition home or self-care (01) ==
LOC: 3BNU 09:51 → EMEROOARM 09:51 → SUATTDRO 14:09 → 3BNU 15:31
PROVIDERS: ADMIT Internal Medicine; ATTEND Internal Medicine

== ENCOUNTER 2020-03-24 10:55 | Observation (INO) ==
[2020-03-24] MEDS ORDERED: Dexamethasone 4 MG/ML VIAL IVP STA (11:11)
[2020-03-24] MEDS ORDERED: levoFLOXacin 750 MG/150 ML 750 MG/150 ML BAG IVPB ONE (11:11)
[2020-03-24] MEDS ORDERED: Ipratropium/Albuterol Neb 3 ML IH ONE (11:11)
[2020-03-24 11:58] LABS: Basophils # 0.1 K/mcL (0.0-0.2); Basophils % 0.5 %; Eosinophils # 0.1 K/mcL (0.0-0.6); Eosinophils % 0.5 %; Hematocrit 46.7 % (35.3-44.9); Hemoglobin 14.8 g/dL (11.5-15.4); Immature Granulocytes % 0.9 % (0-4); Lymphocytes # 1.2 K/mcL (0.6-4.6); Lymphocytes % 8.2 %; Mean Corpuscular HGB Conc 31.7 g/dL (31.6-35.5); Mean Corpuscular Hemoglobin 28.2 pg (28.0-33.3); Mean Platelet Volume 9.4 fL (9.4-12.4); Monocytes # 0.6 K/mcL (0.0-1.3); Monocytes % 4.3 %; Neutrophils # 12.8 K/mcL (1.6-8.9); Platelet Count 348 K/mcL (140-400); Red Blood Count 5.25 M/mcL (3.82-4.97); Red Cell Distribution Width 15.8 % (11.5-14.5); Segmented Neutrophils % 85.6 %; White Blood Count 14.9 K/mcL (4.3-11.1)
[2020-03-24 12:03] LABS: INR 1.2; Prothrombin Time 13.9 Seconds (9.4-12.1)
[2020-03-24 12:06] LABS: Activated Partial Thrombo Time 37.8 Seconds (26.0-36.0)
[2020-03-24 12:23] LABS: Alanine Aminotransferase 14 Units/L (7-52); Albumin/Globulin Ratio 1.4 (1.1-2.2); Alkaline Phosphatase 61 Units/L (34-104); Aspartate Amino Transferase 12 Units/L (13-39); BUN/Creatinine Ratio 12 (6-26); Bilirubin,Indirect 0.5 mg/dL (0.0-1.0); Bilirubin,Total 0.5 mg/dL (0.3-1.0); Blood Urea Nitrogen 8 mg/dL (8-23); Calcium 9.2 mg/dL (8.6-10.3); Carbon Dioxide 26 mEq/L (23-29); Chloride 100 mEq/L (98-107); Globulin 2.8 g/dL (2.4-3.5); Glucose 121 mg/dL (70-105); Osmolality,Calculated 284 (280-300); Potassium 4.2 mEq/L (3.5-5.1); Sodium 137 mEq/L (136-145); Total Protein 6.8 g/dL (6.4-8.9); Troponin I < 0.03 ng/mL (< 0.04); eGFR For African Americans > 60 (> 60); eGFR For Non-African Americans > 60 (> 60)
[2020-03-24 12:44] LABS: Adenovirus Not Detected (Not Detect); Bordetella Pertussis Not Detected (Not Detect); Chlamydophila pneumoniae Not Detected (Not Detect); Coronavirus 229E Not Detected (Not Detect); Coronavirus HKU1 Not Detected (Not Detect); Coronavirus NL63 Not Detected (Not Detect); Coronavirus OC43 Not Detected (Not Detect); Human Metapneumovirus Not Detected (Not Detect); Human Rhinovirus/Enterovirus DETECTED (Not Detect); Influenza A Subtype 2009 H1 Not Detected (Not Detect); Influenza B Not Detected (Not Detect); Mycoplasma pneumoniae Not Detected (Not Detect); Parainfluenza Virus 1 Not Detected (Not Detect); Parainfluenza Virus 2 Not Detected (Not Detect); Parainfluenza Virus 3 Not Detected (Not Detect); Parainfluenza Virus 4 Not Detected (Not Detect); Respiratory Syncytial Virus Not Detected (Not Detect); SARS-CoV-2 Not Detected (Not Detect)
[2020-03-24] MEDS ORDERED: Naloxone 0.4 MG/ML INJ IVP PRN (13:30)
[2020-03-24] MEDS: MethylPREDNISolone 40 MG/ML VIAL IVP SCH (17:25)
[2020-03-24] MEDS: Ipratropium/Albuterol Neb 3 ML IH SCH ×2 (18:38→20:29)
[2020-03-24] MEDS: Doxycycline 100 MG CAPSULE PO SCH (20:20)
[2020-03-24] MEDS: carvediloL 25 MG TABLET PO SCH (20:20)
[2020-03-24] MEDS: Apixaban 5 MG TABLET PO SCH (20:20)
[2020-03-24] MEDS: *HR* LORazepam 0.5 MG TABLET PO PRN (20:22)
[2020-03-24] MEDS: Budesonide/Formoterol 160/4.5 1 PUFF INH IH SCH (20:29)
[2020-03-25] MEDS: Ipratropium/Albuterol Neb 3 ML IH SCH ×3 (03:47→07:14)
[2020-03-25 04:07] LABS: Basophils % 0.1 %; Hematocrit 44.7 % (35.3-44.9); Hemoglobin 14.1 g/dL (11.5-15.4); Immature Granulocytes % 1.2 % (0-4); Lymphocytes # 0.9 K/mcL (0.6-4.6); Lymphocytes % 11.7 %; Mean Corpuscular HGB Conc 31.5 g/dL (31.6-35.5); Mean Corpuscular Hemoglobin 28.3 pg (28.0-33.3); Mean Corpuscular Volume 89.8 fL (83.0-100.0); Mean Platelet Volume 9.4 fL (9.4-12.4); Monocytes # 0.4 K/mcL (0.0-1.3); Monocytes % 4.7 %; Neutrophils # 6.2 K/mcL (1.6-8.9); Platelet Count 297 K/mcL (140-400); Red Blood Count 4.98 M/mcL (3.82-4.97); Red Cell Distribution Width 15.4 % (11.5-14.5); Segmented Neutrophils % 82.3 %; White Blood Count 7.5 K/mcL (4.3-11.1)
[2020-03-25] MEDS: MethylPREDNISolone 40 MG/ML VIAL IVP SCH (06:13)
[2020-03-25] MEDS: Budesonide/Formoterol 160/4.5 1 PUFF INH IH SCH (07:18)
[2020-03-25] MEDS: Apixaban 5 MG TABLET PO SCH (08:01)
[2020-03-25] MEDS: Doxycycline 100 MG CAPSULE PO SCH (08:03)
[2020-03-25] MEDS: carvediloL 25 MG TABLET PO SCH (08:04)
[2020-03-25] MEDS ORDERED: Fluticasone Propionate Nasal 50 MCG/SPRAY BOTTLE NS SCH (09:00)
[2020-03-25] MEDS ORDERED: Isosorbide MONOnitrate (24 HR) 60 MG TAB.ER.24H PO SCH (09:00)
[2020-03-25] MEDS ORDERED: amLODIPine 5 MG TABLET PO SCH (09:00)
[2020-03-25] MEDS ORDERED: TIOTROPIUM BROMIDE IH SCH (09:00)
[2020-03-25] MEDS: *HR* LORazepam 0.5 MG TABLET PO PRN (09:05)
[2020-03-25] MEDS ORDERED: Tiotropium 18 MCG inhalation IH SCH (10:00)
[2020-03-25 11:42] VITALS: BP 124/70
== END 2020-03-25 12:18 | disposition home or self-care (01) ==
LOC: CDU 10:55 → EMEROOARM 10:55 → SUATTDRO 13:33 → CDU 14:50
PROVIDERS: ADMIT Internal Medicine; ATTEND Internal Medicine